=== PATIENT | female | born 1970 | race Caucasian/White ===

== ENCOUNTER → 2018-07-22 17:08 | Outpatient (CLI) | payer BC, SELFPAY ==
[2017-02-16 08:40] VITALS: BMI 33.1
[2018-07-22 18:10] LABS: Amphetamine Urine VISTA NEGATIVE (<1000 ng/mL); Barbiturate Urine VISTA NEGATIVE (< 200 ng/mL); Benzodiazepine Urine VISTA NEGATIVE (< 200 ng/mL); Cocaine Urine VISTA NEGATIVE (< 300 ng/mL); Ecstacy Urine VISTA NEGATIVE (< 500 ng/mL); Methadone Urine VISTA NEGATIVE (< 300 ng/mL); PCP Urine VISTA NEGATIVE (< 25 ng/mL); THC Urine VISTA NEGATIVE (< 50 ng/mL); Vista UDS pH Range 7
== END ==
PROVIDERS: Referring Provider Anesthesiology Pain Medicine; Visit Provider Anesthesiology Pain Medicine
DX: F11.20 Opioid dependence, uncomplicated (principal)
CPT/HCPCS: 80307

== ENCOUNTER → 2019-05-13 11:20 | Outpatient (CLI) | payer BC, SELFPAY ==
[2019-05-13 10:47] VITALS: BMI 31.4
--- NOTE | 2019-05-13 11:21 | RAD_ITS ---
STUDY: X-RAY CHEST REASON FOR EXAM: Female, 49 years old. Cough, wheezing x 2 weeks TECHNIQUE: PA and lateral views of the chest. COMPARISON: Comparison is made with prior study dated February 16, 2017. FINDINGS: Hyperinflation. Scattered calcified granulomas. There is no demonstrated pleural abnormality. Normal size heart. Normal mediastinum and alexia. Normal visualized pulmonary arteries. Normal visualized aortic arch and descending thoracic aorta. There are degenerative changes of the visualized thoracic spine. Normal visualized ribs, clavicles, and shoulders. There is no demonstrated abnormality of the visualized soft tissue structures of the upper abdomen. RAD/Chest PA and Lateral IMPRESSION: Hyperinflation. Scattered calcified granulomas. Electronically Signed: Norris Montalvo, at 13:15 EDT , Service support ,
== END ==
PROVIDERS: PCP Internal Medicine; Referring Provider Nurse Practitioner Family; Visit Provider Nurse Practitioner Family
DX: R05 Cough (principal)
CPT/HCPCS: 71046

== ENCOUNTER → 2019-06-10 07:07 | Outpatient (CLI) | payer BC, SELFPAY ==
[2019-05-23 09:51] VITALS: BMI 33.1
--- NOTE | 2019-06-12 11:34 | PFT ---
INTRODUCTION: The patient is a 49-year-old female that presents for pulmonary function studies secondary to a diagnosis of shortness of breath. Respiratory therapy reports good patient effort. Bronchodilators were used during testing. INTERPRETATION: Forced expiration spirometry demonstrates no evidence of a large airways obstructive ventilatory defect. There was no significant response to aerosolized bronchodilators, based upon strict ATS criteria. Spirograms are of good quality and plateau normally. Body plethysmography was performed and reveals lung volumes to be within normal limits. Diffusing capacity by single breath CO is mildly reduced at 64% of predicted. IMPRESSION: Isolated mild reduction in diffusing capacity, which could be related to an underlying pulmonary vascular disorder such as pulmonary hypertension. Clinical correlation is recommended.
== END ==
LOC: PSN 07:08
PROVIDERS: PCP Internal Medicine; Referring Provider Internal Medicine; Visit Provider Internal Medicine
DX: R06.02 Shortness of breath (principal); Z72.0 Tobacco use
CPT/HCPCS: 94060; 94726; 94729

== ENCOUNTER 2019-12-01 10:39 | Emergency (ER) | payer BC, SELFPAY ==
[2019-06-04 12:53] VITALS: BMI 33.1
[2019-12-01 10:40] VITALS: BP 141/103; PULSE 95; RESP 18; TEMP 36.6; O2SAT 100; BMI 31.3
--- NOTE | 2019-12-01 11:22 | ED.DCSUM_ITS ---
History of Present Illness Chief Complaint: General Illness Informant: Patient Onset: Days Context: Gradual Onset Timing: Continuous Narrative: She is a 49-year-old female that has a history of running back pain presenting with myalgias, low-grade fever, left lower jaw pain and swelling as well as a coronavirus exposure. Patient states she has a history of dental infection and has appointment actually to see her dentist the middle next month. 2 days ago she woke up and had some swelling and discomfort in her left lower jaw. She had some leftover amoxicillin that she started taking but is continued to have swel ling and discomfort. She denies any difficulty swallowing. She denies any pinpoint dental pain. Today she took her temperature and is 100.1. She take Tylenol for this. She notes over the past 2 days she has had a mild cough, wheezing, runny nose, abdominal cramping and generalized malaise. She was notified today that the person she works next to at work tested positive for Covid 19. Patient denies any difficulty breathing or shortness of breath. She does have an albuterol inhaler that she uses as needed at home. She denies any chest pain or sore throat. She does have some mild discomfort in her left ear. She does smoke cigarettes but states she is trying to quit. No other complaints at this time. Past Medical History - Allergies and Home Meds Allergies/Adverse Reactions: Allergies tramadol Allergy (Verified 12/01/19 10:44) Other SEIZURES Primary Care Physician: Gerardo Marinelli MD [Primary Care Provider] - Past Medical History: - - Tobacco abuse, chronic back pain Surgical History: noncontributory Smoking Status: Current every day smoker Alcohol: None Drugs: None Review of Systems General: Reports: Chills, Fever, Malaise. Denies: Sweats Eyes: Denies: Visual changes - bilaterally, Diplopia ENT: Reports: Left ear pain, - - left lower jaw swelling . Denies: Rhinorrhea, Sore throat Cardiovascular: Denies: Chest pain, Palpitations Respiratory: Reports: Cough. Denies: Dyspnea, Sputum, Dyspnea on exertion Gastrointestinal: Reports: Abdominal pain, Nausea. Denies: Vomiting, Diarrhea, Melena, Hematochezia Genitourinary: Denies: Dysuria, Hematuria, Frequency Musculoskeletal: Reports: Myalgias. Denies: Back pain, Extremity Pain Skin: Denies: Rash, Wounds Neurological: Denies: Headache, Weakness, Numbness Physical Exam Vital Signs/Narrative: Vital Signs Temp Pulse Resp BP Pulse Ox 12/01/19 10:40 98 F 95 18 141/103 H 100 Inital Vital Signs reviewed: Yes General: Well nourished, Well developed, No Acute Distress Head: Normocephalic, Atraumatic Eyes: Perrl, EOMI ENT: Moist mucous membranes, No rhinorrhea, TM's clear, - - Localized swelling of the left mandible. No appreciable abscess. There is swelling of the gingiva around the left lower premolars. Widespread dental decay present. No pinpoint area of dental tenderness. Sublingual mucosa is soft. No trismus. Negative for: Nasal congestion, Sinus tenderness Neck: Supple, Nontender, No JVD, - - Left anterior superior chain lymphadenopathy present. Cardiovascular: Regular rate, Regular rhythm, No murmurs Respiratory: No distress, Chest nontender, Wheezing. Negative for: Decreased Air Movement, Retractions Abdomen: Soft, Nontender, Nondistended, Normal bowel sounds Back: Nontender, Normal Inspection Extremities: Nontender, No edema Skin: Normal color, No rash Neurological: Alert, Oriented x3, Cranial nerves II-XII grossly intact, Normal Strength, Normal Sensation Psychological: Normal affect, Normal Mood Diagnostic/Tx/Re-eval - Medical Decision Making Evaluated for jaw swelling with associated dental discomfort as well as generalized malaise. She has a known Covid exposure. Patient will be tested for Covid but I suspect likely that is causing her systemic symptoms. She is also placed on Pen-VK for suspected dental infection. There is no obvious abscess amenable to I&D at this time. She does have follow-up with her dentist in a couple weeks. She is counseled to quit smoking. Patient is counseled on quarantine precautions. She not have any airway compromise at this time. She is having some slight wheezing but has normal vital signs. She will be started on a course of prednisone for likely COPD/asthma exacerbation however I do not think a chest x-ray is indicated at this time. Patient has albuterol inhaler to use at home. She is given Motrin for her discomfort. Patient is counseled on return precautions and signs of dehydration or worsening shortness of breath. She verbalizes agreement understand this plan. She is discharged home in stable condition. ED Disposition - Plan for ED Patient: Disposition: Home or Assisted Living Diagnosis: Dentalgia, Suspected COVID-19 virus infection, Wheezing Instructions: ED ABSCESS DENTAL, ED PNEUMONITIS Adult Prescriptions: Prednisone [Deltasone] 40 mg PO DAILY #8 tab Transmission Status: Pending to [id number] Ibuprofen [Motrin] 600 mg PO Q6H PRN PRN #20 tab PRN Reason: Pain Score 1-10/10 Transmission Status: Pending to [id number] Penicillin V Potassium 500 mg PO 4X/DAY #40 tab Transmission Status: Pending to [id number] Referrals: Gerardo Marinelli MD [Primary Care Provider] - Additional Instructions: Please follow-up with your dentist. You were tested for Covid today. This will take a couple days for the results to come back but in the meantime act as if you do have it and quarantine yourself. Drink lots of fluids to prevent dehydration. Use your inhaler as needed for shortness breath or wheezing. Return to the emergency room immediately if you start having a hard time breathing.
[2019-12-01] MEDS: Penicillin Vk 250 MG Tablet 500 MG PO (12:00)
[2019-12-01] MEDS: predniSONE 20 MG Tablet 60 MG PO (12:03)
[2019-12-01] MEDS: Ibuprofen 600 MG Tablet PO (12:03)
== END 2019-12-01 12:17 | disposition home or self-care (01) ==
PROVIDERS: Emergency Provider Emergency Medicine; PCP Internal Medicine
DX: K08.89 Other specified disorders of teeth and supporting structures (principal); R06.2 Wheezing; Z20.828 Contact with and (suspected) exposure to other viral communicable diseases; F17.210 Nicotine dependence, cigarettes, uncomplicated; Z88.5 Allergy status to narcotic agent; Z88.8 Allergy status to other drugs, medicaments and biological substances
CPT/HCPCS: 87635; 99281; U0003

== ENCOUNTER → 2020-03-01 16:32 | Outpatient (CLI) | payer BC, SELFPAY | PROVIDERS: PCP Internal Medicine; Referring Provider Otolaryngology; Visit Provider Otolaryngology | DX: H93.12 Tinnitus, left ear (principal) ==

== ENCOUNTER 2020-06-11 18:02 | Emergency (ER) | payer BC, SELFPAY ==
[2020-06-11 18:03] VITALS: BP 163/105; PULSE 85; RESP 18; TEMP 36.6; O2SAT 100; BMI 29.9
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
[2020-06-11] MEDS: Clindamycin HCl 150 MG Capsule 450 MG PO (18:55)
[2020-06-11 18:57] VITALS: BP 142/94; PULSE 82
== END 2020-06-11 19:17 | disposition home or self-care (01) ==
LOC: ED 19:06
PROVIDERS: Emergency Provider Student in an Organized Health Care Education/Training Program; PCP Internal Medicine
DX: L03.811 Cellulitis of head [any part, except face] (principal); F17.200 Nicotine dependence, unspecified, uncomplicated; M19.90 Unspecified osteoarthritis, unspecified site; Z79.1 Long term (current) use of non-steroidal anti-inflammatories (NSAID)
CPT/HCPCS: 99283

== ENCOUNTER → 2020-08-05 14:37 | Outpatient (CLI) | payer BC, SELFPAY ==
[2020-06-16 15:17] VITALS: BMI 29.9
--- NOTE | 2020-08-05 14:45 | RAD_ITS ---
STUDY: X-RAY - RIGHT FOOT CLINICAL: Female, 50 years old. FOOT PAIN TECHNIQUE: 3 view(s) of the foot. COMPARISON: None. FINDINGS: Normal talus, calcaneus, and tarsal bones. Small plantar calcaneal enthesophyte. 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 Normal metatarsi. Normal metatarsophalangeal joint of the great toe. There is a bipartite tibial sesamoid. Normal interphalangeal joint of the great toe. Normal phalanges of the great toe. Normal second through fifth metatarsophalangeal joints. Normal interphalangeal joints and phalanges of the lesser toes. The soft tissue structures are unremarkable. 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 MRI may be useful. Electronically Signed: Collin Leach MD at 8:53 EDT Tel , Service support ,
== END ==
LOC: RAD 14:38
PROVIDERS: PCP Internal Medicine; Referring Provider Anesthesiology Pain Medicine; Visit Provider Anesthesiology Pain Medicine
DX: M79.673 Pain in unspecified foot (principal)
CPT/HCPCS: 73630

== ENCOUNTER 2021-11-02 09:27 | Emergency (ER) | payer BC, SELFPAY ==
[2021-11-02 09:28] VITALS: BP 168/98; PULSE 100; RESP 18; TEMP 36.8; O2SAT 100; BMI 28.6
--- NOTE | 2021-11-02 09:41 | EX.ED.DYSGE1 ---
HPI History of Present Illness Chief Complaint: Abd Pain Informant: patient Narrative Narrative: 1-year-old female presenting with concerns for a hernia. The patient states that she does a lot of heavy lifting at work. She has been experiencing an intermittent burning sensation in her right inguinal region for the past several weeks. Over the past week she has felt a bulge that comes and goes but is usually there when she stands. This morning she states she is in a severe amount of pain. She notes that she is unable to really bend over or stand up straight. She denies any urinary symptoms. No vomiting. PFSH PFS Medical History Arthritis Back pain Cervical cancer Fatigue History of abscess of skin and subcutaneous tissue Knee pain Scoliosis Tubal Home Medications hydrocodone 7.5 mg-acetaminophen 325 mg tablet 1 tab PO 4X/DAY 02/16/17 [History Last Taken Unknown] ascorbic acid (vitamin C) 500 mg capsule 500 mg PO DAILY 04/28/19 [History Last Taken Unknown] pregabalin 75 mg capsule 75 mg PO BID 05/06/19 [History Last Taken Unknown] albuterol sulfate 90 mcg/actuation breath activated powder inhaler 2 inh inhalation Q6H PRN shortness of breath or wheezing #1 ea 05/07/19 [Rx Last Taken Unknown] fluticasone propionate 50 mcg/actuation nasal spray,suspension See Rx Instructions .Route .COMPLEX #16 mL 06/04/19 [Rx Last Taken Unknown] celecoxib 200 mg capsule 200 mg PO DAILY 06/11/20 [History Last Taken Unknown] budesonide-formoterol HFA 80 mcg-4.5 mcg/actuation aerosol inhaler (Symbicort) 2 puff inhalation BID PRN Bronchospasm 11/02/21 [History Last Taken Unknown] montelukast 10 mg tablet 10 mg PO QHS PRN allergies 11/02/21 [History Last Taken Unknown] Allergy/AdvReac Type Severity Reaction Status Date / Time tramadol Allergy Other Verified 11/02/21 09:29 Family History Father Diabetes CVA (cerebral vascular accident) Sister Ovarian cancer Son , at 6 weeks - CHF Heart disease Other Cancer Surgical History History of arthroscopic knee surgery History of hysterectomy History of knee replacement Social History Smoking Status: Current every day smoker tobacco type: cigarettes alcohol intake: current alcohol intake frequency: holidays/special occasions only substance use type: does not use what type of physical activity do you participate in: walking ROS ROS ED Constitutional Constitutional ED: Denies chills or weight loss Eyes Eyes: Denies change in vision or diplopia ENT ENT ED: Denies ear pain, rhinorrhea or sore throat Cardiovascular Cardiovascular: Denies chest pain, orthopnea, palpitations or racing heartbeat Respiratory/Chest Respiratory/Chest: Denies cough, dyspnea or orthopnea Gastrointestinal Gastrointestinal: Reports abdominal pain; Denies diarrhea, nausea or vomiting Genitourinary Genitourinary ED: Denies dysuria, hematuria or urinary frequency Musculoskeletal Musculoskeletal: Denies arthralgias or myalgias Integumentary Denies abscess or rash Neurologic Neurologic: Denies headache(s) or weakness Psychiatric Psychiatric: Denies anxiety, depression, suicidal ideation or suicidal thoughts Endocrine Endocrinology: Denies polydipsia, polyphagia or polyuria Allergic/Immunologic Allergic/Immunologic ED: Denies mouth swelling, tongue swelling or urticaria EXAM Physical Exam Narrative Exam Narrative: Patient appears in pain Const Vital Signs: 11/02/21 09:28 11/02/21 10:46 Temperature 98.3 F Temperature Source Temporal Pulse Rate 100 91 Respiratory Rate 18 18 Blood Pressure 168/98 H 144/92 H Blood Pressure Mean 121 109 Pulse Ox 100 99 Oxygen Delivery Method Room Air Room Air Positive well nourished and well developed General Appearance ED: well developed HEENT Reports normocephalic, head/scalp atraumatic and moist mucous membranes Eyes PERRL and EOMs intact bilaterally Neck no lymphadenopathy, supple and no JVD Resp normal respiratory effort and clear to auscultation bilaterally Cardio regular rate, regular rhythm and no murmurs GI normal to inspection, nondistended, normoactive bowel sounds and non-tender GI Narrative: There is a palpable inguinal hernia. It is very tender to palpation. Palpation: soft Back/Spine no CVA tenderness and normal ROM Extremity normal to inspection General Extremety ED: Negative for edema General Extremity: Negative for edema Neuro oriented x3 and CN's II-XII intact bilaterally Sensorium / Orientation: alert Motor Exam: strength 5/5 throughout Psych mental status grossly normal Mood & Affect: Negative for depressed or tearful Skin no rashes or lesions noted and no wounds MDM MDM MDM Narrative Medical decision making narrative: IV was established and the patient received pain medication. I was successful at reducing the hernia. Basic blood work was negative. CT of the abdomen pelvis was obtained. There is a small right inguinal hernia containing fat and a moderate sized umbilical hernia containing fat. Patient was reassessed and is still having significant pain in the inguinal region. She is continues to describe it as a burning sensation. I spoke with our surgeon Dr. Cleveland happy to see the patient in the office. I gave her additional Dilaudid and a Lidoderm patch. The patient was reassessed. Lab Data Attestation: I reviewed the patient's lab results. Labs: Laboratory Results - last 24 hr 11/02/21 11/02/21 11/02/21 09:53 09:53 09:53 WBC 6.9 RBC 4.31 Hgb 13.9 Hct 41.7 MCV 96.8 MCH 32.3 H MCHC 33.3 RDW Std Deviation 46.0 H RDW Coeff of Efraín 12.8 Plt Count 297 MPV 9.1 Immature Gran % (Auto) 0.300 Neut % (Auto) 59.2 Lymph % (Auto) 26.3 [place] % (Auto) 12.6 H Eos % (Auto) 0.9 Baso % (Auto) 0.7 Absolute Neuts (auto) 4.1 Absolute Lymphs (auto) 1.81 Nucleated RBC % 0 Sodium 138 Potassium 4.3 Chloride 104 Carbon Dioxide 27.0 Anion Gap 7 BUN 9 Creatinine 0.64 Estim Creat Clear Calc 87.78 Est GFR (MDRD) Af Amer 124 Est GFR (MDRD) Non-Af 102 BUN/Creatinine Ratio 14.0 Glucose 106 Lactic Acid 1.0 Calcium 9.2 Total Bilirubin 0.40 AST 13 L ALT 17 Alkaline Phosphatase 82 Total Protein 8.0 Albumin 3.7 Globulin 4.3 H Albumin/Globulin Ratio 0.9 Radiography Diagnostic Testing: Clinical Impression(s) from Imaging Studies Abdomen/Pelvis CT 11/02/21 10:12 IMPRESSION: Moderate sized umbilical hernia containing fat. There is evidence of prior anterior abdominal wall hernia repair. Small right inguinal hernia containing fat. Status post cholecystectomy. Electronically Signed: Norris Montalvo MD at 10:36 EDT , Discharge Plan Triage Chief Complaint: Abd Pain ED Provider: Kaden Lay Dx/Rx/DC Orders Clinical Impression: Inguinal hernia, right, Hernia, umbilical, Acute pain Prescriptions: No Action ascorbic acid (vitamin C) 500 mg capsule 500 mg PO DAILY pregabalin 75 mg capsule 75 mg PO BID hydrocodone-acetaminophen 1 TABLET tablet 1 tab PO 4X/DAY Label Comments: TAKE 1 TABLET BY MOUTH 4 TIMES A DAY celecoxib 200 mg capsule 200 mg PO DAILY montelukast 10 mg tablet 10 mg PO QHS PRN (Reason: allergies) budesonide-formoterol [Symbicort] 80-4.5 mcg/actuation HFA aerosol inhaler 2 puff INHALATION BID PRN (Reason: Bronchospasm) albuterol sulfate 90 mcg/actuation aerosol powdr breath activated 2 inh INHALATION Q6H PRN (Reason: shortness of breath or wheezing) Qty: 1 1RF fluticasone propionate 50 mcg/actuation spray,suspension See Rx Instructions .ROUTE .COMPLEX Qty: 16 1RF Dose Instruction: USE 2 SPRAYS IN EACH NOSTRIL ONCE DAILY Rx Instructions: USE 2 SPRAYS IN EACH NOSTRIL ONCE DAILY Primary Care Provider: Gerardo Marinelli Referrals: Gerardo Marinelli MD [Primary Care Provider] -
[2021-11-02] MEDS: HYDROmorphone 1 MG/ML Syringe IV ×2 (09:58→11:00)
[2021-11-02] MEDS: 0.9% Normal Saline 1,000 ML 200 ML IV (09:59)
[2021-11-02 10:09] LABS: Absolute Lymphocyte Count 1.81 X10^3/uL (0.83-4.51); Absolute Neutrophil Count 4.1 X10^3/uL (2.0-7.7); Basophil# 0.05 X10^3/uL; Basophil% 0.7 % (0-1); Eosinophil# 0.06 X10^3/uL; Eosinophils% 0.9 % (0-5); Hematocrit 41.7 % (37-47); Hemoglobin 13.9 g/dL (12.0-15.0); Lymphocyte # 1.81 X10^3/ul (0.83-4.51); Lymphocyte % 26.3 % (19-41); Mean Corp Hgb Conc 33.3 g/dL (32-36); Mean Corpuscular Hgb 32.3 pg (27.0-32.0); Mean Corpuscular Volume 96.8 fL (81-99); Mean Platelet Vol. 9.1 fl (6.2-12.0); Monocyte# 0.87 X10^3/uL; Monocyte% 12.6 % (0-10); NRBC Flagged by Analyzer 0 % (0-5); Neutrophil # 4.08 X10^3/uL (2.7-7.7); Neutrophil % 59.2 % (47-70); Platelet Count 297 K/mm3 (150-450); RBC Distribution Width CV 12.8 % (11.6-14.6); Red Blood Count 4.31 M/mm3 (4.2-5.4); White Blood Count 6.9 K/mm3 (4.4-11.0)
[2021-11-02] MEDS: Contrast Allergy Safety Check IV (10:09)
--- NOTE | 2021-11-02 10:12 | CT_ITS ---
STUDY: CT ABDOMEN AND PELVIS WITH CONTRAST REASON FOR EXAM: Female, 51 years old. Strangulated inguinal hernia/ RLQ Pain RADIATION DOSAGE (If Supplied By Facility): CTDIvol = ( 11.13 ) mGy, DLP = ( 648.70 ) mGycm TECHNIQUE: Transaxial images were obtained from the dome of the diaphragm to the symphysis pubis without oral contrast. IV 100mL Isovue-300 was administered. Sagittal and coronal images were reconstructed. Individualized dose optimization techniques were used for this CT. COMPARISON: Comparison is made with prior study dated 07/21/2015. FINDINGS: Stable minimal linear scarring in the medial aspect of the lingular segment of the left upper lobe. Coronary artery calcification. Normal liver. Normal gallbladder and extrahepatic biliary system. Normal spleen. Normal pancreas. Normal bilateral adrenal glands. Normal right kidney. Normal left kidney. Normal visualized stomach. Normal small intestine. There are scattered colonic diverticula consistent with diverticulosis. There is non-visualization of the appendix. Normal abdominal aorta. Normal inferior vena cava. Normal retroperitoneum. Normal urinary bladder. There is absence of the uterus consistent with a prior hysterectomy. Calcified phleboliths are seen in the pelvis. There is a small umbilical hernia containing fat. Moderate-sized umbilical hernia containing fat. Surgical clips are seen deep to the anterior abdominal wall most likely secondary to prior ventral hernia repair. There are mild degenerative changes of the visualized lumbar spine. CT/Abdomen/Pelvis W IV Cont ONLY IMPRESSION: Moderate sized umbilical hernia containing fat. There is evidence of prior anterior abdominal wall hernia repair. Small right inguinal hernia containing fat. Status post cholecystectomy. Electronically Signed: Norris Montalvo MD at 10:36 EDT ,
[2021-11-02 10:24] LABS: ALB/GLOB Ratio 0.9 RATIO (0.9-2.4); AST(SGOT) 13 U/L (15-37); Alanine Aminotransfer ALT/SGPT 17 U/L (13-56); Albumin, Serum 3.7 g/dL (3.2-5.0); Alkaline Phosphatase 82 U/L (45-117); Anion Gap 7 (5-15); BUN 9 mg/dL (7-18); Calcium,Total 9.2 mg/dL (8.5-10.1); Chloride 104 mmol/L (98-107); Creatinine, Serum 0.64 mg/dL (0.55-1.02); EST Glomerular Filtration Rate 102 mL/min (>60); Est Glom Filt Rate - Afr Amer 124 mL/min (>60); Estimated Creatinine Clearance 87.78 ml/min; Globulin 4.3 g/dL (2.2-4.2); Glucose 106 mg/dL (74-106); Potassium 4.3 mmol/L (3.5-5.1); Sodium Level 138 mmol/L (136-145)
[2021-11-02 10:46] VITALS: BP 144/92; PULSE 91; RESP 18; O2SAT 99
[2021-11-02] MEDS: Lidocaine 5% Patch 1 PATCH TOPICAL (11:01)
[2021-11-02 12:05] VITALS: BP 140/88; PULSE 77; RESP 16; O2SAT 97
== END 2021-11-02 12:24 | disposition home or self-care (01) ==
PROVIDERS: Emergency Provider Emergency Medicine; PCP Internal Medicine; Visit Provider Emergency Medicine
DX: K42.9 Umbilical hernia without obstruction or gangrene (principal); F17.210 Nicotine dependence, cigarettes, uncomplicated; K40.90 Unilateral inguinal hernia, without obstruction or gangrene, not specified as recurrent
CPT/HCPCS: 74177; 80053; 83605; 85025; 96361; 96374; 96376; 99283; J7030; Q9967; A4216

== ENCOUNTER 2022-10-16 09:19 | Emergency (ER) | payer BC, SELFPAY ==
[2022-10-16 09:20] VITALS: BP 161/105; PULSE 83; RESP 22; TEMP 35.7; O2SAT 100
[2022-10-16 09:39] VITALS: BMI 28.4
--- NOTE | 2022-10-16 10:07 | EX.ED.DYSGE1 ---
HPI History of Present Illness Chief Complaint: Shortness of Breath Informant: patient Onset/Context/Timing Onset: Days (3) Context: Sudden Onset Timing: Continuous Quality: Stabbing Location: Left lower chest and back Worsened by: Inhalation Relieved by: Nothing Narrative Narrative: Patient presents with shortness of breath and chest pain that has been getting worse over the past 3 days. Patient states her pain is over the left side of her chest and radiates into her back. Patient describes it as stabbing. Patient states it is worse when she breathes in. Patient states nothing seems to help with it. Patient states she is on [place] for chronic back pain. Patient states she has taken this with no improvement. Patient denies any fevers or chills. Patient denies any nausea or vomiting. Patient denies any headaches. [facility] Medical History Arthritis Back pain Cervical cancer Fatigue History of abscess of skin and subcutaneous tissue Knee pain Scoliosis Tubal Home Medications hydrocodone 7.5 mg-acetaminophen 325 mg tablet 1 tab PO 4X/DAY 02/16/17 [History Last Taken Unknown] ascorbic acid (vitamin C) 500 mg capsule 500 mg PO DAILY 04/28/19 [History Last Taken Unknown] pregabalin 75 mg capsule 75 mg PO BID 05/06/19 [History Last Taken Unknown] albuterol sulfate 90 mcg/actuation breath activated powder inhaler 2 inh inhalation Q6H PRN shortness of breath or wheezing #1 ea 05/07/19 [Rx Last Taken Unknown] celecoxib 200 mg capsule 200 mg PO DAILY 06/11/20 [History Last Taken Unknown] budesonide-formoterol HFA 80 mcg-4.5 mcg/actuation aerosol inhaler (Symbicort) 2 puff inhalation BID PRN Bronchospasm 11/02/21 [History Last Taken Unknown] lidocaine 5 % topical patch (Lidoderm) 1 patch topical DAILY #15 ea 11/02/21 [Rx Last Taken Unknown] Allergy/AdvReac Type Severity Reaction Status Date / Time tramadol Allergy Other Verified 11/03/21 09:27 Family History Father Diabetes CVA (cerebral vascular accident) Sister Ovarian cancer Son , at 6 weeks - CHF Heart disease Other Cancer Surgical History History of arthroscopic knee surgery History of hysterectomy History of knee replacement Hx of hernia repair Social History Smoking Status: Current every day smoker tobacco type: cigarettes alcohol intake: current alcohol intake frequency: holidays/special occasions only substance use type: does not use what type of physical activity do you participate in: walking ROS ROS ED Constitutional Constitutional ED: Denies chills or fever(s) Eyes Eyes: Denies blurry vision or change in vision ENT ENT ED: Denies rhinorrhea or sore throat Cardiovascular Cardiovascular: Reports chest pain; Denies palpitations Respiratory/Chest Respiratory/Chest: Reports dyspnea; Denies cough Gastrointestinal Gastrointestinal: Denies nausea or vomiting Genitourinary Genitourinary ED: Denies dysuria or hematuria Musculoskeletal Musculoskeletal: Reports back pain; Denies neck pain Integumentary Denies abscess or rash Neurologic Neurologic: Denies headache(s) or weakness Allergic/Immunologic Allergic/Immunologic ED: Denies mouth swelling or urticaria EXAM Physical Exam Const Vital Signs: 10/16/22 09:20 10/16/22 09:44 Temperature 96.2 F L Temperature Source Temporal Pulse Rate 83 Respiratory Rate 22 H Respiratory Depth Shallow Respiratory Pattern Tachypnea Blood Pressure 161/105 H Blood Pressure Mean 123 Pulse Ox 100 Positive well nourished and well developed General Appearance ED: well developed and NAD HEENT Reports moist mucous membranes Neck supple and no JVD Chest Wall Chest Narrative: There is mild tenderness over the left lower ribs laterally, there is no bony crepitance or step-off. There is no subcutaneous emphysema noted. Resp normal respiratory effort and clear to auscultation bilaterally Effort and Inspection: pain with movement Cardio regular rate, regular rhythm and no murmurs GI normal to inspection, nondistended, normoactive bowel sounds and non-tender Palpation: soft Extremity normal to inspection General Extremety ED: Negative for edema or tenderness General Extremity: Negative for edema Neuro oriented x3, CN's II-XII intact bilaterally and no sensory deficits noted Sensorium / Orientation: alert Motor Exam: strength 5/5 throughout Psych mental status grossly normal Skin no rashes or lesions noted MDM MDM MDM Narrative Medical decision making narrative: Differential diagnosis includes pneumothorax, pneumonia, pulmonary embolism, pleurisy, musculoskeletal pain, cardiac dysrhythmia, and cardiac ischemia. EKG will be obtained to assess for cardiac dysrhythmia and cardiac ischemia. Chest x-ray will be obtained to assess for pneumonia and pneumothorax. CBC will be obtained to assess for leukocytosis and anemia. Basic metabolic profile will be obtained to assess for electrolyte abnormality and renal function. High-sensitivity troponin will be obtained to assess for cardiac ischemia. D-dimer will be obtained to assess for pulmonary embolism. Lab Data Attestation: I reviewed the patient's lab results. Lab results narrative: CBC was reviewed and was within normal limits. Basic metabolic profile was reviewed and was within normal limits. High-sensitivity troponin was reviewed and was normal at 4. D-dimer was reviewed and was normal at 0.29. Labs: Laboratory Results - last 24 hr 10/16/22 10:25 WBC 6.6 RBC 4.04 L Hgb 12.9 Hct 39.4 MCV 97.5 MCH 31.9 MCHC 32.7 RDW Std Deviation 44.6 H RDW Coeff of Efraín 12.5 Plt Count 252 MPV 9.8 Immature Gran % (Auto) 0.600 Neut % (Auto) 75.5 H Lymph % (Auto) 13.5 L [place]verse % (Auto) 9.1 Eos % (Auto) 0.8 Baso % (Auto) 0.5 Absolute Neuts (auto) 5.0 Absolute Lymphs (auto) 0.89 Nucleated RBC % 0 D-Dimer Quant (PE/DVT) 0.29 Sodium 145 Potassium 4.0 Chloride 110 H Carbon Dioxide 31.0 Anion Gap 4 L BUN 10 Creatinine 0.71 Estim Creat Clear Calc 78.22 Est GFR (MDRD) Af Amer 110 Est GFR (MDRD) Non-Af 91 BUN/Creatinine Ratio 14.1 Glucose 105 Calcium 8.8 Troponin I High Sens 4 Radiography Chest X-Ray - ED: 2 View, Read by ED Physician, Read by Radiologist and No Acute Disease Diagnostic Testing: Clinical Impression(s) from Imaging Studies Chest X-Ray 10/16/22 10:45 IMPRESSION: Hyperinflation. No acute abnormality is seen. Electronically Signed: Norris Montalvo MD at 11:09 EDT , PA and lateral chest x-ray was obtained. There are 2 views. On my independent interpretation, lung herman are hyperinflated. There is normal cardiac silhouette. Bony thorax is normal. There is no acute process noted. Radiologist also interpreted the x-ray and agrees. EKG Initial EKG: Attestation: I personally reviewed and interpreted this EKG as follows: Interpretation: Sinus Rhythm (67) and No Acute Injury Pattern Comments: EKG was obtained. On my independent interpretation, it showed a normal sinus rhythm with a rate of 67. NC interval, QRS interval, and QTc intervals were all normal. [place] was normal. There are no acute ST or T wave changes. Prior EKG tracings: available for review Prior: Unchanged (02/16/2017) Treatment and Re-Evaluation :: Patient was given a dose of morphine here. Patient was feeling better on reevaluation. Patient was advised of her findings. Patient was advised that this could be pleurisy or musculoskeletal pain. Patient was instructed to take ibuprofen as needed for pain. Patient also states she has [place] at home. Patient was instructed to take this as needed for pain as well. Patient has a HEART score of 2. Patient was advised that this is low risk for acute cardiac event. Patient was instructed to follow-up with her primary care physician in 5 to 7 days. Patient understood and was agreeable with the plan. All questions were answered. Discharge Plan Triage Chief Complaint: Shortness of Breath ED Provider: Onesimo Gomez Dx/Rx/DC Orders Clinical Impression: Acute chest wall pain Instructions: ED Chest Pain, Noncardiac Prescriptions: No Action ascorbic acid (vitamin C) 500 mg capsule 500 mg PO DAILY pregabalin 75 mg capsule 75 mg PO BID hydrocodone-acetaminophen 1 TABLET tablet 1 tab PO 4X/DAY Patient Comments: TAKE 1 TABLET BY MOUTH 4 TIMES A DAY celecoxib 200 mg capsule 200 mg PO DAILY budesonide-formoterol [Symbicort] 80-4.5 mcg/actuation HFA aerosol inhaler 2 puff INHALATION BID PRN (Reason: Bronchospasm) lidocaine [Lidoderm] 5 % adhesive patch,medicated 1 patch topical DAILY Qty: 15 0RF Rx Instructions: leave on most painful area for up to 12 hrs albuterol sulfate 90 mcg/actuation aerosol powdr breath activated 2 inh INHALATION Q6H PRN (Reason: shortness of breath or wheezing) Qty: 1 1RF Primary Care Provider: Gerardo Marinelli Referrals: Gerardo Marinelli MD [Primary Care Provider] - 3-5 Days Disposition Disposition: Home, Self Care
--- NOTE | 2022-10-16 10:15 | EKG12_ITS ---
Test Reason : SOB Blood Pressure : / mmHG Vent. Rate : 067 BPM Atrial Rate : 067 BPM P-R Int : 186 ms QRS Dur : 078 ms QT Int : 400 ms P-R-T Axes : 060 055 059 degrees QTc Int : 422 ms Normal sinus rhythm Normal ECG Confirmed by SUZY CAPONE, CARROLL ([id number]), newspaper photo editor EUGENE MARTIN ([id number]) on 10/19/2022 1:50:19 PM Referred By: Confirmed By:CARROLL ALMONTE MD
[2022-10-16] MEDS: Morphine 4 MG/ML Syringe IV (10:27)
[2022-10-16 10:34] LABS: Absolute Lymphocyte Count 0.89 X10^3/uL (0.83-4.51); Basophil# 0.03 X10^3/uL; Basophil% 0.5 % (0-1); Eosinophil# 0.05 X10^3/uL; Eosinophils% 0.8 % (0-5); Hematocrit 39.4 % (37-47); Hemoglobin 12.9 g/dL (12.0-15.0); Lymphocyte # 0.89 X10^3/ul (0.83-4.51); Lymphocyte % 13.5 % (19-41); Mean Corp Hgb Conc 32.7 g/dL (32-36); Mean Corpuscular Hgb 31.9 pg (27.0-32.0); Mean Corpuscular Volume 97.5 fL (81-99); Mean Platelet Vol. 9.8 fl (6.2-12.0); Monocyte% 9.1 % (0-10); NRBC Flagged by Analyzer 0 % (0-5); Neutrophil # 4.96 X10^3/uL (2.7-7.7); Neutrophil % 75.5 % (47-70); Platelet Count 252 K/mm3 (150-450); RBC Distribution Width CV 12.5 % (11.6-14.6); RBC Distribution Width SD 44.6 fl (35.1-43.9); Red Blood Count 4.04 M/mm3 (4.2-5.4); White Blood Count 6.6 K/mm3 (4.4-11.0)
--- NOTE | 2022-10-16 10:45 | RAD_ITS ---
STUDY: X-RAY CHEST REASON FOR EXAM: Female, 52 years old. Chest pain TECHNIQUE: PA and lateral views of the chest. COMPARISON: Comparison is made with prior study dated May 13, 2019. FINDINGS: EKG electrodes are seen. Hyperinflation. Scattered calcified granulomas. There is no demonstrated pleural abnormality. Normal size heart. Normal mediastinum and alexia. Normal visualized pulmonary arteries. Normal visualized aortic arch and descending thoracic aorta. There are diffuse degenerative changes of the visualized thoracic spine. Normal visualized ribs, clavicles, and shoulders. There is no demonstrated abnormality of the visualized soft tissue structures of the upper abdomen. RAD/Chest PA and Lateral IMPRESSION: Hyperinflation. No acute abnormality is seen. Electronically Signed: Norris Montalvo MD at 11:09 EDT ,
[2022-10-16 10:51] LABS: Anion Gap 4 (5-15); BUN 10 mg/dL (7-18); BUN/Creat Ratio 14.1 RATIO (10-20); Calcium,Total 8.8 mg/dL (8.5-10.1); Chloride 110 mmol/L (98-107); Creatinine, Serum 0.71 mg/dL (0.55-1.02); EST Glomerular Filtration Rate 91 mL/min (>60); Est Glom Filt Rate - Afr Amer 110 mL/min (>60); Estimated Creatinine Clearance 78.22 ml/min; Glucose 105 mg/dL (74-106); Sodium Level 145 mmol/L (136-145); Troponin-I HS 4 pg/mL (3.0-54.0)
[2022-10-16 11:22] LABS: D-Dimer Quantitative (DVT/PE) 0.29 FEU/ug/m (0.27-0.49)
[2022-10-16 12:25] VITALS: BP 135/82; PULSE 75; RESP 18; O2SAT 98
== END 2022-10-16 12:26 | disposition home or self-care (01) ==
PROVIDERS: Emergency Provider Emergency Medicine; PCP Internal Medicine; Visit Provider Emergency Medicine
DX: R07.89 Other chest pain (principal); F17.210 Nicotine dependence, cigarettes, uncomplicated; R06.02 Shortness of breath; Z90.710 Acquired absence of both cervix and uterus; Z96.659 Presence of unspecified artificial knee joint
CPT/HCPCS: 71046; 80048; 84484; 85025; 85379; 93005; 96374; 99284; A4216

== ENCOUNTER → 2023-01-22 | Outpatient (CLI) | payer BC, SELFPAY ==
--- NOTE | 2023-01-22 14:15 | MRI_ITS ---
STUDY: MRI RIGHT MIDFOOT REASON FOR EXAM: Female, 52 years old. Right foot pain, benign neoplasm connective tissue, right lower extremity. Cyst and big lump on top of foot. TECHNIQUE: Standardized fat and water weighted pulse sequences were obtained in all 3 orthogonal planes. COMPARISON: Right foot radiographs dated 08/05/2020. FINDINGS: Normal talonavicular articulation. Normal calcaneocuboid articulation. There is degenerative arthrosis at the navicular-medial cuneiform joint as well as second and third tarsometatarsal joints, with dorsal osteophyte formation and marrow stress edema. Normal first tarsometatarsal articulation. Normal Lisfranc ligament. Intact first through fifth metatarsi. There is no demonstrated fracture of the metatarsal bones. Normal tibialis anterior tendon. Normal extensor hallucis longus tendon. Normal extensor digitorum longus tendons. Normal peroneus longus tendon and distal insertion. Normal peroneus brevis tendon and distal insertion. Normal intrinsic muscles of the mid and forefoot region. Normal extensor digitorum brevis muscle. There is no discrete soft tissue mass. MRI/Lower Ext/No Jt/w/o IMPRESSION: Degenerative arthrosis at the navicular-medial cuneiform joint as well as second and third tarsometatarsal joints, with dorsal osteophyte formation and marrow stress edema. No discrete soft tissue mass. Electronically Signed: Junito Robles MD at 8:28 EST ,
== END | disposition home or self-care (01) ==
LOC: MRI 14:15
PROVIDERS: PCP Internal Medicine; Referring Provider Podiatrist; Visit Provider Podiatrist
DX: M79.671 Pain in right foot (principal)
CPT/HCPCS: 73718

== ENCOUNTER → 2023-03-12 | Outpatient (CLI) | payer BC, SELFPAY ==
--- NOTE | 2023-03-12 15:11 | ART_ITS ---
Reason For Study: PVD Procedure A bilateral lower extremity continuous wave Doppler with analog waveform analysis,segmental pressures,and ankle brachial indexes with exercise. Left Segmental Pressures Left brachial= 111mmHg. Left posterior tibial artery = 130mmHg. Left dorsalis pedis artery = 128mmHg. Left digit = 97 mmHg. Right Segmental Pressures Right brachial= 113mmHg. Right posterior tibial artery = 128mmHg. Right dorsalis pedis artery = 107mmHg. Right digit = 104 mmHg. Indices The right ankle brachial index by the posterior tibial artery is 1.13. The right ankle brachial index by the dorsalis pedis is 0.95. The right digital-brachial index is 0.92. The right ankle brachial index by the posterior tibial artery post exercise is 1.22. The left ankle brachial index by the posterior tibial artery is 1.15. The left ankle brachial index by the dorsalis pedis is 1.13. The left digital-brachial index is 0.86. The left posterior tibial artery index post exercise is 1.12. VL/Lower Ext Art Exam w/ Exercise Interpretation Summary Triphasic Doppler waveforms are noted at ankle level bilaterally. Pulse-volume recordings appear satisfactory at all levels bilaterally. Resting ankle-brachial indices are norm al bilaterally. Digital-brachial indices are normal bilaterally. The patient was ambulated for 5 minutes at 1.5 MPH and a 5% incline, following which ankle pressures augmented bilaterally, a norm al physiological response. There is no evidence of significant arterial occlusive disease in the lower ext remities bilaterally. Ordering Physician: Kaden Flower Referring Physician: Gerardo Marinelli Performed By: Chiquita Stokes RDCS/RVT
[2023-03-12 17:06] LABS: T4 Free Direct 1.19 ng/dL (0.76-1.46); Thyroid Stim Hormone (TSH) 1.13 uIU/mL (0.358-3.74)
== END | disposition home or self-care (01) ==
PROVIDERS: PCP Internal Medicine; Referring Provider Podiatrist; Visit Provider Podiatrist
DX: I73.9 Peripheral vascular disease, unspecified (principal); Z13.29 Encounter for screening for other suspected endocrine disorder
CPT/HCPCS: 36415; 84439; 84443; 93924

== ENCOUNTER → 2023-04-25 | Outpatient (CLI) | payer BC, SELFPAY ==
[2023-04-25 16:59] LABS: Vitamin D,25 Hydroxy 23.4 ng/mL
[2023-04-25 17:02] LABS: AST(SGOT) 13 U/L (15-37); Alanine Aminotransfer ALT/SGPT 17 U/L (13-56); Albumin, Serum 3.7 g/dL (3.2-5.0); Alkaline Phosphatase 85 U/L (45-117); Anion Gap 5 (5-15); BUN 7 mg/dL (7-18); BUN/Creat Ratio 12.2 RATIO (10-20); Calcium,Total 9.2 mg/dL (8.5-10.1); Chloride 107 mmol/L (98-107); Creatinine, Serum 0.58 mg/dL (0.55-1.02); EST Glomerular Filtration Rate 116 mL/min (>60); Est Glom Filt Rate - Afr Amer 140 mL/min (>60); Ferritin 128 ng/mL (8-252); Globulin 3.7 g/dL (2.2-4.2); Glucose 93 mg/dL (74-106); Iron 143 ug/dL (50-170); Iron Binding Capacity,Total 356 ug/dL (250-450); Protein, Total 7.4 g/dL (6.4-8.2); Sodium Level 139 mmol/L (136-145)
== END | disposition home or self-care (01) ==
LOC: LAB 15:47
PROVIDERS: PCP Internal Medicine; Referring Provider Nurse Practitioner; Visit Provider Nurse Practitioner
DX: Z01.818 Encounter for other preprocedural examination (principal); G25.81 Restless legs syndrome
CPT/HCPCS: 36415; 80053; 82306; 82728; 83540; 83550

== ENCOUNTER 2023-04-27 05:56 | Day surgery (SDC) | payer BC, SELFPAY ==
[2023-04-27] VITALS (11 sets, daily range): BP systolic 117–148; BP diastolic 80–89; PULSE 66–92; RESP 14–16; TEMP 36.4–37.3; O2SAT 92–100; BMI 28.0
[2023-04-27] MEDS: Lactated Ringers 1,000 ML 15 ML IV (06:38)
[2023-04-27] MEDS: Cefazolin 2 GM in 0.9% Normal Saline (100mL Bag) 100 ML IV (07:32)
--- NOTE | 2023-04-27 08:00 | RAD_ITS ---
HISTORY: PAIN. TECHNIQUE: Left foot 5 spot images. COMPARISON: None. FINDINGS: OSSEOUS STRUCTURES: Needle over the midfoot. FLUOROSCOPY TIME: 156 seconds. RADIATION DOSE: 1.22 mGy. RAD/Foot 2 Views IMPRESSION: Image guidance for left foot injection. Electronically Signed: Melissa Amor MD at 10:20 EDT ,
--- NOTE | 2023-04-27 08:00 | RAD_ITS ---
HISTORY: PAIN. TECHNIQUE: 71 Spot images. COMPARISON: None. FINDINGS: OSSEOUS STRUCTURES: Overlying instruments with cortical plate and screw fixation of the first, second, and third tarsometatarsal articulations. FLUOROSCOPY TIME: 156 seconds. RADIATION DOSE: 1.22 mGy. RAD/Foot 2 Views IMPRESSION: Image guidance for right mid foot fusion. Electronically Signed: Melissa Amor MD at 10:19 EDT ,
[2023-04-27] MEDS: Bupivacaine Mpf 0.5% 30 ML VIAL (10:20)
[2023-04-27] MEDS: dexAMETHasone 4 MG/ML Vial (10:20)
--- NOTE | 2023-04-27 10:37 | PCM.OPRPT ---
Problems Associated Problem List Diagnoses (1) Primary osteoarthritis, right ankle and foot: (2) Primary osteoarthritis, left ankle and foot: Report of Operation Date of Procedure: 04/27/23 Pre-Operative Diagnosis: 1) right first second third tarsometatarsal osteoarthritis 2) left second tarsometatarsal osteoarthritis Post-Operative Diagnosis: Same Surgery/Procedure Performed:: 1) fusion tarsometatarsal joints 1, 2, 3 right foot 2) corticosteroid injection under fluoroscopic guidance left second tarsometatarsal joint 3) application of short leg AO splint Description of Surgical Findings:: Patient preoperatively had MRI demonstrated osteoarthritis to the second and third tarsometatarsal joint primarily with some degenerative changes to the first tarsometatarsal joint as well as a hallux valgus deformity. Decision was made and come to the agreement with the patient and based on clinical and objective findings to proceed with a tarsometatarsal joint fusion 1 2 and 3 on the right foot. Patient has similar issue on the left foot and has pain. I offered her injection in the office patient refused and wished to receive injection under anesthesia today with fluoroscopic guidance. Surgeon: Kaden Flower resourcing consultant: None (SHAYY Martinez) Type of Anesthesia: General Special Medications: 0.5% marcaine plain Specimen's removed: none Drains: none Estimated Blood Loss (mL): minimal Description of Procedure: Patient was brought back the operating placed comfortably in supine position on the operating room table. Patient induced under general anesthesia. All osseous prominences offloaded prevent any compression neuropraxia's. Well-padded right thigh tourniquet applied. Patient's right lower extremity was pinned in position on blankets to prevent any interference with fluoroscopic used throughout the case and a hip bump was placed underneath the right hip to knock out any external rotation. Patient's right lower extremity scrubbed prepped draped using typical aseptic fashion. Right lower extremity was elevated exsanguinated tourniquet was inflated to 300 mmHg. A ankle block with a ring technique was performed to the right ankle using 20 cc half percent Marcaine plain. Using fluoroscopic images 2 incisional sites were were marked out 1 to the dorsal linear across the first tarsometatarsal joint and 1 dorsal linear in between the second and third tarsometatarsal joints. Dorsal medial incision was made using a 15 blade through epidermis dermis into subcutaneous tissue blunt dissection was taken down the level of deep fascia. Any bleeders were cauterized all important neurovascular structures as well as musculotendinous structures were identified and protected with blunt retraction. Deep fascial/clapped capsular incision was made with a 15 blade and periosteum was dissected off the first tarsometatarsal joint to expose the joint. Intermittent retractor was placed to distract the joint and allow for adequate joint prep. The joint was then prepped using [facility] special joint preparation osteotomes. The joint was then flushed with copious amounts normal sterile saline. And subchondral drilling was performed with a Brittni bur. This was performed on both aspects of the joint. There was a increase I am 1 2 and this was closed down using bone reduction forceps along the first and second metatarsal joint allowing for reduction of IM 1 to in slight plantarflexion of the first ray. This was confirmed objectively and clinically should be also noted the first ray is rotated so that he had better sesamoid alignment. This was confirmed with visual observation and fluoroscopic imaging. Site was present pinned in this position. Hardware was placed dorsally using 1 Lenin VariAx locking plate with the eccentric hole compression. This was placed with manufactures guidelines using 3 5 screws. Dissection was performed at the second incisional site using 15 blade through epidermis dermis into subcutaneous tissue in between the second and third tarsometatarsal joints linearly blunt dissection was taken down to level deep fascia and capsule any bleeders identified cauterized. All important neurovascular structures were identified and protected with gentle blade blunt retraction. The second and third tarsometatarsal joints were exposed with blunt dissection. The same joint prepped proper process was performed to the sites as was performed to the first tarsometatarsal joint. They were stabilized with [place] VariAx plates smaller version with 2 7 screws. The eccentric compression was used as well with these plates. Manufactures guidelines were followed. All any bone voids at this time were packed with V toss demineralized bone matrix 2.5 cc. Tourniquet was let down prior to incisional closure. Total tourniquet time was noted to be 2 hours. Deep fascial closure performed with running interlocking 3-0 Monocryl. Subcutaneous closure performed with running continuous 3-0 Monocryl. Skin closure performed with simple interrupted nylon. Incisional sites dressed with Betadine Adaptic 4 x 4's Kerlix and a well-padded AO splint with the foot held in a rectus position relative to the leg. Fluoroscopic guidance was then used to inject the second tarsometatarsal joint and confirm needle placement within the second tarsometatarsal joint after the site was adequately prepped. Aseptic technique was performed. 1 cc dexamethasone phosphate 4 Mg per mL was injected to that site directly. Patient was then transported to PACU vital signs stable vascular status intact all digits for further monitoring prior to discharge. Patient tolerated procedure and anesthesia well apparent satisfactory condition. Patient will follow-up in 1 week. No complications. No specimens taken. Adequate reduction and apposition of the first second tarsometatarsal joints after for second tarsal second third and tarsometatarsal joint fusion.
[2023-04-27] MEDS: Ketorolac 30 MG/ML Syringe IM (11:48)
[2023-04-27] MEDS: oxyCODONE 5 MG Tablet PO (12:36)
[2023-04-27] MEDS: Acetaminophen 500 MG Tablet 1000 MG PO (12:53)
== END 2023-04-27 13:55 | disposition home or self-care (01) ==
LOC: SDC 05:58 → AC 06:00
PROVIDERS: PCP Internal Medicine; Referring Provider Podiatrist; Visit Provider Podiatrist
PROC: (CPT 28740; principal; 2023-04-27 07:15)
DX: M19.072 Primary osteoarthritis, left ankle and foot (principal); M19.071 Primary osteoarthritis, right ankle and foot; R05.3 Chronic cough; F17.200 Nicotine dependence, unspecified, uncomplicated; M41.9 Scoliosis, unspecified; Z90.710 Acquired absence of both cervix and uterus; G25.81 Restless legs syndrome
CPT/HCPCS: 28740; 29515; 01480; 73620; 76000; C1713; J7120; J2405

== ENCOUNTER → 2023-06-22 | Outpatient (CLI) | payer BC, SELFPAY ==
--- NOTE | 2023-06-22 12:54 | VDLE_ITS ---
Reason For Study: BLE PAIN RIGHT LEFT GSV is normal. GSV is normal. CFV is compressible, spontaneous, phasic, CFV is compressible, spontaneous, phasic, competent and demonstrates normal competent, and demonstrates normal augmentation. augmentation. FV is compressible, spontaneous, phasic, FV is compressible, spontaneous, phasic, competent and demonstrates normal competent and demonstrates normal augmentation. augmentation. POP V is compressible, spontaneous, phasic, POP V is compressible, spontaneous, phasic, competent and demonstrates normal competent and demonstrates normal augmentation. augmentation. T/P Trunk is compressible. T/P Trunk is compressible. PTV is compressible. PTV is compressible. RT PerV is compressible. LT PerV is compressible. Procedure This is a venous duplex using B-mode, color flow and spectral Doppler. Exam performed in department. A preliminary report was called and/or faxed to Dr. Flower @ 13:45 pm @ [phone]. VL/Venous Duplex US - Drew Extrem Interpretation Summary Deep veins of the lower extremities are bilaterally patent and compressible seg mentally. There is no evidence of deep vein thrombosis on either side. Valvular competence appears in tact within the proximal deep venous systems bilaterally. The great saphenous veins appear bila terally patent and compressible segmentally. Ordering Physician: Kaden Flower Referring Physician: Gerardo Marinelli Performed By: Mahsa Abbott, RDCS, RVT
== END | disposition home or self-care (01) ==
LOC: CVS 12:48
PROVIDERS: PCP Internal Medicine; Referring Provider Podiatrist; Visit Provider Podiatrist
DX: M79.604 Pain in right leg (principal); M79.605 Pain in left leg; R22.41 Localized swelling, mass and lump, right lower limb; R22.42 Localized swelling, mass and lump, left lower limb
CPT/HCPCS: 93970

== ENCOUNTER 2023-07-12 15:00 | Outpatient (RCR) | payer BC, SELFPAY ==
--- NOTE | 2023-06-06 14:55 | HP.PTEVAL_ITS ---
Patient's Visit Information Visit Information Visit Information: ISAK YANG is a 53 year old F referred to Physical Therapy by Dr. Kaden Flower DPM with a diagnosis of R foot pain post surgery 04/27/23. Date of Evaluation: 06/06/23 Physical Therapist: Onesimo Walker DPT, OCS, CSCS Visit Plan Frequency: 2x /Week Duration: 3 Months Plan: 2x/week for 6 weeks for 1. sTM and stretching to R foot and ankle focussing on PF ROM and DF. 2. R ankle strength adn foot strength adn proprioception 3. Gait training weaning boot as able 4. Ice as needed. Pt is WBAT in boot currently and can wean to shoe as comfort allows over the next couple weaks, practice gait in therapy IE HEP: towel toe curls x 40, gastroc stretch 30 x4, seated heel toe raises 3x10 and AROM DF/PF x15 to end range with pics Subjective Subjective: Had cyst on R foot and had it removed and OA cleaned up. Had bone spur removed also. 04/27/23 was the surgery , NWB R for 4 weeks then boot for 2 weeks (5 days crutches then FW). Now FWB in boot and can wean out when doing well. Pain medial foot near toe 5/10, sometimes higher if on it alot.It swells. Using ice alot. one aspirin per day. Sleep is waking up at times with achy pain. R foot is numb since surgery. HEP: none, Not employed , off due to foot in [place] on feet all day. Basic aDLs:L dressing shower, bathroom OK. Problem is if she is on it too much. Hobbies: Outdoor work. Pain R foot medial.: Pain Intensity (Out of 10): 4 Pain Intensity Range: 7 Comment: was 8/10 with crutches NWB. Objective Objective: R foot ambulates with short R stance time and short L step in boot today, pronounced without boot getting weight off R foot quickly. Trasnfers I bed and chair. No steps today. AROM R ankle is 35 PF, -2 DF, 25 inv and 14 ev, PROM is 40 PF with pain, 2 DF with pain, 33 inv and 20 eversion. Metatarsals on R are stiff adn sensitive on the top. Big toe moves weel but painful to extend actively. AROM WFL. Incisions have healed well, no signs of [id number] redness heat or swelling. Moderate to mild scarring medial incision. strength at ankle 3+ PF 3+ DF, 3+ Inv and ev on R, 4 on L. knee adn hip arom WFL., strength at hips 3+ abd and ext and 4- flexion. reflexes 2/3 patella and achilles B Sensation is diminished in medial R foot to gross light touch. SLS is unable on R due to discomfort, L is 10 seconds. dons and doffs boot I. Balance/Special Test Scores Lower Extremity Functional Score: 28 Goals Goal 1:: Sleep without waking at night Goal Time Frame: 4-6 Weeks Goal 2:: Pain in R foot 0 at at rest and gait without deviations in community Goal Time Frame: 4-6 Weeks Goal 3:: LT: Full aROM and SLS 10 sec r without pain Goal Time Frame: 4-6 Weeks Goal 4:: Plan to return to work. Goal Time Frame: 4-6 Weeks Goal 5:: Pt feel 90% better and 1/10 at worst with normal activity Goal Time Frame: 8-12 Weeks Goal 6:: LEFS 50 Goal Time Frame: 4-6 Weeks Rehabilitation Potential Physical Therapy Diagnosis: weakness, pain limiting function R ankle and mobility Rehabilitation Potential: Good Anticipated Interventions Patient/Client Instruction: Educate patient on: Condition and Plan of Care For the Purpose of:: To decrease pain, To decrease swelling/inflammation, To increase ROM, To improve nutrient delivery to tissue, To improve muscle performance and motor function and To increase tolerance to activity/condition/position Therapeutic Exercise to Include: Strength training, Balance training, Flexibilty training, Gait and locomotor training, Passive ROM and Active ROM For the Purpose of:: To decrease pain, To decrease swelling/inflammation, To increase ROM, To improve nutrient delivery to tissue, To improve muscle performance and motor function, To improve ability of physical actions for home/community/work/leisure and To improve gait and locomotor functions Manual Therapy Techniques to Include: Scar massage, Passive ROM and Functional dry needling For the Purpose of:: To decrease pain, To increase ROM, To improve nutrient delivery to tissue and To improve muscle performance and motor function Cryotherapy (ice pack, ice massage): Yes For the Purpose of:: To decrease pain and To decrease swelling/inflammation Text: Thank you for the opportunity to evaluate your patient. For Medicare and Medicare HMO plans, please review the plan of care and approve it. It will need to be FAXED BACK to us at [phone] for Medicare purposes. For Medicare only, by signing this I certify the plan of care. Please let me know if there are questions or concerns regarding this plan of care. Physician Signature: Date:
--- NOTE | 2023-09-12 07:28 | HP.PTDCNRP_ITS ---
Patient Information Patient Information: ISAK YANG was seen in my office for initial evaluation on 06/06/23. The following Plan of Care was established for this patient: POC Established Initial Frequency: 2x /Week Initial Duration: 3 Months Anticipated Interventions Patient/Client Instruction: Educate patient on: Condition and Plan of Care For the Purpose of:: To decrease pain, To decrease swelling/inflammation, To increase ROM, To improve nutrient delivery to tissue, To improve muscle performance and motor function and To increase tolerance to activity/condition/p osition Therapeutic Exercise to Include: Strength training, Balance training, Flexibilty training, Gait and locomotor training, Passive ROM and Active ROM For the Purpose of:: To decrease pain, To decrease swelling/inflammation, To increase ROM, To improve nutrient delivery to tissue, To improve muscle performance and motor function, To improve ability of physical actions for home/community/work/leisure and To improve gait and locomotor functions Manual Therapy Techniques to Include: Scar massage, Passive ROM and Functional dry needling For the Purpose of:: To decrease pain, To increase ROM, To improve nutrient delivery to tissue and To improve muscle performance and motor function Cryotherapy (ice pack, ice massage): Yes For the Purpose of:: To decrease pain and To decrease swelling/inflammation Last Seen Last Seen: This patient was last seen in our office 07/12/23. Pertinent comments regarding their Physical therapy will appear below: Pt seen 8 visits of POC and cancelled or no showed for the last 5. At this point, it has been over 2 months and I will discontinue due to nonattendance. At this point I will be discontinuing this patient from physical therapy. I would be happy to see this patient again in the future if found appropriate by the physician. Thank you! Onesimo Walker, DPT, OCS, CSCS Balance/Gait/Functional tests Balance/Special Test Scores Lower Extremity Functional Score: 28
== END 2023-07-12 19:00 | disposition home or self-care (01) ==
LOC: PT 15:00
PROVIDERS: PCP Internal Medicine; Referring Provider Podiatrist; Visit Provider Podiatrist
DX: M79.671 Pain in right foot (principal)
CPT/HCPCS: 97014; 97110; 97116; 97140; 97161; 97530; G0283

== ENCOUNTER → 2023-09-07 | Outpatient (CLI) | payer BC, SELFPAY ==
--- NOTE | 2023-09-07 14:06 | CT_ITS ---
STUDY: CT RIGHT FOOT REASON FOR EXAM: Female, 53 years old. Osteoarthritis, surgery in April, still having pain. RADIATION DOSAGE (If Supplied By Facility): CTDIvol = ( 15.35 ) mGy, DLP = ( 365.28 ) mGycm TECHNIQUE: Thin section transaxial imaging of the left foot was obtained, with sagittal and coronal reconstructed images. Individualized dose optimization techniques were used for this CT. COMPARISON: Intraoperative left foot spot films dated 04/27/2023. 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 Intact talus, calcaneus, and tarsal bones. There is a small plantar calcaneal spur. Normal visualized tibiotalar, subtalar, talonavicular, and calcaneocuboid articulations. There is fusion hardware with dorsal plates and multiple fixation screws in the cuneiforms and first through third metatarsals. Intact metatarsi. Normal metatarsophalangeal joint of the great toe. Normal tibial and fibular sesamoid bones. Normal interphalangeal joint of the great toe. Normal phalanges of the great toe. Normal second through fifth metatarsophalangeal joints. Normal interphalangeal joints and phalanges of the lesser toes. The soft tissue structures are unremarkable. There is no demonstrated fracture. CT/Extremity Lower without Contra IMPRESSION: Mild tibiotalar arthrosis. Small plantar calcaneal spur. Fusion hardware with dorsal plates and multiple fixation screws in the cuneiforms and first through third metatarsals. Electronically Signed: Junito Robles MD at 14:47 EDT ,
== END | disposition home or self-care (01) ==
LOC: CT 14:00
PROVIDERS: PCP Internal Medicine; Referring Provider Podiatrist; Visit Provider Podiatrist
DX: M19.071 Primary osteoarthritis, right ankle and foot (principal)
CPT/HCPCS: 73700

== ENCOUNTER → 2023-11-13 | Outpatient (CLI) | payer BC, MEDICAID, SELFPAY ==
--- NOTE | 2023-11-13 09:29 | NM_ITS ---
INDICATION: PAIN IN RIGHT FOOT, SURGERY WITH PLATES AND SCREWS APRIL 2023. EXAMINATION: NUCLEAR MEDICINE BONE SCAN - Nuclear medicine three-phase bone scan of the feet. TECHNIQUE: NM Bone 3 phase bone scan of the feet was obtained. Radiopharmaceutical Type, Dose and Route: 26.5 mCi of Tc99m MDP, IV administration. Imaging: Mediastinal images, blood pool and delayed images were obtained. COMPARISON/CORRELATED STUDIES: CT scan of the foot of 09/07/2023. FINDINGS: The flow study demonstrates increased flow to the region of the mid foot. The second phase blood pool images demonstrate persistent focal area of increased uptake in the midfoot region corresponding to the blood pool images. The delayed third phase images demonstrate again persistent increased uptake in the mid foot region corresponding to the region of surgery seen on the CT scan. NM/Bone Scan Limited Area IMPRESSION: Increased uptake on all 3 phases in the region of the right midfoot corresponding to the surgical region could represent postoperative changes or osteomyelitis. Electronically Signed: Dwaine Arvizu MD at 15:04 EDT ,
== END | disposition home or self-care (01) ==
PROVIDERS: PCP Internal Medicine; Referring Provider Podiatrist; Visit Provider Podiatrist
DX: M79.671 Pain in right foot (principal)
CPT/HCPCS: 78300; A9503

== ENCOUNTER → 2023-11-15 | Outpatient (CLI) | payer MEDICAID, SELFPAY ==
[2023-11-15 16:39] LABS: Absolute Lymphocyte Count 1.64 X10^3/uL (0.83-4.51); Absolute Neutrophil Count 3.9 X10^3/uL (2.0-7.7); Basophil# 0.04 X10^3/uL; Basophil% 0.6 % (0-1); Eosinophil# 0.09 X10^3/uL; Eosinophils% 1.4 % (0-5); Hematocrit 40.7 % (37-47); Hemoglobin 13.1 g/dL (12.0-15.0); Lymphocyte # 1.64 X10^3/ul (0.83-4.51); Lymphocyte % 25.4 % (19-41); Mean Corp Hgb Conc 32.2 g/dL (32-36); Mean Corpuscular Hgb 30.8 pg (27.0-32.0); Mean Corpuscular Volume 95.5 fL (81-99); Monocyte# 0.73 X10^3/uL; Monocyte% 11.3 % (0-10); NRBC Flagged by Analyzer 0 % (0-5); Neutrophil # 3.93 X10^3/uL (2.7-7.7); Platelet Count 273 K/mm3 (150-450); RBC Distribution Width CV 12.5 % (11.6-14.6); RBC Distribution Width SD 43.9 fl (35.1-43.9); Red Blood Count 4.26 M/mm3 (4.2-5.4); White Blood Count 6.5 K/mm3 (4.4-11.0)
[2023-11-15 17:08] LABS: ALB/GLOB Ratio 0.9 RATIO (0.9-2.4); AST(SGOT) 11 U/L (15-37); Alanine Aminotransfer ALT/SGPT 10 U/L (13-56); Albumin, Serum 3.5 g/dL (3.2-5.0); Alkaline Phosphatase 89 U/L (45-117); Anion Gap 4 (5-15); BUN 8 mg/dL (7-18); BUN/Creat Ratio 11.5 RATIO (10-20); Calcium,Total 9.3 mg/dL (8.5-10.1); Chloride 103 mmol/L (98-107); Creatinine, Serum 0.69 mg/dL (0.55-1.02); EST Glomerular Filtration Rate 93 mL/min (>60); Est Glom Filt Rate - Afr Amer 113 mL/min (>60); Glucose 110 mg/dL (74-106); Potassium 3.5 mmol/L (3.5-5.1); Protein, Total 7.5 g/dL (6.4-8.2); Sodium Level 136 mmol/L (136-145); T4 Free Direct 1.06 ng/dL (0.76-1.46); Thyroid Stim Hormone (TSH) 0.689 uIU/mL (0.358-3.740)
== END | disposition home or self-care (01) ==
LOC: BIMLAB 16:04
PROVIDERS: PCP Internal Medicine; Referring Provider Internal Medicine; Visit Provider Internal Medicine
DX: F41.9 Anxiety disorder, unspecified (principal); F32.A Depression, unspecified
CPT/HCPCS: 36415; 80053; 84439; 84443; 85025

== ENCOUNTER → 2023-11-21 | Outpatient (CLI) | payer MEDICAID, SELFPAY ==
--- NOTE | 2023-11-21 14:19 | BI_ITS ---
MAMMOGRAPHY - BILATERAL SCREENING 3-D TOMOSYNTHESIS REASON FOR EXAM: Female, 53 years old. Breast Cancer Screening PERTINENT HISTORY: No significant family history. TECHNIQUE: 2-D mammograms and 3-D Tomosynthesis of the breast (s) were performed. CAD was performed. COMPARISON: None. FINDINGS: The breast composition is composed of scattered fibroglandular density. Scattered benign calcifications are seen. No dense spiculated masses or suspicious microcalcifications are identified. No architectural distortion is identified. There is no skin thickening or retraction. There has been no significant change since the prior study. BI/SCRN MAMM (CAD)W/VIDHYA BILAT IMPRESSION: No mammographic signs of malignancy. Routine yearly mammograms recommended. ASSESSMENT CATEGORY: BIRADS Category 1: Negative. A letter regarding these results will be sent to the patient by the facility within 30 days. FOLLOW UP RECOMMENDATION: Yearly follow up mammogram recommended. (A) Approximately 10% of breast cancers are not detected by mammography. A normal mammogram should not delay biopsy of a clinically suspicious abnormality. Electronically Signed: Collin Leach MD at 14:13 EDT ,
== END | disposition home or self-care (01) ==
LOC: OPBI 14:19
PROVIDERS: PCP Internal Medicine; Referring Provider Internal Medicine; Visit Provider Internal Medicine
DX: Z12.31 Encounter for screening mammogram for malignant neoplasm of breast (principal)
CPT/HCPCS: 77063; 77067

== ENCOUNTER → 2024-01-11 | Outpatient (CLI) | payer BC, SELFPAY ==
--- NOTE | 2024-01-11 18:03 | CT_ITS ---
STUDY: CT RIGHT FOOT REASON FOR EXAM: Female, 53 years old. RIGHT FOOT PAIN RADIATION DOSAGE (If Supplied By Facility): CTDIvol = ( 15.35 ) mGy, DLP = ( 378.01 ) mGycm TECHNIQUE: Thin section transaxial imaging of the right foot was obtained, with sagittal and coronal reconstructed images. Individualized dose optimization techniques were used for this CT. COMPARISON: None. FINDINGS: Intact talus, calcaneus, and tarsal bones. There is a small plantar calcaneal spur. Normal visualized tibiotalar, subtalar, talonavicular, and calcaneocuboid articulations. 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 There is dorsal fusion hardware across the first through third tarsometatarsal joints. Normal metatarsophalangeal joint of the great toe. Normal tibial and fibular sesamoid bones. Normal interphalangeal joint of the great toe. Normal phalanges of the great toe. Normal second through fifth metatarsophalangeal joints. Normal interphalangeal joints and phalanges of the lesser toes. The soft tissue structures are unremarkable. There is no demonstrated acute fracture. 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 Dorsal fusion hardware across the first through third tarsometatarsal joints. Small plantar calcaneal spur. Electronically Signed: Junito Robles MD at 16:02 EST ,
== END | disposition home or self-care (01) ==
LOC: CT 18:01
PROVIDERS: PCP Internal Medicine; Referring Provider Podiatrist; Visit Provider Podiatrist
DX: M79.671 Pain in right foot (principal)
CPT/HCPCS: 73700

== ENCOUNTER → 2024-05-27 | Outpatient (CLI) | payer MEDICAID, SELFPAY ==
--- NOTE | 2024-05-27 11:30 | ART_ITS ---
Reason For Study Reason For Study: PVD Procedure A bilateral lower extremity continuous wave Doppler with analog waveform analysis,segmental pressures,and ankle brachial indexes without exercise. Left Segmental Pressures Left brachial= 127mmHg. Left posterior tibial artery = 139mmHg. Left dorsalis pedis artery = 140mmHg. Left digit = 87 mmHg. The left dorsalis pedis waveforms are triphasic. The left posterior tibial artery waveforms are triphasic. Right Segmental Pressures Right brachial= 122mmHg. Right posterior tibial artery = 128mmHg. Right dorsalis pedis artery = 126mmHg. Right digit = 96 mmHg. The right dorsalis pedis waveforms are triphasic. The right posterior tibial artery waveforms are triphasic. Indices The right ankle brachial index by the dorsalis pedis is 0.99. The right ankle brachial index by the posterior tibial artery is 1.01. The right digital-brachial index is 0.76. The left ankle brachial index by the dorsalis pedis is 1.10. The left ankle brachial index by the posterior tibial artery is 1.09. The left digital-brachial index is 0.69. VL/Lower Ext Art Exam w/o Exercis Interpretation Summary Triphasic Doppler waveforms are noted at ankle level bilaterally. Pulse-volume recordings appear satisfactory at all levels bilaterally. Resting ankle-brachial indices are normal bilaterally. The right digital-brachial index is normal. The left digital-brachial index is mildly diminished. Arterial flow is normal at ankle level bilaterally, and at digital level on the right. There is evidence of mild arterial occlusive disease at digital level on the left. Ordering Physician: Kaden Flower Referring Physician: Gerardo Marinelli Performed By: Tiff Carrillo RVT
[2024-05-27 13:48] LABS: Hematocrit 36.8 % (37-47); Hemoglobin 12.1 g/dL (12.0-15.0); Mean Corp Hgb Conc 32.9 g/dL (32-36); Mean Corpuscular Hgb 32.2 pg (27.0-32.0); Mean Corpuscular Volume 97.9 fL (81-99); Mean Platelet Vol. 9.8 fl (6.2-12.0); Platelet Count 251 K/mm3 (150-450); RBC Distribution Width CV 13.4 % (11.6-14.6); RBC Distribution Width SD 48.3 fl (35.1-43.9); Red Blood Count 3.76 M/mm3 (4.2-5.4); White Blood Count 6.5 K/mm3 (4.4-11.0)
[2024-05-27 15:19] LABS: ALB/GLOB Ratio 1.4 RATIO (0.9-2.4); AST(SGOT) 25 U/L (<=31); Alanine Aminotransfer ALT/SGPT 16 U/L (<=34); Alkaline Phosphatase 102 U/L (35-104); Anion Gap 10 (5-15); BUN 14 mg/dL (4-19); BUN/Creat Ratio 15.8 RATIO (10-20); Calcium,Total 9.1 mg/dL (7.6-11.0); Carbon Dioxide 27.1 mmol/L (21.0-32.0); Chloride 103 mmol/L (98-108); Cholesterol 200 mg/dL (<=200); Creatinine, Serum 0.87 mg/dL (0.70-1.20); EST Glomerular Filtration Rate 78 (>60); Glucose 82 mg/dL (70-99); High Density Lipoprotein 62 mg/dL; Low Density Lipoprotein Calc. 118 mg/dL; Potassium 4.5 mmol/L (3.3-5.1); Sodium Level 140 mmol/L (133-145); Total Bilirubin 0.27 mg/dL (0.00-1.30); Triglycerides 100 mg/dL; Very Low Density Lipoprotein 20 mg/dL (5-40); Vitamin D,25 Hydroxy 14.3 ng/mL (30-100); cholesterol:hdl ratio screen 3.21
== END | disposition home or self-care (01) ==
LOC: CVS 11:25
PROVIDERS: Physician Assistant; PCP Internal Medicine; Referring Provider Podiatrist; Visit Provider Podiatrist
DX: Z00.00 Encounter for general adult medical examination without abnormal findings (principal); I73.9 Peripheral vascular disease, unspecified; R53.83 Other fatigue; R07.9 Chest pain, unspecified
CPT/HCPCS: 36415; 80053; 80061; 82306; 84443; 85027; 93923

== ENCOUNTER → 2024-09-25 | Outpatient (CLI) | payer MEDICAID, SELFPAY | END | disposition home or self-care (01) | LOC: RAD 16:44 | PROVIDERS: PCP Internal Medicine; Referring Provider Anesthesiology Pain Medicine; Visit Provider Anesthesiology Pain Medicine | DX: T79.4XXA Traumatic shock, initial encounter (principal) ==

== ENCOUNTER 2024-11-30 12:41 | Emergency (ER) | payer MEDICAID, SELFPAY ==
[2024-11-30 12:42] VITALS: BP 143/93; PULSE 96; RESP 16; TEMP 37.1; O2SAT 98; BMI 31.4
--- OUTSIDE RECORDS SUMMARY | 2024-11-30 13:04 | XMS RPT_ITS | CCD ---
Author Organization [facility] Care Team Providers Care Marketing And Communications Officer Name Role Phone Shannon Hector PA-C Unavailable [phone] Anthony Maier MD Unavailable Angela Salmeron LPN Unavailable Unavailab Anthony Frazier MD Unavailable [phone] Shannon Hector PA-C Unavailable Unavailable Primary Care Provider Unavailmiriam e Unavailable Primary Care Provider UnavailLaina Butt MD Primary Care Provider [phone] YVES EFEWONGBE B Primary Care Unavailable CATARINO HAAS Referring Unavailable OLEGHE, EFEWONGBE B Primary Care Unavailable CATARINO HAAS Referring Unavailable ALI, NOAMAN Referring Unavailable ALI, NOAMAN Admitting Unavailable ALI, NOAMAN Attending Unavailable ALI, NOAMAN Referring Unavailable ALI, NOAMAN Attending Unavailable SURINDER HASSAN Referring Unavailabl e CATARINO HAAS Attending Unavailable OLEGHE, EFEWONGBE B Primary Care Unavailable OLEGHE, EFEWONGBE B Primary Care Unavailable CATARINO HAAS Attending Unavailable OLEGHE, EFEWONGBE B Primary Care Unavailable ALI, NOAMAN Attending Unavailable ALI, NOAMAN Referring Unavailable Dr. Laina Marinelli Primary Care Provider [phone] Dr. Laina Marinelli Attending Provider [phone] Dr. Laina Marinelli Referring Provider [phone] Dr. Laina Marinelli Primary Care Provider [phone] Dr. Laina Marinelli Referring Provider [phone] JUSTA Jett Attending Provider [phone] REFERRING, PHY WO ID Primary Care Physician Unav ailable REFERRING, PHY WO ID Attending Unavailable REFERRING, PHY WO ID Primary Care Unavailable Willard Wilkinson Attending Provider Yves CAPONE, Dr. Carrillo Primary Care Provider Yves CAPONE, Dr. Carrillo Referring Provider Mundo LUCAS, Dr. Alfonso Attending Provider Mundo LUCAS, Dr. Alfonso Referring Provider Willard Wilkinson Other Provider Tami CAPONE, Dr. Levi Crane Attending Provider Yves CAPONE, Dr. Carrillo Primary Care Provider Yves CAPONE, Dr. Carrillo Referring Provider [phone] Willard Wilkinson Attending Provider Odette CAPONE, Dr. Morales Attending Provider Odette CAPONE, Dr. Morales Referring Provider Kt LUCAS, Dr. Fischer Other Provider Oleghe, Efewongbe Referring Unavailable Willard Wilkinson Attending Unavailable Oleghe, Efewongbe Primary Care Unavailable Kaden Flower Referring Unavailable Kaden Flower Attending Unavailable Oleghe, Efewongbe Primary Care Unavailable Oleghe, Efewongbe Primary Care Unavailable Willard Wilkinson Referring Unavailable Willard Wilkinson Attending Unavailable Oleghe, Efewongbe Primary Care Unavailable Amado Meraz Attending Unavailable Oleghe, Efewongbe Primary Care Unavailable Amado Meraz Referring Unavailable Amado Meraz Attending Unavailable Kaden Flower Referring Unavailable Kaden Flower Attending Unavailable Willard Wilkinson Consulting Unavailable Oleghe, Efewongbe Primary Care Unavailable Oleghe, Efewongbe Referring Unavailable Oleghe, Efewongbe Attending Unavailable Oleghe, Efewongbe Primary Care Unavailable Oleghe, Efewongbe Referring Unavailable Oleghe, Efewongbe Primary Care Unavailable Willard Wilkinson Attending Unavailable Oleghe, Efewongbe Referring Unavailable Oleghe, Efewongbe Primary Care Unavailable Willard Wilkinson Attending Unavailable Oleghe, Efewongbe Referring Unavailable Willard Wilkinson Attending Unavailable Oleghe, Efewongbe Primary Care Unavailable Oleghe, Efewongbe Primary Care Unavailable Andrew Pino Referring Unavailable Andrew Pino Attending Unavailable Amado Meraz Unavailable Kaden Flower Referring Unavailable Kaden Flower Attending Unavailable Oleghe, Efewongbe Primary Care Unavailable Oleghe, Efewongbe Referring Unavailable Oleghe, Efewongbe Attending Unavailable Oleghe, Efewongbe Primary Care Unavailable Oleghe, Efewongbe Referring Unavailable Oleghe, Efewongbe Attending Unavailable Oleghe, Efewongbe Primary Care Unavailable Allergies Allergy Classification Reported Allergen(s) Allergy Type Date of Onset Reaction(s) Facility (16 sources) traMADol; Translations: [TRAMADOL] Drug Allergy 11-02-2021 Unknown [facility] Comment on above: SEIZURES (1 source) traMADol Drug Allergy 07-04-2024 [facility] Repository Medications Current Medications Medication Drug Class(es) Dates Sig (Normalized) Sig (Original) acetaminophen 500 mg oral capsule (4 sources) Start: 04-27-2023 take 1 capsule by mouth every six hours as needed for pain Acetaminophen 500 mg capsule Active 500 mg PO EVERY 6 HOURS as needed for pain 30 0 April 27, 2023 12:00am 200 actuat albuterol 0.09 mg/actuat dry powder inhaler (20 sources) beta2-Adrenergic Agonist Start: 2019 Albuterol Sulfate 90 mcg/actuation aerosol powdr breath activated Active 2 NMA INHALATION EVERY 6 HOURS as needed for shortness of breath or wheezing 1 2019 12:00am Start: 2019 Albuterol Sulf ate Active 2 INH INHALATION EVERY 6 HOURS 2019 12:00am Start: 05-06-2019 End: 2019 Albuterol Sulfate 90 mcg/act uation HFA aerosol inhaler Discontinued 2 NMA INHALATION EVERY 6 HOURS as needed for shortness of breath or wheezing 8.5 2 May 06, 2019 12:00am 2019 4:37pm Start: 05-06-2019 End: 2019 take 1 puff(s) by inhalation every six hours Albuterol Sulfate Discontinued 2 PUFF INHALATION EVERY 6 HOURS 8.5 May 06, 2019 12:00am 2019 4:37pm Start: 02-16-2017 End: 04-28-2019 Albuterol Sulfate 1 INHALER inhaler Discontinued 1 - 2 NMA INHALATION EVERY 4 HOURS NEEDED as needed for Wheezing 1 0 February 16, 2017 1:00am April 28, 2019 10:29am Start: 02-16-2017 End: 04-28-2019 take 1 puff(s) by inhalation every four hours as needed Albuterol Sulfate Discontinued 1 - 2 PUFF INHALATION EVERY 4 HOURS NEEDED 1 February 16, 2017 1:00am April 28, 2019 10:29am take 2 puff(s) by in halation every six hours as needed for wheezing albuterol sulfate 90 mcg/actuation breath activated powder inhaler Inhale 2 Puffs as instructed every 6 hours as needed for wheezing/shortness of breath. 0 Active Comment on above: Inhale 2 Puffs as in structed every 6 hours as needed for wheezing/shortness of breath. ascorbic acid 500 mg oral capsule (14 sources) Vitamin C Start: 0 take 1 capsule by mouth once daily Ascorbic Acid (Vitamin C) 500 mg capsule Active 500 mg PO DAILY April 28, 2019 12:00am take 1 capsule by mouth once ankita ly Ascorbic Acid 500 mg cpER Take 1 capsule by mouth once daily. 0 Active Comment on above: [facility] baclofen 10 mg oral tablet (1 source) gamma-Aminobutyric Acid-ergic Agonist Start: 10-19-2022 take 10 mg by mouth twice daily Baclofen Active 10 MG PO TWICE A DAY 60 October 18, 2022 11:00pm Budesonide-Formoter ol (20 sources) Corticosteroid, beta2-Adrenergic Agonist Start: 11-02-2021 Budesonide-Formoterol (Symbicort) 80-4.5 mcg/actuation HFA aerosol inhaler Active 2 NMA INHALATION TWICE A DAY as needed for Bronchospasm November 02, 2021 10:08am Start: 11-02-2021 take 1 puff(s) by in halation twice daily Budesonide-Formoterol (Symbicort) 80-4.5 mcg/actuation HFA aerosol inhaler Active 2 PUFF INHALATION TWICE A DAY November 02, 2021 9:08am Start: 11-02-2021 take 1 puff(s) by in halation twice daily Budesonide-Formoterol (Symbicort) 80-4.5 mcg/actuation HFA aerosol inhaler Active 2 PUFF INHALATION TWICE A DAY November 02, 2021 10:08am Start: 06-04-2019 End: 11-02-2021 Budesonide-Formoterol (Symbi rashawn) 80-4.5 mcg/actuation HFA aerosol inhaler Discontinued 2 NMA INHALATION TWICE A DAY 10.2 2 July 10, 2019 4:31pm November 02, 2021 10:08am Start: 06-04-2019 End: 11-02-2021 take 1 puff(s) by inhalation twice daily Budesonide-Formoterol (Symbicort) 80-4.5 mcg/actuation HFA aerosol inhaler Discontinued 2 PUFF INHALATION TWICE A DAY 10.2 July 10, 2019 4:31pm November 02, 2021 10:08am take 2 puff(s) by in halation twice daily budesonide-formoterol (SYMBICORT) 80-4.5 mcg/actuation inhaler Inhale 2 Puffs as instructed twice daily. 0 Active Comment on above: Inhale 2 Puffs as in structed twice daily. busPIRone hydrochloride 7.5 mg oral tablet (4 sources) Start: End: take 1 tablet by mouth twice daily Buspirone 7.5 mg tablet Active 7.5 mg PO TWICE A DAY July 04, 2024 10:20am celecoxib 200 mg oral capsule (14 sources) Nonsteroidal Anti-inflammatory Drug Start: 021 take 1 capsule by mouth once daily Celecoxib 200 mg capsule Active 200 mg PO DAILY June 11, 2020 12:00am Comment on above: Take 200 mg by mouth once daily. cholecalciferol 1.25 mg oral capsule (2 sources) Vitamin D Start: 025 take 1 capsule by mouth every week Cholecalciferol (Vitamin D3) 1,250 mcg (50,000 unit) capsule Active 1250 ug PO EVERY WEEK 12 May 28, 2024 12:00am DULoxetine 20 mg delayed release oral capsule (8 sources) Serotonin and Norepinephrine Reuptake Inhibitor Start: 025 take 1 capsule by mouth twice daily Duloxetine (Cymbalta) 20 mg capsule,delayed release(DR/EC) Active 20 mg PO TWICE A DAY 180 July 04, 2024 12:00am Start: 04-18-2024 take 1 capsule by mo uth twice daily Duloxetine (Cymbalta) 30 mg capsule,delayed release(DR/EC) Active 30 mg PO TWICE A DAY 60 April 18, 2024 12:00am Start: 11-15-2023 End: 04-18-2024 take 1 capsule by mouth twice daily Duloxetine 20 mg capsule,delayed release(DR/EC) Discontinued 20 mg PO TWICE A DAY 60 February 04, 2024 11:22am April 18, 2024 1:42pm ondansetron 4 mg disintegrating oral tablet (4 sources) Serotonin-3 Receptor Antagonist Start: 04-27-2023 take 1 tablet by mouth every eight hours as needed for nausea and vomiting Ondansetron 4 mg tablet,disintegrating Active 4 mg PO Q8H as needed for nausea and vomiting 12 0 April 27, 2023 10:37am pregabalin 75 mg oral capsule (20 sources) Start: 04-28-2019 End: 05-06-2019 take 1 capsule by mouth twice daily Pregabalin 75 mg capsule Active 75 mg PO TWICE A DAY May 06, 2019 1:28pm Start: 04-28-2019 End: 05-06-2019 Pregabalin 75 mg capsule Dis continued PO April 28, 2019 12:00am May 06, 2019 1:28pm Comment on above: Take 75 mg by mouth twice daily. tiZANidine 4 mg oral tablet (10 sources) Central alpha-2 Adrenergic Agonist Start: 04-18-2023 take 1 tablet by mouth at bedtime as needed Tizanidine 4 mg tablet Active 4 mg PO AT BEDTIME as needed for muscle spasticity April 18, 2023 12:00am take 1 tablet by [facility] every twenty-four hours as needed tiZANidine (ZANAFLEX) 4 mg tablet Take 1 tablet by mouth at bedtime as needed. 0 Active Comment on above: Take 1 tablet by royal [facility] at bedtime as needed. Completed/Discontinued Medications Medication Drug Class(es) Dates Sig (Normalized) Sig (Original) acetaminophen 65 mg/ml / dextromethorphan hydrobromide 2 mg/ml / diphenhydrAMINE hydrochloride 2.5 mg/ml oral solution (7 sources) Histamine-1 Receptor Antagonist, Uncompetitive V-fwcjdf-P-aspartat e Receptor Antagonist, Sigma-1 Agonist Start: 02-16-2017 End: 04-28-2019 take 1 mL by mouth twice daily as needed for cough Diphenhydramine-D m-Acetamin 118 ML liquid Discontinued 5 mL PO TWICE DAILY NEEDED as needed for Cough 1 0 February 16, 2017 12:38pm April 28, 2019 10:29am Start: 02-16-2017 End: 04-28-2019 take 1 mL by mouth twice daily as needed Clzachcgrgwhtfy-Ql-Pzhqsmre Discontinued 5 ML PO TWICE DAILY NEEDED 1 February 16, 2017 12:38pm April 28, 2019 10:29am acetaminophen 325 mg / HYDROcodone bitartrate 7.5 mg oral tablet (20 sources) Opioid Agonist Start: 03-04-2022 take 1 tablet by mouth every six hours as needed HYDROcodone-Acetaminophen (NORCO) 7.5-325 mg per tablet Take 1 tablet by mouth every 6 hours as needed. 0 03/04/2022 Active Start: 02-16-2017 End: 02-21-2022 Hydrocodone-Acetaminophen 1 TABLET tablet Active 1 {tbl} PO 4 TIMES DAILY as needed for pain February 16, 2017 1:00am Start: 02-16-2017 take 1 tablet by royal [facility] four times daily Hydrocodone-Acetaminophen Active 1 TABLE T PO 4 TIMES DAILY February 16, 2017 1:00am Start: 09-29-2016 NORCO TABS as directed HYDROCODONE-ACETAMINOPHEN TABS [id number] Angela Salmeron LPN Start: 09-29-2016 NORCO TABS as directed HYDROCODONE-ACETAMINOPHEN TABS [id number] Angela Salmeron LPN Comment on above: Take 1 tablet by royal [facility] four times daily as needed. Take 1 tablet by royal th every 6 hours as needed. amoxicillin 875 mg / clavulanate 125 mg oral tablet (14 sources) Penicillin-class Antibacterial Start: 05-06-2019 End: 05-11-2019 Amoxicillin-Pot Clavulanate 875-125 mg tablet Discontinued 1 {tbl} PO TWICE A DAY 10 5 0 May 06, 2019 12:00am May 10, 2019 12:00am May 11, 2019 12:01am Start: 05-06-2019 End: 05-11-2019 take 1 tablet by mouth twice daily Amoxicillin-Pot Clavulanate Discontinued 1 TABLET PO TWICE A DAY 10 5 May 06, 2019 12:00am May 11, 2019 12:01am Start: 04-28-2019 End: 05-06-2019 Amoxicillin-Pot Clavulanate (Augmentin) 875-125 mg tablet Discontinued 1 {tbl} PO Q12H 20 10 0 April 28, 2019 12:00am 2019 12:00am May 06, 2019 2:05pm Acute sinusitis, unspecified ciprofloxacin 500 mg oral tablet (15 sources) Quinolone Antimicrobial Start: 10-04-2016 CIPRO 500 MG TABS 1 tab BID CIPROFLOXACIN HCL [id number] Laina Marinelli MD codeine phosphate 2 mg/ml / guaiFENesin 20 mg/ml oral solution (7 sources) Opioid Agonist Start: 12-17-2019 End: 03-01-2020 take 1 mL by mouth every six hours as needed for cough Codeine-Guaifenesin (Maxi-Tuss Ac) 10-100 mg/5 mL liquid Discontinued 5 mL PO EVERY 6 HOURS as needed for cough 120 0 December 17, 2019 1:00am March 01, 2020 10:34am COVID-19 Start: 12-17-2019 End: 03-01-2020 take 1 mL by mouth every six hours before mealtime Codeine-Guaifenesin (Maxi-Tuss Ac) 10-100 mg/5 mL liquid Discontinued 5 ML PO EVERY 6 HOURS 120 December 17, 2019 1:00am March 01, 2020 10:34am docusate sodium 100 mg oral capsule (4 sources) Start: 04-27-2023 End: 04-18-2024 take 1 capsule by mouth twice daily Docusate Sodium 100 mg capsule Discontinued 100 mg PO TWICE A DAY 14 0 April 27, 2023 12:00am April 18, 2024 12:35pm doxycycline monohydrate 100 mg oral capsule (7 sources) Tetracycline -class Drug Start: 02-16-2017 End: 04-28-2019 take 1 capsule by mouth twice daily Doxycycline Monohydrate 100 MG capsule Discontinued 100 mg PO TWICE A DAY 20 0 February 16, 2017 1:00am April 28, 2019 10:29am Echinacea (7 sources) Start: 02-16-2017 End: 04-28-2019 take 1 capsule by mouth once daily Echinacea 400 MG capsule Discontinued 1200 mg PO DAILY February 16, 2017 1:00am April 28, 2019 10:29am Start: 02-16-2017 End: 04-28-2019 take 1200 mg by mouth once daily Echinacea Discontinued 1200 MG PO DAILY February 16, 2017 12:00am April 28, 2019 9:29am Start: 02-16-2017 End: 04-28-2019 take 1200 mg by mouth once daily Echinacea Discontinued 1200 MG PO DAILY February 16, 2017 1:00am April 28, 2019 10:29am 0.4 ml enoxaparin sodium 100 mg/ml prefilled syringe (4 sources) Low Molecular Weight Heparin Start: 04-27-2023 End: 04-18-2024 Enoxaparin (Lovenox) 40 mg/0.4 mL syringe Discontinued 40 mg SC DAILY 12 0 April 27, 2023 12:00am April 18, 2024 12:35pm fluticasone propionate 0.05 mg/actuat metered dose nasal spray (14 sources) Corticosteroid Start: 06-04-2019 End: 10-16-2022 take 2 spray(s) nasal route once daily Fluticasone Propionate 50 mcg/actuation spray,suspension Discontinued 0 .ROUTE .COMPLEX 16 1 June 04, 2019 11:22am October 16, 2022 9:43am USE 2 SPRAYS IN EACH NOSTRIL ONCE DAILY Start: 05-13-2019 End: 06-04-2019 take 50 ug nasal route once daily Fluticasone Propionate (Flonase Allergy Relief) 50 mcg/actuation spray,suspension Discontinued 2 NMA INTRANASAL DAILY 15.8 1 May 13, 2019 12:00am June 04, 2019 11:22am administer into each nostril Start: 05-13-2019 End: 06-04-2019 take 1 spray(s) nasal route once daily Fluticasone Propionate (Flonase Allergy Relief) 50 mcg/actuation spray,suspension Discontinued 2 SPRAY INTRANASAL DAILY 15.8 May 13, 2019 12:00am June 04, 2019 11:22am administer into each nostril fluticasone propionate (FLOV ENT HFA) 50 mcg/actuation inhaler (7 sources) fluticasone prop ionate (FLOVENT HFA) 50 mcg/actuation inhaler Inhale 2 Puffs as instructed as needed. 0 Active take 2 puff(s) by inhalation twi ce daily fluticasone propionate (FLOVENT HFA) 50 mcg/actuation inhaler Inhale 2 Puffs as instructed twice daily. 0 Active Comment on above: Inhale 2 Puffs as in structed twice daily. Inhale 2 Puffs as in structed as needed. gabapentin enacarbil 300 mg extended release oral tablet (20 sources) Anti-epileptic Agent Start: 10-05-2016 End: 04-28-2019 Gabapentin Enacarbil 300 MG tablet extended release Discontinued 500 mg PO AT BEDTIME October 05, 2016 12:00am April 28, 2019 10:29am Start: 10-05-2016 End: 04-28-2019 take 500 mg by mouth at bedtime Gabapentin Enacarbil Discontinued 500 MG PO AT BEDTIME October 05, 2016 12:00am April 28, 2019 10:29am Start: 10-04-2016 take 1 tablet by royal th once daily HORIZANT 300 MG CR-TABS One tablet by mouth daily GABAPENTIN ENACARBIL [id number] Chelsey Lewis Start: 10-04-2016 take 1 tablet by royal th once daily HORIZANT 300 MG CR-TABS One tablet by mouth daily GABAPENTIN ENACARBIL [id number] Chelsey Lewis Start: 09-29-2016 HORIZANT CR-TA BS as directed GABAPENTIN ENACARBIL CR-TABS [id number] Angela Salmeron LPN Start: 09-29-2016 End: 10-04-2016 HORIZANT CR-TABS as directed GABAPENTIN ENACARBIL CR-TABS [id number] Chelsey Lewis Start: 09-29-2016 End: 10-04-2016 HORIZANT CR-TABS as directed GABAPENTIN ENACARBIL CR-TABS [id number] Chelsey Lewis Start: 09-29-2016 HORIZANT CR-TA BS as directed GABAPENTIN ENACARBIL CR-TABS [id number] Angela Salmeron LPN iv contrast (will be provided with radiology test) (2 sources) Start: 03-15-2022 iv contrast (w ill be provided with radiology test) Indications: S/P hernia repair CT ABD/PEL -Inject, intravenously, once for 1 dose.No IV access, insert saline lock prior to the beginning of sedation, infusion, injection of imaging exam. Discontinue saline lock post exam. If Pt. has a central line or IVAD, may access for administration according to line specific nursing protocol. Once exam is complete flush line and de-access according to line specific nursing protocol in the CT contrast administration guidelines link. 1 Each 0 03/15/2022 Active Comment on above: CT ABD/PEL -Inject, intravenously, once for 1 dose.No IV access, insert saline lock prior to the beginning of sedation, infusion, injection of imaging exam. Discontinue saline lock post exam. If Pt. has a central line or IVAD, may access for administration according to line specific nursing protocol. Once exam is complete flush line and de-access according to line specific nursing protocol in the CT contrast administration guidelines link. lidocaine 0.05 mg/mg medicated patch (10 sources) Antiarrhythmic, Amide Local Anesthetic Start: 11-02-2021 End: 11-15-2023 Lidocaine (Lidoderm) 5 % adhesive patch,medicated Discontinued 1 NMA TOPICAL DAILY 15 0 November 02, 2021 12:00am November 15, 2023 3:49pm leave on most painful area for up to 12 hrs End: 01-31-2022 apply 1 dose transdermal route every twenty-four hours lidocaine (LIDODERM) 5 % Apply 1 Patch as directed every 24 hours. 0 01/31/2022 Discontinued Comment on above: Apply 1 Patch as dir ected every 24 hours. montelukast 10 mg oral tablet (17 sources) Leukotriene Receptor Antagonist Start: 0 End: 3 take 1 tablet by mouth at bedtime as needed Montelukast 10 mg tablet Discontinued 10 mg PO AT BEDTIME as needed for allergies November 02, 2021 10:08am October 16, 2022 9:43am Comment on above: Take 10 mg by mouth daily at bedtime. MULTIPLE VITAMIN (10 sources) Start: 7 MULTIVITAMINS CAPS as directed MULTIPLE VITAMIN [id number] Angela Salmeron LPN MULTIPLE VITAMIN (6 sources) Start: 7 MULTIVITAMINS CAPS as directed MULTIPLE VITAMIN [id number] Angela Salmeron LPN Start: 09-29-2016 MULTIVITAMINS CAPS as directed MULTIPLE VITAMIN [id number] Angela Salmeron LPN Multivitamin With Folic Acid (5 sources) Start: 04-23-2015 End: 04-28-2019 take 1 tablet by mouth once daily as needed Multivitamin With Folic Acid Discontinued 1 TABLET PO DAILY NEEDED April 22, 2015 11:00pm April 28, 2019 9:29am Start: 04-23-2015 End: 04-28-2019 take 1 tablet by mouth once daily as needed Multivitamin With Folic Acid Discontinued 1 TABLET PO DAILY NEEDED April 23, 2015 12:00am April 28, 2019 10:29am Multivitamin With Folic Acid 1 TABLET tablet (2 sources) Start: 04-23-2015 End: 04-28-2019 take 1 tablet by mouth once daily as needed Multivitamin With Folic Acid 1 TABLET tablet Discontinued 1 {tbl} PO DAILY NEEDED as needed for GOOD HEALTH April 23, 2015 12:00am April 28, 2019 10:29am Nicotine (6 sources) Cholinergic Nicotinic Agonist Start: 11-22-2021 apply 1 dose transdermal route once daily Nicotine 21-14-7 mg/24 hr ptds Apply 1 Patch as directed once daily for 14 days. 56 Patch 0 11/22/2021 Active Start: 11-22-2021 End: 12-06-2021 apply 1 dose transdermal route once daily Nicotine 21-14-7 mg/24 hr ptds Apply 1 Patch as directed once daily for 14 days. 56 Patch 0 11/22/2021 12/06/2021 Active Comment on above: Apply 1 Patch as dir ected once daily for 14 days. oxyCODONE hydrochloride 5 mg oral capsule (17 sources) Opioid Agonist Start: 4 End: 4 take 1 capsule by mouth every four hours as needed for pain Oxycodone 5 mg capsule Discontinued 5 mg PO Q4H as needed for pain 42 7 0 April 27, 2023 November 15, 2023 3:50pm Other acute postprocedural pain Other acute postprocedural pain Start: 02-09-2022 End: 03-29-2022 take 1 tablet by mouth every six hours as needed for pain oxyCODONE IR (ROXICODONE) 5 mg immediate release tablet Indications: Umbilical hernia without obstruction or gangrene Take 1 tablet by mouth every 6 hours as needed for pain. 20 tablet 0 03/15/2022 03/29/2022 Discontinued (Course of therapy completed) Start: 11-02-2021 End: 10-16-2022 take 1 tablet by mouth every eight hours as needed for pain Oxycodone 10 mg tablet Discontinued 10 mg PO Q8H as needed for pain 10 5 0 November 02, 2021 October 16, 2022 9:43am Right inguinal hernia Comment on above: Take 1 tablet by royal th every 6 hours as needed for pain. predniSONE 20 mg oral tablet (14 sources) Start: 05-06-2019 End: 05-13-2019 take 2 tablets by mouth once daily Prednisone 20 mg tablet Discontinued 40 mg PO DAILY 10 0 May 06, 2019 12:00am May 13, 2019 10:49am Start: 05-06-2019 End: 05-13-2019 take 40 mg by mouth once daily Prednisone Discontinued 40 MG PO DAILY May 06, 2019 12:00am May 13, 2019 10:49am Start: 02-16-2017 End: 04-28-2019 take 3 tablets by mouth once daily at mealtime Prednisone 20 MG tablet Discontinued 60 mg PO DAILY February 16, 2017 1:00am April 28, 2019 10:29am With food Start: 02-16-2017 End: 04-28-2019 take 60 mg by mouth once daily at mealtime Prednisone Discontinued 60 MG PO DAILY February 16, 2017 1:00am April 28, 2019 10:29am With food sulfamethoxazole 800 mg / trimethoprim 160 mg oral tablet (20 sources) Dihydrofolate Reductase Inhibitor Antibacterial, Sulfonamide Antimicrobial Start: 10-04-2016 End: 10-11-2016 BACTRIM DS 800-160 MG TABS 1 tab BID SULFAMETHOXAZOLE-TRIMETHOPRIM [id number] Laina Marinelli MD Start: 10-04-2016 End: 10-11-2016 BACTRIM DS 800-160 MG TABS 1 tab BID SULFAMETHOXAZOLE-TRIMETHOPRIM [id number] Laina Marinelli MD Start: 09-29-2016 End: 10-06-2016 BACTRIM DS 800-160 MG TABS T nisha 1 tablet every 12 hours SULFAMETHOXAZOLE-TRIMETHOPRIM [id number] Parveen SOSA Start: 09-29-2016 End: 10-06-2016 BACTRIM DS 800-160 MG TABS T nisha 1 tablet every 12 hours SULFAMETHOXAZOLE-TRIMETHOPRIM [id number] Parveen SOSA Problems Active Problems Problem Classification Problem Date Documented Date Episodic/Chronic Abdominal hernia (20 sources) Umbilical hernia; Translations: [Umbilical hernia without obstruction or gangrene] Onset: 11-08-2021 Episodic Anxiety disorders (7 sources) Mixed anxiety and depressive disorder; Translations: [Anxiety disorder, unspecified] Onset: 05-09-2024 11-15-2023 Chronic Cancer of cervix (7 sources) Malignant tumor of cervix; Translations: [Malignant neoplasm of cervix uteri, unspecified] 12-01-2019 Chronic Comment on above: cells frozen Disorders of teeth and jaw (7 sources) Toothache; Translations: [Other specified disorders of teeth and supporting structures] 12-02-2019 Episodic Ectopic (7 sources) Tubal ; Translations: [Unspecified tubal without intrauterine ] 12-01-2019 Episodic Immunizations and screening for infectious disease (7 sources) Suspected disease caused by 2019-nCoV; Translations: [Suspected COVID-19 virus infection] 12-02-2019 Episodic Mood disorders (1 source) Mood disorders; Translations: [Depression, unspecified] Onset: 05-09-2024 Osteoarthritis (19 sources) Arthritis; Translations: [Unspecified osteoarthritis, unspecified site] 12-01-2019 Chronic Other acquired deformities (7 sources) Scoliosis deformity of spine; Translations: [Scoliosis, unspecified] 12-01-2019 Chronic Other connective tissue disease (5 sources) Left upper quadrant pain; Translations: [Myalgia, other site] 10-19-2022 Episodic Other connective tissue disease (5 sources) Foot pain; Translations: [Pain in right foot] 10-19-2022 Episodic Other connective tissue disease (1 source) Myalgia, other site; Translations: [Myalgia and myositis, unspecified] 10-19-2022 Episodic Other hereditary and degenerative nervous system conditions (4 sources) Restless legs; Translations: [Restless legs syndrome] 04-03-2023 Chronic Other hereditary and degenerative nervous system conditions (2 sources) Restless legs syndrome; Translations: [Restless legs syndrome (RLS)] 04-03-2023 Chronic Other injuries and conditions due to external causes (1 source) Traumatic shock, initial encounter; Translations: [Traumatic shock, initial encounter] Onset: 10-01-2024 Episodic Other lower respiratory disease (7 sources) Wheezing; Translations: [Wheezing] 12-02-2019 Episodic Other nervous system disorders (7 sources) Carpal tunnel syndrome; Translations: [Carpal tunnel syndrome, bilateral upper limbs] 10-05-2016 Chronic Other nervous system disorders (2 sources) Chronic pain; Translations: [Other chronic pain] 11-15-2023 Chronic Other nervous system disorders (1 source) Other chronic pain; Translations: [Other chronic pain] Onset: 04-22-2024 Chronic Other nervous system disorders (4 sources) Acute postoperative pain; Translations: [Other acute postprocedural pain] 04-27-2023 Episodic Other non-traumatic joint disorders (7 sources) Pain in unspecified knee; Translations: [Knee pain] 12-01-2019 Episodic Other skin disorders (7 sources) History of skin and/or subcutaneous tissue disease; Translations: [Personal history of diseases of the skin and subcutaneous tissue] 12-01-2019 Episodic Residual codes; unclassified (7 sources) Acute pain; Translations: [Pain, unspecified] 11-10-2021 Episodic Residual codes; unclassified (2 sources) History of hernia repair; Translations: [Other specified postprocedural states] Episodic Residual codes; unclassified (3 sources) Tobacco user; Translations: [Tobacco use] 03-07-2024 Episodic Residual codes; unclassified (2 sources) Tobacco use; Translations: [Tobacco use] Onset: 04-22-2024 Episodic Screening or history of mental health and substance abuse (15 sources) Tobacco dependence syndrome; Translations: [Nicotine dependence, unspecified, uncomplicated] Onset: 10-04-2016 10-04-2016 Chronic Spondylosis; intervertebral disc disorders; other back problems (10 sources) Backache; Translations: [Dorsalgia, unspecified] 12-01-2019 Episodic Unclassified (1 source) Low back pain, unspecified; Translations: [Low back pain, unspecified] Onset: 04-22-2024 Past or Other Problems Problem Classification Problem Date Documented Da te Episodic/Chronic Malaise and fatigue (8 sources) Fatigue; Translations: [Other fatigue] Onset: 05-09-2024 12-01-2019 Episodic Nonspecific chest pain (11 sources) Chest wall pain; Translations: [Other chest pain] Onset: 05-09-2024 10-16-2022 Episodic Other connective tissue disease (4 sources) Pain in right foot; Translations: [Pain in limb] Onset: 02-13-2024 10-19-2022 Episodic Other gastrointestinal disorders (2 sources) Personal history of other diseases of the digestive system; Translations: [S/P hernia repair] Onset: 03-29-2022 Episodic Otitis media and related conditions (11 sources) Otitis media; Translations: [Otitis media, unspecified, unspecified ear] Onset: 05-09-2024 04-28-2019 Episodic Residual codes; unclassified (2 sources) Other specified postprocedural states; Translations: [S/P hernia repair] Onset: 03-29-2022 Episodic Skin and subcutaneous tissue infections (16 sources) Cellulitis of lower limb; Translations: [Cellulitis of left lower limb] Onset: 09-29-2016 09-29-2016 Episodic Superficial injury; contusion (15 sources) Hematoma; Translations: [Other injury of unspecified body region] Onset: 10-04-2016 10-04-2016 Episodic Unclassified (20 sources) Encounter for screening for diabetes mellitus; Translations: [Patient encounter status] Onset: 10-04-2016 10-04-2016 Episodic Results Test Name Value Interpretation Reference Range Facility Internal Medicine Office Vis mike 07-04-2024 Internal Medicine Office Visit [facility] [address] [place] [address] [place] [address] OFFICE VISIT Date of Service: 07/04/24 MR#: [id number] Acct: [id number] Name: ISAK HARVEY #: [id number] : 1970 Provider: SHEILA Burch Age/Sex: 54/F [place] [facility] [place]: Signed Intake Vital Signs 05/30/24 09:44 07/04/24 10:03 Height 5 ft 4 in 5 ft 4 in Weight: 185 lb 185 lb 2 oz BMI 31.7 31.7 BP 120/72 138/86 H Blood Pressure Location Lt brachial Rt brachial Position Sitting Sitting Respiration 16 16 Pulse 71 76 Pulse Source Monitor Monitor Temp 98.6 F 97.2 F L Temp Source Temporal Temporal Pulse Oximetry (%) 97 97 Oxygen Delivery Method room air room air Intake Visit Reasons: 1 M FU Chief Complaint: 6 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: No Accompanied by: Self Is patient in pain?: No Allergies tramadol Allergy (Verified 07/04/24 10:00) Other Medications ???Medication ???Instructions ???Recorded ???Confirmed ???Type hydrocodone 7.5 mg-acetaminophen 1 tab PO 4X/DAY PRN pain 02/16/17 07/04/24 History 325 mg tablet ascorbic acid (vitamin C) 500 mg 500 mg PO DAILY 04/28/19 07/04/24 History capsule pregabalin 75 mg capsule 75 mg PO BID 05/06/19 07/04/24 His tory albuterol sulfate 90 mcg/actuation 2 inh inhalation Q6H PRN shortne ss 05/07/19 07/04/24 Rx breath activated powder inhaler of breath or wheezing #1 ea celecoxib 200 mg capsule 200 mg PO DAILY 06/11/20 07/04/24 History budesonide-formoterol HFA 80 2 puff inhalation BID PRN 11/02/21 07/04/24 History mcg-4.5 mcg/actuation aerosol Bronchospasm inhaler (Symbicort) tizanidine 4 mg tablet 4 mg PO QHS PRN muscle spasticity 04/18/23 07/04/24 History acetaminophen 500 mg capsule 500 mg PO Q6H PRN pain #30 caps 07/04/24 Rx ondansetron 4 mg disintegrating 4 mg PO Q8H PRN nausea and 4 07/04/24 Rx tablet vomiting #12 tabs duloxetine 30 mg capsule,delayed 30 mg PO BID #60 caps 04/18/24 Rx release (Cymbalta) cholecalciferol (vitamin D3) 1,250 1,250 mcg PO QWEEK #12 caps 05/0707/04/24 Rx mcg (50,000 unit) capsule buspirone 7.5 mg tablet 7.5 mg PO BID #180 tabs 07/04/24 0 07/04/24 Rx duloxetine 20 mg capsule,delayed 20 mg PO BID #180 caps 07/04/24 Rx release (Cymbalta) Have you fallen in the past year?: No Nurse's Note: discuss lowering cymbalta also needs refills [facility] Medical History Health care maintenance Chronic pain Anxiety and depression Loose, teeth Teeth missing MRSA infection Cancer Anxiety Chronic cough Smoker History of edema Muscular abdominal pain in left upper quadrant Right foot pain Screening for thyroid disorder Scoliosis History of abscess of skin and subcutaneous tissue Cervical cancer Tubal Back pain Knee pain Fatigue Arthritis Surgical History Hx of hernia repair History of knee replacement History of arthroscopic knee surgery History of hysterectomy Family History Father Diabetes CVA (cerebral vascular accident) Sister Ovarian cancer Son , at 6 weeks - CHF Heart disease Other Cancer Social History Smoking Status: Current some day smoker tobacco type: cigarettes alcohol intake: current alcohol intake frequency: holidays/special occasions only substance use type: does not use what type of physical activity do you participate in: walking HPI HPI Chief Complaint: 6 wk FU Details: ISAK HARVEY, is a 54 F who presents to the office today for refills of her medication and to recheck her new medication. Patient states that she has been taking the Cymbalta along with the buspirone and she does definitely feel better taking both. She states that sometimes she feels a little groggy but she has not been nearly as anxious and her mind isnt racing nowhere near it was. She states that she has been sleeping much better because of this. She is not having any side effects or any tolerance issues. She is still smoking but only every once in a while. She is doing much better and is close to quitting. She states that she had a few cigarettes over the past few weeks which happened due to stress. ROS Const Constitutional: No body ache, excessive sweating, fatigue, fever(s), frequent falls, headache(s), snoring, weakness, weight change, sleep problems or change in appetite Eyes Eyes: No blurry vision, change in vision, eye pain or Light sensitivity ENT ENT: No abnormal hearing, ear or mastoid pain, tinnitus, nasal congestion, headache(s), neck pain or sore throat Resp Respiratory: No cough, short (more content not included)... Normal [facility] Internal Medicine Office Vis mike 05-30-2024 Internal Medicine Office Visit [facility] [address] [place] [address] OFFICE VISIT Date of Service: 05/30/24 MR#: [id number] Acct: [id number] Name: ISAK HARVEY García Rep #: [id number] : 1970 Provider: SHEILA Burch Age/Sex: 54/F [place] [facility] [place] Status: Signed Intake Vital Signs 04/18/24 12:39 05/30/24 09:44 Height 5 ft 4 in 5 ft 4 in Weight: 171 lb 185 lb BMI 29.3 31.7 BP 142/80 H 120/72 Blood Pressure Location Lt brachial Lt brachial Position Sitting Sitting Respiration 18 16 Pulse 89 71 Pulse Source Monitor Monitor Temp 98.2 F 98.6 F Temp Source Temporal Temporal Pulse Oximetry (%) 94 97 Oxygen Delivery Method room air room air Intake Visit Reasons: 6 wk FU Chief Complaint: 6 wk FU Is patient in pain?: Yes (RIGHT FOOT, LOWER BACK) Pain scale (1-10): 8 Allergies tramadol Allergy (Verified 05/30/24 09:40) Other Medications ???Medication ???Instructions ???Recorded ???Confirmed ???Type hydrocodone 7.5 mg-acetaminophen 1 tab PO 4X/DAY PRN pain 02/16/17 05/30/24 History 325 mg tablet ascorbic acid (vitamin C) 500 mg 500 mg PO DAILY 04/28/19 05/30/24 History capsule pregabalin 75 mg capsule 75 mg PO BID 05/06/19 05/30/24 His tory albuterol sulfate 90 mcg/actuation 2 inh inhalation Q6H PRN shortne ss 05/07/19 05/30/24 Rx breath activated powder inhaler of breath or wheezing #1 ea celecoxib 200 mg capsule 200 mg PO DAILY 06/11/20 05/30/24 History budesonide-formoterol HFA 80 2 puff inhalation BID PRN 11/02/21 05/30/24 History mcg-4.5 mcg/actuation aerosol Bronchospasm inhaler (Symbicort) tizanidine 4 mg tablet 4 mg PO QHS PRN muscle spasticity 04/18/23 05/30/24 History acetaminophen 500 mg capsule 500 mg PO Q6H PRN pain #30 caps 05/30/24 Rx ondansetron 4 mg disintegrating 4 mg PO Q8H PRN nausea and 4 05/30/24 Rx tablet vomiting #12 tabs duloxetine 30 mg capsule,delayed 30 mg PO BID #60 caps 04/18/24 Rx release (Cymbalta) cholecalciferol (vitamin D3) 1,250 1,250 mcg PO QWEEK #12 caps 05/0705/30/24 Rx mcg (50,000 unit) capsule buspirone 7.5 mg tablet 7.5 mg PO BID #60 tabs 05/31/24 Rx PFSH Medical History Health care maintenance Chronic pain Anxiety and depression Loose, teeth Teeth missing MRSA infection Cancer Anxiety Chronic cough Smoker History of edema Muscular abdominal pain in left upper quadrant Right foot pain Screening for thyroid disorder Scoliosis History of abscess of skin and subcutaneous tissue Cervical cancer Tubal Back pain Knee pain Fatigue Arthritis Surgical History Hx of hernia repair History of knee replacement History of arthroscopic knee surgery History of hysterectomy Family History Father Diabetes CVA (cerebral vascular accident) Sister Ovarian cancer Son , at 6 weeks - CHF Heart disease Other Cancer Social History Smoking Status: Current some day smoker tobacco type: cigarettes alcohol intake: current alcohol intake frequency: holidays/special occasions only substance use type: does not use what type of physical activity do you participate in: walking Questionnaire KIYA-7 BMS KIYA-7 Feeling nervous, anxious, or on edge: 1 = Several days Not being able to stop or control worryin = Nearly every day Worrying too much about different things: 3 = Nearly every day Trouble relaxin = Several days Being so restless that it is hard to sit still: 1 = Several days Becoming easily annoyed or irritable: 1 = Several days Feeling afraid as if something awful might happen: 3 = Nearly every day Total KIYA-7 score (0-4 normal; 5-9 mild; 10-14 moderate; 15-21 severe): 13 Source: Developed by Drs. Anthony Worrell, Mayte Samayoa, Fantasma Francisco and colleagues, with an educational samir from [employer]. HPI HPI Chief Complaint: 6 wk FU Details: ISAK HARVEY, is a 54 F who presents to the office today for follow-up on her anxiety / depression. Patient states that she did not notice any improvement in her anxiety with increasing the cymbalta. She states that she still feels anxious and states that she just feels like her brain doesn't shut off. She has dealt with anxiety for as long as she can remember at the same time just states that it worsened gradually with time as she got older. Patient is currently seeing podiatry for some chronic lower extremity edema. She recently had an BRYSON and to f/u with him to review these results and discuss surgical intervention ROS Const Constitutional: Positive for fatigue; No body ache, chill (more content not included)... Normal [facility] Anion gap in Serum or Plasma Ordered By: Willard Lovett on 05-27-2024 Anion gap [Moles/Vol] 10 mmol/L 5-[address] [facility] BUN/creatinine ratioOrdered By: Willard Lovett on 05-27-2024 Urea nitrogen/Creatinine [Mass ratio] 15.8 mg/mg 10-20 [facility] Bilirubin, totalOrdered By: Willard Lovett on 05-27-2024 Bilirubin [Mass/Vol] 0.27 mg/dL 0.00-1.30 [facility] CBC-Complete Blood Cnt No Di ffon 05-27-2024 Erythrocyte distribution width (RBC) [Ratio] 13.4 % Normal 11.6-14.6 [facility] Comment on above: Performed By: #### L 500.4100, L500.4050, L501.9520, L506.1001, L100.0500 ####[facility] [address] [place], [address] Hematocrit (Bld) [Volume fraction] 36.8 % Low 37-47 [facility] Comment on above: Performed By: #### L 500.4100, L500.4050, L501.9520, L506.1001, L100.0500 ####[facility] [address] [place], [address] Hemoglobin (Bld) [Mass/Vol] 12.1 g/dL Normal 12.0-15.0 [facility] Comment on above: Performed By: #### L 500.4100, L500.4050, L501.9520, L506.1001, L100.0500 ####[facility] [address] [place], [address] MCH (RBC) [Entitic mass] 32.2 pg High 27.0-32.0 [facility] Comment on above: Performed By: #### L 500.4100, L500.4050, L501.9520, L506.1001, L100.0500 ####[facility] [address] [place], [address] MCHC (RBC) [Mass/Vol] 32.9 g/dL Normal 32-[address] [facility] Comment on above: Performed By: #### L 500.4100, L500.4050, L501.9520, L506.1001, L100.0500 ####[facility] [address] [place], [address] MCV (RBC) [Entitic vol] 97.9 fL Normal 81-99 [facility] Comment on above: Performed By: #### L 500.4100, L500.4050, L501.9520, L506.1001, L100.0500 ####[facility] [address] [place], [address] Platelet mean volume (Bld) [Entitic vol] 9.8 fL Normal 6.2-12.0 [facility] Comment on above: Performed By: #### L 500.4100, L500.4050, L501.9520, L506.1001, L100.0500 ####[facility] [address] [place], [address] Platelets (Bld) [#/Vol] 251 10*3/uL Normal 150-450 [facility] Comment on above: Performed By: #### L 500.4100, L500.4050, L501.9520, L506.1001, L100.0500 ####[facility] [address] [place], [address] RBC (Bld) [#/Vol] 3.76 10*6/uL Low 4.2-5.4 [facility] Comment on above: Performed By: #### L 500.4100, L500.4050, L501.9520, L506.1001, L100.0500 ####[facility] [address] [place], [address] RDW SD 48.3 fl High 35.1-43.9 [facility] Comment on above: Performed By: #### L 500.4100, L500.4050, L501.9520, L506.1001, L100.0500 ####[facility] [address] [place], [address] WBC (Bld) [#/Vol] 6.5 10*3/uL Normal 4.4-11.0 [facility] Comment on above: Performed By: #### L 500.4100, L500.4050, L501.9520, L506.1001, L100.0500 ####[facility] [address] [place], [address] Calculated very low density lipoprotein (VLDL) cholesterol measurementOrdered By: Willard Lovett on 05-27-2024 Calculated very low density lipoprotein (VLDL) cholesterol measurement 20 mg/dL 5-40 [facility] Carbon dioxide, total [Moles /volume] in Central venous bloodOrdered By: Willard Lovett on 05-27-2024 CO2 [Moles/Vol] 27.1 mmol/L 21.0-32.0 [facility] Chloride assayOrdered By: Nithya Lovett on 05-27-2024 Chloride [Moles/Vol] 103 mmol/L 98-108 [facility] Comprehensive Metabolic Prof ilon 05-27-2024 Albumin [Mass/Vol] 4.0 g/dL Normal 3.5-5.0 [facility] Comment on above: Performed By: #### L 500.4100, L500.4050, L501.9520, L506.1001, L100.0500 ####[facility] [address] [place], [address] Albumin/Globulin [Mass ratio] 1.4 {ratio} Normal 0.9-2.4 [facility] Comment on above: Performed By: #### L 500.4100, L500.4050, L501.9520, L506.1001, L100.0500 ####[facility] [address] [place], [address] ALK PHOS 102 U/L Normal 35-104 [facility] Comment on above: Performed By: #### L 500.4100, L500.4050, L501.9520, L506.1001, L100.0500 ####[facility] [address] [place], [address] ALT [Catalytic activity/Vol] 16 U/L Normal <=34 [facility] Comment on above: Performed By: #### L 500.4100, L500.4050, L501.9520, L506.1001, L100.0500 ####[facility] [address] [place], [address] AST [Catalytic activity/Vol] 25 U/L Normal <=31 [facility] Comment on above: Performed By: #### L 500.4100, L500.4050, L501.9520, L506.1001, L100.0500 ####[facility] [address] [place], [address] Bilirubin [Mass/Vol] 0.27 mg/dL Normal 0.00-1.30 [facility] Comment on above: Performed By: #### L 500.4100, L500.4050, L501.9520, L506.1001, L100.0500 ####[facility] [address] [place], [address] BUN/CRE 15.8 RATIO Normal 10-20 [facility] Comment on above: Performed By: #### L 500.4100, L500.4050, L501.9520, L506.1001, L100.0500 ####[facility] [address] [place], [address] Calcium [Mass/Vol] 9.1 mg/dL Normal 7.6-11.0 [facility] Comment on above: Performed By: #### L 500.4100, L500.4050, L501.9520, L506.1001, L100.0500 ####[facility] [address] [place], [address] Chloride [Moles/Vol] 103 mmol/L Normal 98-108 [facility] Comment on above: Performed By: #### L 500.4100, L500.4050, L501.9520, L506.1001, L100.0500 ####[facility] [address] [place], [address] CO2 [Moles/Vol] 27.1 mmol/L Normal 21.0-32.0 [facility] Comment on above: Performed By: #### L 500.4100, L500.4050, L501.9520, L506.1001, L100.0500 ####[facility] [address] [place], [address] Creatinine [Mass/Vol] 0.87 mg/dL Normal 0.70-1.[address] [facility] Comment on above: Performed By: #### L 500.4100, L500.4050, L501.9520, L506.1001, L100.0500 ####[facility] [address] [place], [address] GAP 10 Normal 5-15 [facility] Comment on above: Performed By: #### L 500.4100, L500.4050, L501.9520, L506.1001, L100.0500 ####[facility] [address] [place], [address] GFR/1.73 sq M.predicted among non-blacks MDRD (S/P/Bld) [Vol rate/Area] 78 mL/min/{1.73_m2} Normal >60 [facility] Comment on above: Result Comment: mL/m in/1.73m2 CKD-EPI Creatinine Equation (2020) Performed By: #### L 500.4100, L500.4050, L501.9520, L506.1001, L100.0500 ####[facility] [address] [place], [address] Globulin (S) [Mass/Vol] 3.0 g/dL Normal 2.2-4.2 [facility] Comment on above: Performed By: #### L 500.4100, L500.4050, L501.9520, L506.1001, L100.0500 ####[facility] [address] [place], [address] Glucose [Mass/Vol] 82 mg/dL Normal 70-99 [facility] Comment on above: Performed By: #### L 500.4100, L500.4050, L501.9520, L506.1001, L100.0500 ####[facility] [address] [place], [address] Potassium [Moles/Vol] 4.5 mmol/L Normal 3.3-5.[address] [facility] Comment on above: Performed By: #### L 500.4100, L500.4050, L501.9520, L506.1001, L100.0500 ####[facility] [address] [place], [address] Sodium [Moles/Vol] 140 mmol/L Normal 133-145 [facility] Comment on above: Performed By: #### L 500.4100, L500.4050, L501.9520, L506.1001, L100.0500 ####[facility] [address] [place], [address] T PROT 7.0 g/dL Normal 5.9-8.4 [facility] Comment on above: Performed By: #### L 500.4100, L500.4050, L501.9520, L506.1001, L100.0500 ####[facility] [address] [place], [address] Urea nitrogen [Mass/Vol] 14 mg/dL Normal 4-19 [facility] Comment on above: Performed By: #### L 500.4100, L500.4050, L501.9520, L506.1001, L100.0500 ####[facility] [address] [place], [place], [id number] Erythrocyte distribution wid th ratioOrdered By: Willard Lovett on 05-27-2024 Erythrocyte distribution width (RBC) [Ratio] 13.4 % 11.6-14.6 [facility] Erythrocyte distribution wid th standard deviationOrdered By: Willard Lovett on 05-27-2024 Erythrocyte distribution width (RBC) [Ratio] 48.3 fl High 35.1-43.9 [facility] Glomerular filtration rate ( GFR) estimation/1.73 sq m using serum, plasma, or whole bOrdered By: Willard Lovett on 05-27-2024 GFR/1.73 sq M.predicted among non-blacks MDRD (S/P/Bld) [Vol rate/Area] 78 mL/min/{1.73_m2} >60 [facility] Comment on above: mL/min/1.73m2 CKD-EP I Creatinine Equation (2020) Hematocrit Auto (Bld) [Volum e fraction]Ordered By: Willard Lovett on 05-27-2024 Hematocrit (Bld) [Volume fraction] 36.8 % Low 37-47 [facility] Hemoglobin measurementOrdere d By: Willard Lovett on 05-27-2024 Hemoglobin (Bld) [Mass/Vol] 12.1 g/dL 12.0-15.0 [facility] LDL calc ser/plasOrdered By: Willard Lovett on 05-27-2024 Cholesterol in LDL [Mass/Vol] 118 mg/dL [facility] Comment on above: Hyvgyqiqtr=248-614 m g/dL & Higher Xndy=633 mg/dL or greater Laboratory - Chemistry and C hemistry - challengeOrdered By: Willard Lovett on 05-27-2024 AST [Catalytic activity/Vol] 25 U/L <32 [facility] Lipid Profileon 05-27-2024 CHOL:HDL 3.21 Normal [facility] Comment on above: Performed By: #### L 500.4100, L500.4050, L501.9520, L506.1001, L100.0500 ####[facility] [address] [place], [place], [address] Cholesterol [Mass/Vol] 200 mg/dL Normal <=200 [facility] Comment on above: Result Comment: Chol esterol level, Desirable <200 mg/dL Borderline high cholesterol 200-239 mg/dL High cholesterol >=240 mg/dL Recommendations of the NCEP Adult Treatment Panel for the following risk-cutoff thresholds for the [place] population. Performed By: #### L 500.4100, L500.4050, L501.9520, L506.1001, L100.0500 ####[facility] [id number] [place], [address] Cholesterol in HDL [Mass/Vol] 62 mg/dL Normal [facility] Comment on above: Result Comment: Evelina onal Cholesterol Education Program (NCEP) guidelines: <40 mg/dL: Low HDL-cholesterol (major risk factor for CHD) >= 60 mg/dL: High HDL-cholesterol (negative risk factor for CHD) HDL-cholesterol is affected by a number of factors, e.g. smoking, exercise, hormones, sex and age. Performed By: #### L 500.4100, L500.4050, L501.9520, L506.1001, L100.0500 ####[facility] [id number] [place], [address] Cholesterol in LDL [Mass/Vol] 118 mg/dL Normal [facility] Comment on above: Result Comment: Bord xzegkf=919-561 mg/dL Higher Eevq=613 mg/dL or greater Performed By: #### L 500.4100, L500.4050, L501.9520, L506.1001, L100.0500 ####[facility] [address] [place], [address] Cholesterol in VLDL [Mass/Vol] 20 mg/dL Normal 5-40 [facility] Comment on above: Performed By: #### L 500.4100, L500.4050, L501.9520, L506.1001, L100.0500 ####[facility] [address] [place], [address] Triglyceride [Mass/Vol] 100 mg/dL Normal [facility] Comment on above: Result Comment: The drugs N-Acetylcysteine and Metamizole may falsely depress this assay. Normal range: <150 mg/dL Borderline High: 150-199 mg/dL High: 200-499 mg/dL Very High: >500 mg/dL Performed By: #### L 500.4100, L500.4050, L501.9520, L506.1001, L100.0500 ####[facility] [address] [place], [address] Lower Ext Art Exam w/o Exerc chung 05-27-2024 Lower Ext Art Exam w/o Exercis [facility] [address] [place] [address] Lower Ext Art Exam w/o Exercis 05/27/24 1131 MR#: [id number] Acct: [id number] Name: ISAK HARVEY Rep #: [id number] : 1970 54 From: Levi Garrett MD Attending Dr: Dr. Kaden Flower, SHAYY Status: R EG CLI Ordering Dr: Kaden Flower DPM Date: 05/27/24 Location: [facility] Sex: F C Admitted: Reason For Study Reason For Study: PVD Procedure A bilateral lower extremity continuous wave Doppler with analog waveform analysis,segmental pressures,and ankle brachial indexes without exercise. Left Segmental Pressures Left brachial= 127mmHg. Left posterior tibial artery = 139mmHg. Left dorsalis pedis artery = 140mmHg. Left digit = 87 mmHg. The left dorsalis pedis waveforms are triphasic. The left posterior tibial artery waveforms are triphasic. Right Segmental Pressures Right brachial= 122mmHg. Right posterior tibial artery = 128mmHg. Right dorsalis pedis artery = 126mmHg. Right digit = 96 mmHg. The right dorsalis pedis waveforms are triphasic. The right posterior tibial artery waveforms are triphasic. Indices The right ankle brachial index by the dorsalis pedis is 0.99. The right ankle brachial index by the posterior tibial artery is 1.01. The right digital-brachial index is 0.76. The left ankle brachial index by the dorsalis pedis is 1.10. The left ankle brachial index by the posterior tibial artery is 1.09. The left digital-brachial index is 0.69. VL/Lower Ext Art Exam w/o Exercis Interpretation Summary Triphasic Doppler waveforms are noted at ankle level bilaterally. Pulse-volume recordings appear satisfactory at all levels bilaterally. Resting ankle-brachial indices are normal bilaterally. The right digital- brachial index is normal. The left digital-brachial index is mildly diminished. Arterial flow is normal at ankle level bilaterally, and at digital level on the right. There is evidence of mild arterial occlusive disease at digital level on the left. Ordering Physician: Kaden Flower Referring Physician: Laina Mairnelli Performed By: Tiff Carrillo RVT 05/27/242029 Date Levi Garrett MD CC: DPFredo Flower; Dr. Laina Marinelli MD Date Dictated: 05/27/241130 Date Transcribed: 05/27/242029 Bell Staff: Signed Normal [facility] MCV (mean corpuscular volume ) determinationOrdered By: Willard Lovett on 05-27-2024 MCV (RBC) [Entitic vol] 97.9 fL 81-99 [facility] Mean corpuscular hemoglobin (MCH) determinationOrdered By: Willard Lovett on 05-27-2024 MCH (RBC) [Entitic mass] 32.2 pg High 27.0-32.0 [facility] Mean corpuscular hemoglobin concentration (MCHC) determinationOrdered By: Willard Lovett on 05-27-2024 MCHC (RBC) [Mass/Vol] 32.9 g/dL 32-[address] [facility] Mean platelet volume determi nationOrdered By: Willard Lovett on 05-27-2024 Platelet mean volume (Bld) [Entitic vol] 9.8 fL 6.2-12.0 [facility] Platelet countOrdered By: Nithya Lovett on 05-27-2024 Platelets (Bld) [#/Vol] 251 10*3/uL 150-450 [facility] Potassium measurement (mass/ volume)Ordered By: Willard Lovett on 05-27-2024 Potassium (Unsp spec) [Mass/Vol] 4.5 mmol/L 3.3-5.1 [facility] RBC Auto (Bld) [#/Vol]Ordere d By: Willard Lovett on 05-27-2024 RBC (Bld) [#/Vol] 3.76 10*6/uL Low 4.2-5.4 [facility] Screening total cholesterol/ high density lipoprotein (HDL) cholesterol ratioOrdered By: Willard Lovett on 05-27-2024 Cholesterol.total/Bernadette sterol in HDL [Mass ratio] 3.21 {ratio} [facility] Serum creatinine measurement (mass/volume)Ordered By: Willard Lovett on 05-27-2024 Creatinine [Mass/Vol] 0.87 mg/dL 0.70-1.[address] [facility] Serum globulin measurementOr dered By: Willard Lovett on 05-27-2024 Globulin (S) [Mass/Vol] 3.0 g/dL 2.2-4.2 [facility] Serum glucose measurement (m ass/volume)Ordered By: Willard Lovett on 05-27-2024 Glucose [Mass/Vol] 82 mg/dL 70-99 [facility] Serum or plasma alanine del castillo otransferase (ALT) measurementOrdered By: Willard Lovett on 05-27-2024 ALT [Catalytic activity/Vol] 16 U/L <35 [facility] Serum or plasma albumin michael urement (mass/volume)Ordered By: Willard Lovett on 05-27-2024 Albumin [Mass/Vol] 4.0 g/dL 3.5-5.0 [facility] Serum or plasma albumin/glob ulin mass ratioOrdered By: Willard Lovett on 05-27-2024 Albumin/Globulin [Mass ratio] 1.4 {ratio} 0.9-2.4 [facility] Serum or plasma alkaline ramírez sphatase measurementOrdered By: Willard Lovett on 05-27-2024 ALP [Catalytic activity/Vol] 102 U/L 35-104 [facility] Serum or plasma calcium michael urement (mass/volume)Ordered By: Willard Lovett on 05-27-2024 Calcium [Mass/Vol] 9.1 mg/dL 7.6-11.0 [facility] Serum or plasma cholesterol in HDL measurement (mass/volume)Ordered By: Willard Lovett on 05-27-2024 Cholesterol in HDL [Mass/Vol] 62 mg/dL >40 [facility] Comment on above: National Cholesterol Education Program (NCEP) guidelines:<40 mg/dL: Low HDL-cholesterol (major risk factor for CHD)>= 60 mg/dL: High HDL-cholesterol (negative risk factor for CHD)HDL-cholesterol is affected by a number of factors, e.g. smoking, exercise, hormones, sex and age. Serum or plasma cholesterol measurement (mass/volume)Ordered By: Willard Lovett on 05-27-2024 Cholesterol [Mass/Vol] 200 mg/dL <201 [facility] Comment on above: Cholesterol level, D esirable <200 mg/dLBorderline high cholesterol 200-239 mg/dLHigh cholesterol >=240 mg/dLRecommendations of the NCEP Adult Treatment Panel for the following risk-cutoff thresholds for the [place] population. Serum or plasma urea nitroge n measurement (mass/volume)Ordered By: Willard Lovett on 05-27-2024 Urea nitrogen [Mass/Vol] 14 mg/dL 4-19 [facility] Sodium levelOrdered By: Wilfrid Lovett on 05-27-2024 Sodium [Moles/Vol] 140 mmol/L 133-145 [facility] TSH DL <= 0.005 mIU/L QnOrde red By: Willard Lovett on 05-27-2024 TSH Qn 1.340 uIU/mL 0.300-4.200 [facility] Thyroid Stim Hormone (TSH)on 05-27-2024 TSH 1.340 uIU/mL Normal 0.300-4.200 [facility] Comment on above: Performed By: #### L 500.4100, L500.4050, L501.9520, L506.1001, L100.0500 ####[facility] [address] [place], [address] Total proteinOrdered By: Arnie Lovett on 05-27-2024 Protein [Mass/Vol] 7.0 g/dL 5.9-8.4 [facility] Triglycerides measurementOrd ered By: Willard Lovett on 05-27-2024 Triglyceride [Mass/Vol] 100 mg/dL <199 [facility] Comment on above: The drugs N-Acetylcy steine and Metamizole may falsely depress this assay. Normal range: <150 mg/dLBorderline High: 150-199 mg/dLHigh: 200-499 mg/dLVery High: >500 mg/dL Vitamin D,25 Hydroxyon 05-27 Vitamin D 25-OH 14.3 ng/mL Low 30-100 [facility] Comment on above: Result Comment: Fatimah min D Status Deficiency: <20 ng/mL (50nmol/L) Insufficiency: 20-30 ng/mL (50-75 nmol/L) Sufficiency: 30-100 ng/mL (75-250 nmol/L) Toxicity: >100 ng/mL (>250 nmol/L) Performed By: #### L 500.4100, L500.4050, L501.9520, L506.1001, L100.0500 ####[facility] [address] [place], [address] White blood cell (WBC) count Ordered By: Willard Lovett on 05-27-2024 WBC (Bld) [#/Vol] 6.5 10*3/uL 4.4-11.0 [facility] Internal Medicine Office Vis mike 04-18-2024 Internal Medicine Office Visit [facility] [address] [place] [address] [address] [place], [place] [address] OFFICE VISIT Date of Service: 04/18/24 MR#: [id number] Acct: [id number] Name: ISAK HARVEY Rep #: [id number] : 1970 Provider: SHEILA Burch Age/Sex: 53/F [place] [facility] [place]: Signed Intake Vital Signs 03/07/24 12:32 04/18/24 12:39 Height 5 ft 4 in 5 ft 4 in Weight: 162 lb 4 oz 171 lb BMI 27.8 29.3 BP 118/78 142/80 H Blood Pressure Location Rt brachial Lt brachial Position Sitting Sitting Respiration 16 18 Pulse 71 89 Pulse Source Monitor Monitor Temp 99.1 F 98.2 F Temp Source Temporal Temporal Pulse Oximetry (%) 99 94 Oxygen Delivery Method room air room air Intake Visit Reasons: 6 wk FU Chief Complaint: 6 wk FU Is patient in pain?: Yes (4 in left ear, pressure ) Allergies tramadol Allergy (Verified 04/18/24 12:35) Other Medications ???Medication ???Instructions ???Recorded ???Confirmed ???Type hydrocodone 7.5 mg-acetaminophen 1 tab PO 4X/DAY PRN pain 02/16/17 04/18/24 History 325 mg tablet ascorbic acid (vitamin C) 500 mg 500 mg PO DAILY 04/28/19 04/18/24 History capsule pregabalin 75 mg capsule 75 mg PO BID 05/06/19 04/18/24 His tory albuterol sulfate 90 mcg/actuation 2 inh inhalation Q6H PRN shortne ss 05/07/19 03/07/24 Rx breath activated powder inhaler of breath or wheezing #1 ea celecoxib 200 mg capsule 200 mg PO DAILY 06/11/20 04/18/24 History budesonide-formoterol HFA 80 2 puff inhalation BID PRN 11/02/21 03/07/24 History mcg-4.5 mcg/actuation aerosol Bronchospasm inhaler (Symbicort) tizanidine 4 mg tablet 4 mg PO QHS PRN muscle spasticity 04/18/23 04/18/24 History acetaminophen 500 mg capsule 500 mg PO Q6H PRN pain #30 caps 04/18/24 Rx ondansetron 4 mg disintegrating 4 mg PO Q8H PRN nausea and 4 04/18/24 Rx tablet vomiting #12 tabs duloxetine 30 mg capsule,delayed 30 mg PO BID #60 caps 04/18/24 Rx release (Cymbalta) Have you fallen in the past year?: Yes (x1) Nurse's Note: pt has c/o pain/pressure in her left ear. she states it feels infected. pt reports that when she has heart racing with hot flashes pt states that she will sometimes feel pain in her left breast with the hot flashes PFSH Medical History Health care maintenance Chronic pain Anxiety and depression Loose, teeth Teeth missing MRSA infection Cancer Anxiety Chronic cough Smoker History of edema Muscular abdominal pain in left upper quadrant Right foot pain Screening for thyroid disorder Scoliosis History of abscess of skin and subcutaneous tissue Cervical cancer Tubal Back pain Knee pain Fatigue Arthritis Surgical History Hx of hernia repair History of knee replacement History of arthroscopic knee surgery History of hysterectomy Family History Father Diabetes CVA (cerebral vascular accident) Sister Ovarian cancer Son , at 6 weeks - CHF Heart disease Other Cancer Social History Smoking Status: Current some day smoker tobacco type: cigarettes alcohol intake: current alcohol intake frequency: holidays/special occasions only substance use type: does not use what type of physical activity do you participate in: walking HPI HPI Chief Complaint: 6 wk FU Details: ISAK HRAVEY, is a 53 F who presents to the office today for f/u of her anxiety meds. She states that she was supposed to increase it when she was here last but did not increase it. She states that she didn't know if she was supposed to take more or if we were going to up the dose so she just With her regular dose and figured she would discuss it today. Patient states that she has had fullness in the past 2 days. She states that she has had ear issues from the covid infection that eventually required her to see ENT for regular exams. She states they tried to place tubes twice but they were unsuccessful. They wanted to get an MRI but she was claustrophobic and so she did not go ahead with the MRI and she did not then f/u as he had moved away. She states that one night she woke up and there was fluid on her pillow and once this happened she states that the ear seemed to improve. She states that within the last 2 days she has noted some fullness with a little ache in the ear. Patient is set to have another surgery on her foot as she had a failed fusion. Patient also states that the past several months that she has had some pains in the left chest / breast area. She states that she has not noticed this with activity. She states that she feels like t (more content not included)... Normal [facility] Internal Medicine Office Vis iton 03-07-2024 Internal Medicine Office Visit [facility] [address] [place] [address] OFFICE VISIT Date of Service: 03/07/24 MR#: [id number] Acct: [id number] Name: ISAK HARVEY García Rep #: [id number] : 1970 Provider: SHEILA Burch Age/Sex: 53/F [place] [facility] [place] Status: Signed Intake Vital Signs 11/15/23 15:52 03/07/24 12:32 Height 5 ft 4 in 5 ft 4 in Weight: 156 lb 4 oz 162 lb 4 oz BMI 26.8 27.8 BP 136/60 H 118/78 Blood Pressure Location Lt brachial Rt brachial Position Sitting Sitting Respiration 16 16 Pulse 82 71 Pulse Source Monitor Monitor Temp 97.7 F L 99.1 F Temp Source Temporal Temporal Pulse Oximetry (%) 98 99 Oxygen Delivery Method room air room air Intake Visit Reasons: ACUTE -6 wk FU Chief Complaint: medication review 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: No Accompanied by: Self Is patient in pain?: Yes Pain scale (1-10): 8 Pain Scale - Faces (1-5): 5 Allergies tramadol Allergy (Verified 03/07/24 12:30) Other Medications ???Medication ???Instructions ???Recorded ???Confirmed ???Type hydrocodone 7.5 mg-acetaminophen 1 tab PO 4X/DAY PRN pain 02/16/17 03/07/24 History 325 mg tablet ascorbic acid (vitamin C) 500 mg 500 mg PO DAILY 04/28/19 03/07/24 History capsule pregabalin 75 mg capsule 75 mg PO BID 05/06/19 03/07/24 His tory albuterol sulfate 90 mcg/actuation 2 inh inhalation Q6H PRN shortne ss 05/07/19 03/07/24 Rx breath activated powder inhaler of breath or wheezing #1 ea celecoxib 200 mg capsule 200 mg PO DAILY 06/11/20 03/07/24 History budesonide-formoterol HFA 80 2 puff inhalation BID PRN 11/02/21 03/07/24 History mcg-4.5 mcg/actuation aerosol Bronchospasm inhaler (Symbicort) tizanidine 4 mg tablet 4 mg PO QHS PRN muscle spasticity 04/18/23 03/07/24 History acetaminophen 500 mg capsule 500 mg PO Q6H PRN pain #30 caps 03/07/24 Rx docusate sodium 100 mg capsule 100 mg PO BID #14 caps 04/27/23 Rx enoxaparin 40 mg/0.4 mL 40 mg (0.4 mL) subcut DAILY #12 mL 04/27/23 03/07/24 Rx subcutaneous syringe (Lovenox) ondansetron 4 mg disintegrating 4 mg PO Q8H PRN nausea and 4 03/07/24 Rx tablet vomiting #12 tabs duloxetine 20 mg capsule,delayed 20 mg PO BID #60 caps 02/04/24 Rx release Have you fallen in the past year?: Yes (3 weeks fell down 2 steps really painful with back) Nurse's Note: back pain lower lumbar PFSH Medical History Health care maintenance Chronic pain Anxiety and depression Loose, teeth Teeth missing MRSA infection Cancer Anxiety Chronic cough Smoker History of edema Muscular abdominal pain in left upper quadrant Right foot pain Screening for thyroid disorder Scoliosis History of abscess of skin and subcutaneous tissue Cervical cancer Tubal Back pain Knee pain Fatigue Arthritis Surgical History Hx of hernia repair History of knee replacement History of arthroscopic knee surgery History of hysterectomy Family History Father Diabetes CVA (cerebral vascular accident) Sister Ovarian cancer Son , at 6 weeks - CHF Heart disease Other Cancer Social History Smoking Status: Current some day smoker tobacco type: cigarettes alcohol intake: current alcohol intake frequency: holidays/special occasions only substance use type: does not use what type of physical activity do you participate in: walking HPI HPI Chief Complaint: medication review Details: ISAK HARVEY, is a 53 F who presents to the office today for recheck of her duloxetine. Patient was started on the medication back in November for combination of her anxiety as well as her chronic pains. She does see pain management for chronic back pains. She does receive injections as well as [place] for her pains as well as a muscle relaxer. She states that she has not noticed any obvious side effects from the medication since starting it. She has a history of feeling fatigued as well as sweating. Patient did apply for disability and thus did have a disability evaluation with a physician in [place] Patient states that she did have a ground levels fall on the stairs where she landed on her buttocks. She states that this incident stirred up her back. She did have an X-ray about a week later (Billy) and did not hear anything from that Patient is currently a smoker and has for 37 years now. She used to smoke 1 ppd but has decreased over time to where now she is about 1/2 ppd. ROS Const Constitutional: No body ache, excessive sweating, fatigue, fever(s), frequent falls, headache(s), snoring, weakness, viviane (more content not included)... Normal [facility] XR ELBOW TWO VIEWS LEFTon XR ELBOW TWO VIEWS LEFT ORIGINAL EXAMINATION: TWO XRAY VIEWS OF THE LEFT ELBOW 02/20/2024 4:02 pm COMPARISON: None. HISTORY: ORDERING SYSTEM PROVIDED HISTORY: Reason for Exam: LEFT ELBOW PAIN FINDINGS: No acute fracture or dislocation. The joint spaces are well maintained. No aggressive osseous lesions. IMPRESSION: No acute radiographic findings. I have personally reviewed the images of this examination and agree with the resident's findings and interpretation. Interpreted by: Kaden Esquivel Preliminary Report By: Blayne Bates MD Electronically signed By Kaden Esquivel Dictated Date: 02/21/2024 2:10:24 PM Prelim Date: 02/21/2024 4:48:30 PM Sign Date: 02/21/2024 4:48:30 PM Ordering Provider: [facility] REFERRING [facility] MAIN XR SPINE LUMBOSACRAL 2 OR 3 VIEWSon 02-21-2024 XR SPINE LUMBOSACRAL 2 OR 3 VIEWS ORIGINAL EXAMINATION: 2 XRAY VIEWS OF THE LUMBAR SPINE02/20/2024 4:03 pm COMPARISON: None HISTORY: ORDERING SYSTEM PROVIDED HISTORY: Reason for Exam: LOW BACK PAIN FINDINGS: Alignment is within normal limits. Vertebral body heights are well maintained. Disc space heights are well maintained. Mild marginal endplate degenerative changes. Mild facet arthropathy of the lower lumbar spine. No aggressive osseous lesions. Surgical clips in the pelvis. SI joints are symmetric. IMPRESSION: No compression deformity or significant listhesis. Mild degenerative changes as above. I have personally reviewed the images of this examination and agree with the resident's findings and interpretation. Interpreted by: Kaden Esquivel Preliminary Report By: Blayne Bates MD Electronically signed By Kaden Esquivel Dictated Date: 02/21/2024 2:28:50 PM Prelim Date: 02/21/2024 4:54:28 PM Sign Date: 02/21/2024 4:54:28 PM Ordering Provider: [facility] RE[facility]ERRING [facility] MAIN Extremity Lower without Cont raon 01-11-2024 Extremity Lower without Contra [facility] Imaging Services [address] [place] [id number] Extremity Lower without Contra MR#: [id number] Acct: [id number] Name: ISAK HARVEY Rep #: [id number] : 1970 F 53 From: Junito Robles MD PCP: Dr. Laina Marinelli MD Status: REG CLI Study: Extremity Lower without Contra Date of Exam: 03/13/23 Exam# [id number] Ordering Dr: Kaden Flower DPM [id number] STUDY: CT RIGHT FOOT REASON FOR EXAM: Female, 53 years old. RIGHT FOOT PAIN RADIATION DOSAGE (If Supplied By Facility): CTDIvol = ( 15.35 ) mGy, DLP = ( 378.01 ) mGycm TECHNIQUE: Thin section transaxial imaging of the right foot was obtained, with sagittal and coronal reconstructed images. Individualized dose optimization techniques were used for this CT. COMPARISON: None. FINDINGS: Intact talus, calcaneus, and tarsal bones. There is a small plantar calcaneal spur. Normal visualized tibiotalar, subtalar, talonavicular, and calcaneocuboid articulations. 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 There is dorsal fusion hardware across the first through third tarsometatarsal joints. Normal metatarsophalangeal joint of the great toe. Normal tibial and fibular sesamoid bones. Normal interphalangeal joint of the great toe. Normal phalanges of the great toe. Normal second through fifth metatarsophalangeal joints. Normal interphalangeal joints and phalanges of the lesser toes. The soft tissue structures are unremarkable. There is no demonstrated acute fracture. 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 Dorsal fusion hardware across the first through third tarsometatarsal joints. Small plantar calcaneal spur. Electronically Signed: Junito Robles MD at 16:02 EST Reading Location ID and State: [facility] / [place] , Service support , CC: DPFredo Flower; Dr. Laina Marinelli MD Bell Staff: Signed Normal [facility] SCRN MAMM (CAD)W/VIDHYA Guajardo n 11-21-2023 SCRN MAMM (CAD)W/VIDHYAKristal [facility] Imaging Services [address] [place] [address] SCRN MAMM (CAD)/VIDHYA MONET MR#: [id number] Acct: [id number] Name: ISAK HARVEY Rep #: [id number] : 1970 F 53 From: Collin Leach MD PCP: Dr. Laina Marinelli MD Status: REG CLI Study: SCRN MAMM (CAD)W/VIDHYA BILAT Date of Exam: 11/05 07/29 Exam# [id number] Ordering Dr: Laina Marinelli MD [id number] MAMMOGRAPHY - BILATERAL SCREENING 3-D TOMOSYNTHESIS REASON FOR EXAM: Female, 53 years old. Breast Cancer Screening PERTINENT HISTORY: No significant family history. TECHNIQUE: 2-D mammograms and 3-D Tomosynthesis of the breast (s) were performed. CAD was performed. COMPARISON: None. FINDINGS: The breast composition is composed of scattered fibroglandular density. Scattered benign calcifications are seen. No dense spiculated masses or suspicious microcalcifications are identified. No architectural distortion is identified. There is no skin thickening or retraction. There has been no significant change since the prior study. BI/SCRN MAMM (CAD)W/VIDHYA BILAT IMPRESSION: No mammographic signs of malignancy. Routine yearly mammograms recommended. ASSESSMENT CATEGORY: BIRADS Category 1: Negative. A letter regarding these results will be sent to the patient by the facility within 30 days. FOLLOW UP RECOMMENDATION: Yearly follow up mammogram recommended. (A) Approximately 10% of breast cancers are not detected by mammography. A normal mammogram should not delay biopsy of a clinically suspicious abnormality. Electronically Signed: Collin Leach MD at 14:13 EDT , CC: Dr. Laina Marinelli MD Bell Staff: Signed Normal [facility] CBC W/Diff, Automatedon 11-05 Absolute Lymph 1.64 X10 3/uL Normal 0.83-4.51 [facility] Comment on above: Performed By: #### L 100.0100, L501.9520, L500.4050, L506.0400 #### [facility] [address] [place], [address] Absolute Neut 3.9 X10 3/uL Normal 2.0-7.7 [facility] Comment on above: Performed By: #### L 100.0100, L501.9520, L500.4050, L506.0400 #### [facility] [address] [place], [address] Basophils/100 WBC (Bld) 0.6 % Normal 0-1 [facility] Comment on above: Performed By: #### L 100.0100, L501.9520, L500.4050, L506.0400 #### [facility] [address] [place], [address] Eosinophils/100 WBC (Bld) 1.4 % Normal 0-5 [facility] Comment on above: Performed By: #### L 100.0100, L501.9520, L500.4050, L506.0400 #### [facility] [address] [place], [address] Erythrocyte distribution width (RBC) [Ratio] 12.5 % Normal 11.6-14.6 [facility] Comment on above: Performed By: #### L 100.0100, L501.9520, L500.4050, L506.0400 #### [facility] [address] [place], [address] Hematocrit (Bld) [Volume fraction] 40.7 % Normal 37-47 [facility] Comment on above: Performed By: #### L 100.0100, L501.9520, L500.4050, L506.0400 #### [facility] [address] [place], [address] Hemoglobin (Bld) [Mass/Vol] 13.1 g/dL Normal 12.0-15.0 [facility] Comment on above: Performed By: #### L 100.0100, L501.9520, L500.4050, L506.0400 #### [facility] [address] [place], [address] IG% 0.300 Normal 0.0-0.9 [facility] Comment on above: Result Comment: IG% - Immature Granulocytes (promyelocytes, myelocytes and metamyelocytes) > 1% indicates that a LEFT SHIFT is Present. Performed By: #### L 100.0100, L501.9520, L500.4050, L506.0400 #### [facility] [address] [place], [address] Lymphocytes/100 WBC (Bld) 25.4 % Normal 19-41 [facility] Comment on above: Performed By: #### L 100.0100, L501.9520, L500.4050, L506.0400 #### [facility] [address] [place], [address] MCH (RBC) [Entitic mass] 30.8 pg Normal 27.0-32.0 [facility] Comment on above: Performed By: #### L 100.0100, L501.9520, L500.4050, L506.0400 #### [facility] [address] [place], [address] MCHC (RBC) [Mass/Vol] 32.2 g/dL Normal 32-[address] [facility] Comment on above: Performed By: #### L 100.0100, L501.9520, L500.4050, L506.0400 #### [facility] [address] [place], [address] MCV (RBC) [Entitic vol] 95.5 fL Normal 81-99 [facility] Comment on above: Performed By: #### L 100.0100, L501.9520, L500.4050, L506.0400 #### [facility] [address] [place], [address] Monocytes/100 WBC (Bld) 11.3 % High 0-10 [facility] Comment on above: Performed By: #### L 100.0100, L501.9520, L500.4050, L506.0400 #### [facility] [address] [place], [address] Neutrophils/100 WBC (Bld) 61.0 % Normal 47-70 [facility] Comment on above: Performed By: #### L 100.0100, L501.9520, L500.4050, L506.0400 #### [facility] [address] [place], [address] Nucleated RBC (Bld) [#/Vol] 0 10*3/uL Normal 0-5 [facility] Comment on above: Performed By: #### L 100.0100, L501.9520, L500.4050, L506.0400 #### [facility] [address] [place], [address] Platelet mean volume (Bld) [Entitic vol] 10.0 fL Normal 6.2-12.0 [facility] Comment on above: Performed By: #### L 100.0100, L501.9520, L500.4050, L506.0400 #### [facility] [address] [place], [address] Platelets (Bld) [#/Vol] 273 10*3/uL Normal 150-450 [facility] Comment on above: Performed By: #### L 100.0100, L501.9520, L500.4050, L506.0400 #### [facility] [address] [place], [address] RBC (Bld) [#/Vol] 4.26 10*6/uL Normal 4.2-5.4 [facility] Comment on above: Performed By: #### L 100.0100, L501.9520, L500.4050, L506.0400 #### [facility] [address] [place], [address] RDW SD 43.9 fl Normal 35.1-43.9 [facility] Comment on above: Performed By: #### L 100.0100, L501.9520, L500.4050, L506.0400 #### [facility] [address] [place], [address] WBC (Bld) [#/Vol] 6.5 10*3/uL Normal 4.4-11.0 [facility] Comment on above: Performed By: #### L 100.0100, L501.9520, L500.4050, L506.0400 #### [facility] [address] [place], [address] Comprehensive Metabolic [facility] 11-15-2023 Albumin [Mass/Vol] 3.5 g/dL Normal 3.2-5.0 [facility] Comment on above: Performed By: #### L 100.0100, L501.9520, L500.4050, L506.0400 #### [facility] [address] [place], [address] Albumin/Globulin [Mass ratio] 0.9 {ratio} Normal 0.9-2.4 [facility] Comment on above: Performed By: #### L 100.0100, L501.9520, L500.4050, L506.0400 #### [facility] [address] [place], [address] ALK P 89 U/L Normal 45-117 [facility] Comment on above: Performed By: #### L 100.0100, L501.9520, L500.4050, L506.0400 #### [facility] [address] [place], [address] ALT [Catalytic activity/Vol] 10 U/L Low 13-56 [facility] Comment on above: Performed By: #### L 100.0100, L501.9520, L500.4050, L506.0400 #### [facility] [address] [place], [address] AST [Catalytic activity/Vol] 11 U/L Low 15-37 [facility] Comment on above: Performed By: #### L 100.0100, L501.9520, L500.4050, L506.0400 #### [facility] [address] [place], [address] Bilirubin [Mass/Vol] 0.40 mg/dL Normal 0.20-1.00 [facility] Comment on above: Result Comment: For patients on eltrombopag therapy, use of Dimension Brooks TBIL is not recommended. Performed By: #### L 100.0100, L501.9520, L500.4050, L506.0400 #### [facility] [address] [place], [address] BUN/CRE 11.5 RATIO Normal 10-20 [facility] Comment on above: Performed By: #### L 100.0100, L501.9520, L500.4050, L506.0400 #### [facility] [address] [place], [address] CA,Total 9.3 mg/dL Normal 8.5-10.1 [facility] Comment on above: Performed By: #### L 100.0100, L501.9520, L500.4050, L506.0400 #### [facility] [address] [place], [address] Chloride [Moles/Vol] 103 mmol/L Normal 98-107 [facility] Comment on above: Performed By: #### L 100.0100, L501.9520, L500.4050, L506.0400 #### [facility] [address] [place], [address] CO2 [Moles/Vol] 29.0 mmol/L Normal 21.0-32.0 [facility] Comment on above: Performed By: #### L 100.0100, L501.9520, L500.4050, L506.0400 #### [facility] [address] [place], [address] Creatinine [Mass/Vol] 0.69 mg/dL Normal 0.55-1.[address] [facility] Comment on above: Result Comment: The validity of the calculated GFR GFRAA in patients over 70 years has not been determined. Clinical correlation is essential. Performed By: #### L 100.0100, L501.9520, L500.4050, L506.0400 #### [facility] [address] [place], [address] EST GFR - AA 113 mL/min Normal >60 [facility] Comment on above: Result Comment: Afri can Ecuadorean GFR Calc Performed By: #### L 100.0100, L501.9520, L500.4050, L506.0400 #### [facility] [address] [place], [address] GAP 4 Low 5-15 [facility] Comment on above: Performed By: #### L 100.0100, L501.9520, L500.4050, L506.0400 #### [facility] [address] [place], [address] GFR/1.73 sq M.predicted among non-blacks MDRD (S/P/Bld) [Vol rate/Area] 93 mL/min/{1.73_m2} Normal >60 [facility] Comment on above: Result Comment: Non- GFR Calc Performed By: #### L 100.0100, L501.9520, L500.4050, L506.0400 #### [facility] [address] [place], [address] Globulin (S) [Mass/Vol] 4.0 g/dL Normal 2.2-4.2 [facility] Comment on above: Performed By: #### L 100.0100, L501.9520, L500.4050, L506.0400 #### [facility] [address] [place], [address] Glucose [Mass/Vol] 110 mg/dL High 74-106 [facility] Comment on above: Result Comment: Fast ing Glucose result from 100 to 125 mg/dL suggests IMPAIRED HOMEOSTASIS per A.D.A. criteria. Performed By: #### L 100.0100, L501.9520, L500.4050, L506.0400 #### [facility] [address] [place], [address] Potassium [Moles/Vol] 3.5 mmol/L Normal 3.5-5.[address] [facility] Comment on above: Performed By: #### L 100.0100, L501.9520, L500.4050, L506.0400 #### [facility] [address] [place], [address] Sodium [Moles/Vol] 136 mmol/L Normal 136-145 [facility] Comment on above: Performed By: #### L 100.0100, L501.9520, L500.4050, L506.0400 #### [facility] [address] [place], [address] T PROT 7.5 g/dL Normal 6.4-8.2 [facility] Comment on above: Performed By: #### L 100.0100, L501.9520, L500.4050, L506.0400 #### [facility] [address] [place], [address] Urea nitrogen [Mass/Vol] 8 mg/dL Normal 7-18 [facility] Comment on above: Performed By: #### L 100.0100, L501.9520, L500.4050, L506.0400 #### [facility] [address] [place], [address] Internal Medicine Office Vis iton 11-15-2023 Internal Medicine Office Visit [facility] [address] [place], [place] [address] OFFICE VISIT Date of Service: 11/15/23 MR#: [id number] Acct: [id number] Name: ISAK HARVEY Rep #: [id number] : 1970 Provider: Dr. 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: No Accompanied by: Self Is patient in pain?: Yes (back / left foot ) Pain scale (1-10): 7 Allergies tramadol Allergy (Verified 11/15/23 15:45) Other Medications ???Medication ???Instructions ???Recorded ???Confirmed ???Type hydrocodone 7.5 mg-acetaminophen 1 tab PO 4X/DAY PRN pain 02/16/17 11/15/23 History 325 mg tablet ascorbic acid (vitamin C) 500 mg 500 mg PO DAILY 04/28/19 11/15/23 History capsule pregabalin 75 mg capsule 75 mg PO BID 05/06/19 11/15/23 History albuterol sulfate 90 mcg/actuation 2 inh inhalation Q6H PRN shortness 05/07/19 11/15/23 Rx breath activated powder inhaler of breath or wheezing #1 ea celecoxib 200 mg capsule 200 mg PO DAILY 06/11/20 11/15/23 History budesonide-formoterol HFA 80 2 puff inhalation BID PRN 11/02/21 11/15/23 History mcg-4.5 mcg/actuation aerosol Bronchospasm inhaler (Symbicort) tizanidine 4 mg tablet 4 mg PO QHS PRN muscle spasticity 04/18/23 11/15/23 History acetaminophen 500 mg capsule 500 mg PO Q6H PRN pain #30 caps 04/27/23 11/15/23 Rx docusate sodium 100 mg capsule 100 mg PO BID #14 caps 04/27/23 11/15/23 Rx enoxaparin 40 mg/0.4 mL 40 mg (0.4 mL) subcut DAILY #12 mL 04/27/23 11/15/23 Rx subcutaneous syringe (Lovenox) ondansetron 4 mg disintegrating 4 mg PO Q8H PRN nausea and 04/27/23 11/15/23 Rx tablet vomiting #12 tabs duloxetine 20 mg capsule,delayed 20 mg PO BID #60 caps 11/15/23 11/15/23 Rx release PFSH Medical History (Updated 11/15/23 @ 16:[address] Laina Marinelli MD) Health care maintenance Chronic pain Anxiety and depression Loose, teeth Teeth missing MRSA infection Cancer Anxiety Chronic cough Smoker History of edema Muscular abdominal pain in left upper quadrant Right foot pain Screening for thyroid disorder Scoliosis History of abscess of skin and subcutaneous tissue Cervical cancer Tubal Back pain Knee pain Fatigue Arthritis Surgical History Hx of hernia repair History of knee replacement History of arthroscopic knee surgery History of hysterectomy Family History Father Diabetes CVA (cerebral vascular accident) Sister Ovarian cancer Son , at 6 weeks - CHF Heart disease Other Cancer Social History Smoking Status: Current some day smoker tobacco type: cigarettes alcohol intake: current alcohol intake frequency: holidays/special occasions only substance use type: does not use what type of physical activity do you participate in: walking HPI HPI Chief Complaint: anxiety Details: ISAK HARVEY, is a 53 F who presents to the office today with some concerns. She reports increased anxiety over the last couple of months. Status post foot surgery a few months ago which has not progressed as expected. Ongoing pain in her foot and back. Worsening anxiety due to limitations. Prior history of anxiety and she states that she was on medication in the past but cannot remember clearly what she was on. Does not believe that she was on duloxetine. Other chronic medical conditions are stable. ROS Const Constitutional: No body ache, chills, excessive sweating, fatigue, fever(s), frequent falls, headache(s), snoring, weakness or change in appetite Eyes Eyes: No blurry vision, change in vision, bulging eyes, floaters, visual disturbances, eye pain or Light sensitivity ENT ENT: No abnormal hearing, ear or mastoid pain, tinnitus, balance problems, nosebleed/epistaxis, nasal congestion, headache(s), neck pain or sore throat Resp Respiratory: No cough, excessive phlegm production, pain on inspiration, shortness of breath, snoring or wheezing Cardio Cardiology: No chest pain at rest, chest pain with exertion, excessive sweating, dyspnea on exertion, lightheadedness, orthopnea or palpitations Gastro GI: No abdominal pain, change in bowel habits, constipation, cramping, diarrhea, nausea/dyspepsia or vomiting Genitourinary-Female: No burning urinatio (more content not included)... Normal [facility] T4 Free Directon 11-15-2023 T4 FREE DIRECT 1.06 ng/dL Normal 0.76-1.46 [facility] Comment on above: Performed By: #### L 100.0100, L501.9520, L500.4050, L506.0400 #### [facility] [address] [place], [place], [id number] Thyroid Stim Hormone (TSH)on 11-15-2023 TSH 0.689 uIU/mL Normal 0.358-3.740 [facility] Comment on above: Performed By: #### L 100.0100, L501.9520, L500.4050, L506.0400 #### [facility] [address] [place], [place], [address] Bone Scan Limited Areaon Bone Scan Limited Area [facility] Imaging Services [address] [place] [address] Bone Scan Limited Area MR#: [id number] Acct: [id number] Name: ISAK HARVEY Rep #: [id number] : 1970 F 53 From: [facility] [place] PCP: Dr. Laina Marinelli MD Status: REG CLI Study: Bone Scan Limited Area Date of Exam: 11/13/23 Exam# [id number] Ordering Dr: Kaden Flower DPFredo [id number] INDICATION: PAIN IN RIGHT FOOT, SURGERY WITH PLATES AND SCREWS APRIL 2023. EXAMINATION: NUCLEAR MEDICINE BONE SCAN - Nuclear medicine three-phase bone scan of the feet. TECHNIQUE: NM Bone 3 phase bone scan of the feet was obtained. Radiopharmaceutical Type, Dose and Route: 26.5 mCi of Tc99m MDP, IV administration. Imaging: Mediastinal images, blood pool and delayed images were obtained. COMPARISON/CORRELATED STUDIES: CT scan of the foot of 09/07/2023. FINDINGS: The flow study demonstrates increased flow to the region of the mid foot. The second phase blood pool images demonstrate persistent focal area of increased uptake in the midfoot region corresponding to the blood pool images. The delayed third phase images demonstrate again persistent increased uptake in the mid foot region corresponding to the region of surgery seen on the CT scan. NM/Bone Scan Limited Area IMPRESSION: Increased uptake on all 3 phases in the region of the right midfoot corresponding to the surgical region could represent postoperative changes or osteomyelitis. Electronically Signed: Dwaine Arvizu MD at 15:04 EDT , CC: SHAYY Flower; Dr. Laina Marinelli MD Bell Staff: Signed Normal [facility] Basophil percentageOrdered B y: Ashleigh Maliha on 04-25-2023 Bilirubin [Mass/Vol] 0.50 mg/dL 0.20-1.00 [facility] Comment on above: For patients on eltr ombopag therapy, use of Dimension Brooks TBIL is not recommended. Chloride [Moles/Vol] 107 mmol/L 98-107 [facility] Glucose [Mass/Vol] 93 mg/dL 74-106 [facility] Potassium [Moles/Vol] 4.0 mmol/L 3.5-5.[address] [facility] Protein [Mass/Vol] 7.4 g/dL 6.4-8.2 [facility] Sodium [Moles/Vol] 139 mmol/L 136-145 [facility] Iron measurement (mass/mass) Ordered By: Ashleigh Jett on 04-25-2023 Iron (Unsp spec) [Mass/Mass] 143 ug/dL 50-170 [facility] Laboratory - Chemistry and C hemistry - challengeOrdered By: Ashleigh Jett on 04-25-2023 Albumin/Globulin [Mass ratio] 1.0 {ratio} 0.9-2.4 [facility] ALP [Catalytic activity/Vol] 85 U/L 45-117 [facility] ALT [Catalytic activity/Vol] 17 U/L 13-56 [facility] CO2 [Moles/Vol] 27.0 mmol/L 21.0-32.0 [facility] Ferritin [Mass/Vol] 128 ng/mL 8-252 [facility] Globulin (S) [Mass/Vol] 3.7 g/dL 2.2-4.2 [facility] Urea nitrogen/Creatinine [Mass ratio] 12.2 mg/mg 10-20 [facility] No Panel InformationOrdered By: Ashleigh Jett on 04-25-2023 Estimated GFR (MDRD) Amer 140 mL/min >60 [facility] Comment on above: GFR Calc Estimated GFR (MDRD) Non-Af Amer 116 mL/min >60 [facility] Comment on above: Non- GFR Calc Total Iron Binding Capacity 356 ug/dL 250-450 [facility] Vitamin D 25-Hydroxy 23.4 ng/mL [facility] Comment on above: Vitamin D 25(OH) Sta tus Range Deficiency <20 ng/mL (50nmol/L) Insufficiency 20 - 30 ng/mL (50 - 75 nmol/L) Sufficiency 30 - 100 ng/mL (75 - 250 nmol/L) Toxicity >100 ng/mL (>250 nmol/L) Serum or plasma calcium michael urement (mass/volume)Ordered By: Ashleigh Jett on 04-25-2023 Calcium [Mass/Vol] 9.2 mg/dL 8.5-10.1 [facility] Serum or plasma creatinine m easurement (mass/volume)Ordered By: Ashleigh Jett on 04-25-2023 Creatinine [Mass/Vol] 0.58 mg/dL 0.55-1.[address] [facility] Comment on above: The validity of the calculated GFR & GFRAA in patients over 70 years has not been determined. Clinical correlation is essential. Serum or plasma urea nitroge n measurement (mass/volume)Ordered By: Ashleigh Jett on 04-25-2023 Urea nitrogen [Mass/Vol] 7 mg/dL 7-18 [facility] Thin prep Papanicolaou smear with manual screeningOrdered By: Ashleigh Jett on 04-25-2023 Thin prep Papanicolaou smear with manual screening 3.7 g/dL 3.2-5.0 [facility] Thin prep Papanicolaou smear with manual screening 13 U/L 15-37 [facility] Thin prep Papanicolaou smear with manual screening 5 5-15 [facility] Serum or plasma thyroid stim ulating hormone (TSH) measurement (units/volume)Ordered By: Laina Marinelli on 03-12-2023 TSH Qn 1.13 uIU/mL 0.358-3.74 [facility] Thin prep Papanicolaou smear with manual screeningOrdered By: Laina Marinelli on 03-12-2023 Thin prep Papanicolaou smear with manual screening 1.19 ng/dL 0.76-1.46 [facility] Absolute lymphocyte countOrd ered By: Onesimo Gomez on 10-16-2022 Lymphocytes Auto (Unsp spec) [#/Vol] 0.89 10*3/uL 0.83-4.51 [facility] Basophil percentageOrdered B y: Onesimo Gomez on 10-16-2022 Basophils/100 WBC (Bld) 0.5 % 0-1 [facility] Chloride [Moles/Vol] 110 mmol/L 98-107 [facility] Eosinophils/100 WBC (Bld) 0.8 % 0-5 [facility] Glucose [Mass/Vol] 105 mg/dL 74-106 [facility] Comment on above: Fasting Glucose resu lt from 100 to 125 mg/dL suggests IMPAIRED HOMEOSTASIS per A.D.A. criteria. Neutrophils (Bld) [#/Vol] 5.0 10*3/uL 2.0-7.7 [facility] Neutrophils/100 WBC (Bld) 75.5 % 47-70 [facility] Potassium [Moles/Vol] 4.0 mmol/L 3.5-5.[address] [facility] Sodium [Moles/Vol] 145 mmol/L 136-145 [facility] WBC (Bld) [#/Vol] 6.6 10*3/uL 4.4-11.0 [facility] Blood erythrocytes count (nu mber/volume)Ordered By: Onesimo Gomez on 10-16-2022 RBC (Bld) [#/Vol] 4.04 10*6/uL 4.2-5.4 [facility] Blood hemoglobin measurement (mass/volume)Ordered By: Onesimo Gomez on 10-16-2022 Hemoglobin (Bld) [Mass/Vol] 12.9 g/dL 12.0-15.0 [facility] Blood lymphocytes/100 leukoc ytesOrdered By: Onesimo Gomez on 10-16-2022 Lymphocytes/100 WBC (Bld) 13.5 % 19-41 [facility] Blood monocytes/100 leukocyt esOrdered By: Onesimo Gomez on 10-16-2022 Monocytes/100 WBC (Bld) 9.1 % 0-10 [facility] Blood platelet mean volumeOr dered By: Onesimo Gomez on 10-16-2022 Platelet mean volume (Bld) [Entitic vol] 9.8 fL 6.2-12.0 [facility] Determination of erythrocyte mean corpuscular volume (MCV)Ordered By: Onesimo Gomez on 10-16-2022 MCV (RBC) [Entitic vol] 97.5 fL 81-99 [facility] Hematocrit Auto (Bld) [Volum e fraction]Ordered By: Onesimo Gomez on 10-16-2022 Hematocrit (Bld) [Volume fraction] 39.4 % 37-47 [facility] Laboratory - Chemistry and C hemistry - challengeOrdered By: Onesimo Gomez on 10-16-2022 CO2 [Moles/Vol] 31.0 mmol/L 21.0-32.0 [facility] Urea nitrogen/Creatinine [Mass ratio] 14.1 mg/mg 10-20 [facility] Laboratory - Hematology and Cell countsOrdered By: Onesimo Gomez on 10-16-2022 Erythrocyte distribution width (RBC) [Entitic vol] 44.6 fL 35.1-43.9 [facility] Erythrocyte distribution width (RBC) [Ratio] 12.5 % 11.6-14.6 [facility] Immature granulocytes/100 WBC (Bld) 0.600 % 0.0-0.9 [facility] Comment on above: IG% - Immature Granu locytes (promyelocytes, myelocytes and metamyelocytes) > 1% indicates that a LEFT SHIFT is Present. MCH (RBC) [Entitic mass] 31.9 pg 27.0-32.0 [facility] Nucleated RBC/100 WBC (Bld) [Ratio] 0 % 0-5 [facility] [facility] MCHC Auto (RBC) [Mass/Vol]Or dered By: Onesimo Gomez on 10-16-2022 MCHC (RBC) [Mass/Vol] 32.7 g/dL 32-[address] [facility] No Panel InformationOrdered By: Onesimo Gomez on 10-16-2022 D-Dimer Quantitative (PE/DVT) 0.29 FEU/ug/m 0.27-0.49 [facility] Comment on above: NORMAL D-Dimer level (<0.50) indicates no DVT or PE. Estimated Creatinine Clearance Calc 78.22 ml/min [facility] Estimated GFR (MDRD) Amer 110 mL/min >60 [facility] Comment on above: GFR Calc Estimated GFR (MDRD) Non-Af Amer 91 mL/min >60 [facility] Comment on above: Non- GFR Calc Troponin I High Sensitivity 4 pg/mL 3.0-54.0 [facility] Comment on above: Please Note: New Fartun t Units and Gender Specific Reference Ranges. For more information see Policy Stat Procedure [facility] High Sensitivity Troponin (TNIH) and attachments. Platelets bldOrdered By: Kimberly Gomez on 10-16-2022 Platelets (Bld) [#/Vol] 252 10*3/uL 150-450 [facility] Serum or plasma calcium michael urement (mass/volume)Ordered By: Onesimo Gomez on 10-16-2022 Calcium [Mass/Vol] 8.8 mg/dL 8.5-10.1 [facility] Serum or plasma creatinine m easurement (mass/volume)Ordered By: Onesimo Gomez on 10-16-2022 Creatinine [Mass/Vol] 0.71 mg/dL 0.55-1.[address] [facility] Comment on above: The validity of the calculated GFR & GFRAA in patients over 70 years has not been determined. Clinical correlation is essential. Serum or plasma urea nitroge n measurement (mass/volume)Ordered By: Onesimo Gomez on 10-16-2022 Urea nitrogen [Mass/Vol] 10 mg/dL 7-18 [facility] Thin prep Papanicolaou smear with manual screeningOrdered By: Onesimo Gomez on 10-16-2022 Thin prep Papanicolaou smear with manual screening 4 5-15 [facility] CT ABD/PEL W IVCONon 023 CT ABD/PEL W IVCON * * *Final Report* * * DATE OF EXAM: Mar 31 2022 8:54AM [facility] 0530 - CT ABD/PEL W IVCON / PROCEDURE REASON: multiple diagnoses * * * * Physician Interpretation * * * * EXAMINATION: CT ABDOMEN AND PELVIS WITH IV CONTRAST CLINICAL HISTORY: Status post hernia repair TECHNIQUE: CT of the abdomen and pelvis was performed using standard technique, scanning from just above the dome of the diaphragm to the symphysis pubis. MQ: CTAP_3 Contrast: IV: 100 ml of Omnipaque 350 : ml of CT Radiation dose: Integrated Dose-length product (DLP) for this visit = 384 mGy*cm. CT Dose Reduction Employed: Automated exposure control(AEC) and iterative recon COMPARISON: None. RESULT: Liver: Tiny cyst in the right lobe of the liver measuring approximately 3 mm image 36. Hepatic steatosis is noted Biliary: No bile duct dilation. Gallbladder is grossly unremarkable Spleen: No mass. No splenomegaly. Pancreas: No mass or duct dilation. Adrenals: No mass. Kidneys: The kidneys enhance symmetrically. No hydronephrosis is seen GI tract: No dilation or wall thickening. Lymph nodes: No abdominal or pelvic lymphadenopathy. Mesentery/Peritoneum: No ascites or mass. Retroperitoneum: No mass. Vasculature: - Abdominal aorta and iliac arteries: Atherosclerotic calcifications without aneurysm. - Celiac and SMA: Patent without stenosis. - Portal venous system (SMV, splenic vein, portal vein and branches): Patent. - Hepatic veins: Patent. Pelvis: No mass, ascites or fluid collection. Bladder is grossly unremarkable. Uterus not visualized suggesting prior hysterectomy Bones/Soft Tissues: Small fluid collections are seen in the soft tissues of the abdominal wall. For example in the periumbilical region there is a 3.2 x 2.2 cm collection in transverse and AP dimensions image 61 and in the infraumbilical region there is a small fluid collection measuring approximately 3.5 x 1.2 cm. Lower thorax: No additional findings Russian History Professor (topogram) images: No additional findings. IMPRESSION: Small nonspecific fluid collections in the periumbilical subcutaneous fat with no extension into the peritoneal cavity. Hepatic steatosis. Bell Staff: DIMAS Transcribe Date/Time: Mar 31 2022 11:17A Dictated by : LIN CAMPOS MD This examination was interpreted and the report reviewed and electronically signed by: LIN CAMPOS MD on Mar 31 2022 11:21AM EST [id number] Normal [facility] CNCOon 03-15-2022 CNCO Letter Text Normal [facility] CNOVon 03-15-2022 CNOV Office Visit (AGGENS 1) ISAK HARVEY ([id number]) 1970 F Date Time Provider Department 03/15/22 9:15 AM CATARINO HAAS1 During your visit today, we recorded the following information about you: Pulse Blood pressure Weight Height 83/minute 135/93 74.8 kg 1.626 m Catarino Haas PA-C 10/16/2022 3:02 PM Addendum Catarino Haas PA-C Hepatobiliary Surgery [address] [facility], [address] [place] [address] SUBJECTIVE Isak Harvey is a 51 year old female here for a post op visit. The patient is s/p ventral hernia repair by Dr. Callejas on 02/08/2022. She saw Dr. Callejas for an initial post op visit on 02/21/2022 at which time she was continuing to have pain in the epigastric region. She states she feels as though the pain has improved slightly since her last visit, but it is still moderate in severity. She denies constipation, diarrhea, nausea, vomiting, fever/chills. She is on chronic pain medications, but she states the oxycodone helps better. The ROS, medical, surgical, family, and social history were reviewed by Catarino Haas PA-C OBJECTIVE BP 135/93 Pulse 83 Ht 162.6 cm (5' 4) Wt 74.8 kg (165 lb) SpO2 100% BMI 28.32 kg/m? BMI 28.32 kg/(m2) Physical Exam: General: Patient seated in no acute distress Respiratory: Breathing comfortably on room air Cardiovascular: Regular rate and rhythm Abdomen: Soft, diffusely tender, non distended. Incisions dry intact without erythema, edema or discharge. No sign of hernia recurrence. Neurologic: She is alert and oriented to person, place, and time. Plan S/p hernia repair The patient is now 5 weeks s/p ventral hernia repair and continuing to have moderate abdominal pain. She is requesting a refill of medication, but per her pharmacist, she is on chronic pain medication, and cannot have any further pain medication at this time. I told her it is not unexpected to have prolonged pain and healing time following this surgery. I will order a CT scan to check for any complications, though I am not concerned about infection. Will review results of scan with patient once completed. Informed her she will need to follow up with pain management for pain medication recommendations. All questions were answered to the patient's satisfaction and she is agreeable with the plan. Catarino Haas PA-C 03/20/2022 12:54 PM I spent a total of 30 minutes on the date of the service which included preparing to see the patient, [id number] patient care, completing clinical documentation, obtaining and/or reviewing separately obtained history, performing a medically appropriate examination, counseling and educating the patient/family/caregiv er, and ordering medications, tests, or procedures. Allergies As of Date: 03/15/2022 Noted Allergy Reaction TRAMADOL 11/04/2021 16 - Unknown Date Reviewed: 03/14/2022 Reviewed by: Stanford Callejas MD - Fully Assessed Reason for Visit: Post-Op Visit [1236] Cmt: Mrs. Harvey is here today for her s/p hernia repair. Primary Visit Diagnosis:S/P hernia repair [Z98.890, Z87.19] Other Visit Diagnosis:Umbilical hernia without obstruction or gangrene [K42.9] Order(s):CT ABD/PEL W IVCON [[id number]] Order #: [id number] FUTURE iv contrast (will be provided with radiology test)CT ABD/PEL -Inject, intravenously, once for 1 dose.No IV access, insert saline lock prior to the beginning of sedation, infusion, injection of imaging exam. Discontinue saline lock post exam. If Pt. has a central line or IVAD, may access for administration according to line specific nursing protocol. Once exam is complete flush line and de-access according to line specific nursing protocol in the CT contrast administration guidelines link.Disp: 1 EachRfl: 0 Prescriptions as of 10/16/2022 - HYDROcodone-Acetaminop hen (NORCO) 7.5-325 mg per tablet Take 1 tablet by mouth every 6 hours as needed. - iv contrast (will be provided with radiology test) CT ABD/PEL -Inject, intravenously, once for 1 dose.No IV access, insert saline lock prior to the beginning of sedation, infusion, injection of imaging exam. Discontinue saline lock post exam. If Pt. has a central line or IVAD, may access for administration according to line specific nursing protocol. Once exam is complete flush line and de-access according to line specific nursing protocol in the CT contrast administration guidelines link. - tiZANidine (ZANAFLEX) 4 mg tablet Take 1 tablet by mouth at bedtime as needed. - Nicotine 21-14-7 mg/24 hr ptds Apply 1 Patch as directed once daily for 14 days. - Ascorbic Acid 500 mg cpER Take 1 capsule by mouth once daily. - pregabalin (LYRICA) 75 mg capsule Take 75 mg by mouth twice daily. - albuterol sulfate 90 mcg/actuation breath activated powder inhaler Inhale 2 Puffs as instructed every 6 hours as needed for wheezing/shortness of breath. - fluti (more content not included)... Normal [facility] C[facility] Telephone (AG[facility]ENS) ISAK HARVEY ([id number]) 1970 F Date Time Provider Department 03/02/22 MARGARITA RIBEIRO1 During your visit today, we recorded the following information about you: Margarita Ribeiro RN 03/02/2022 9:58 AM Signed Patient Phone Call: Question Patient called in concerned about discomfort and burning sensation after hernia surgery on 02.08.2022. Pt states last week she didn't feel this way. I asked the pt if she is doing more, activity barker, this week versus last week and a definitive answer was not received. I encouraged the patient to listen to her body and dial back her activity based on her body's response-increased pain. I also instructed the patient that she can use an ice pack to the area and an abdominal binder for extra support to the area, which she states she was given. Pt conveyed an understanding and agreement to try the suggestions given and was encouraged to call with any further questions and/or concerns. Allergies As of Date: 03/02/2022 Noted Allergy Reaction TRAMADOL 11/04/2021 16 - Unknown Date Reviewed: 02/21/2022 Reviewed by: Ernestine Yeager MA - Fully Assessed Reason for Visit: Patient Question [4233] Prescriptions as of 03/02/2022 - oxyCODONE IR (ROXICODONE) 5 mg immediate release tablet Take 1 tablet by mouth every 6 hours as needed for pain. - tiZANidine (ZANAFLEX) 4 mg tablet Take 1 tablet by mouth at bedtime as needed. - Nicotine 21-14-7 mg/24 hr ptds Apply 1 Patch as directed once daily for 14 days. - Ascorbic Acid 500 mg cpER Take 1 capsule by mouth once daily. - pregabalin (LYRICA) 75 mg capsule Take 75 mg by mouth twice daily. - albuterol sulfate 90 mcg/actuation breath activated powder inhaler Inhale 2 Puffs as instructed every 6 hours as needed for wheezing/shortness of breath. - fluticasone propionate (FLOVENT HFA) 50 mcg/actuation inhaler Inhale 2 Puffs as instructed as needed. - celecoxib (CELEBREX) 200 mg capsule Take 200 mg by mouth once daily. Problem List As Of Date 03/02/2022 Noted Resolved Umbilical hernia without obstruction or gangren*11/08/2021 Ventral hernia, recurrent [K43.2] 02/08/2022 Encounter Status:Closed by RIBEIROJuly on 03/02/22 [facility] CNCOon 02-21-2022 CNCO Letter Text [facility] CNOVon 02-21-2022 CNOV Office Visit (AGGENS 1) ISAK HARVEY ([id number]) 1970 F Date Time Provider Department 02/21/22 1:45 PM STANFORD CALLEJAS1 During your visit today, we recorded the following information about you: Pulse Blood pressure Weight Height 92/minute 114/78 75.8 kg 1.626 m Stanford Callejas MD 03/14/2022 10:04 AM Signed Patient referred by: No referring provider defined for this encounter. Patient presents with: Post Op Follow Up: Mrs. Harvey is here today for a s/p incisional hernia. HPI: This is a post operative visit. 51-year-old female here for follow-up from a robotic hernia repair. She still having pain in the epigastric region. She has no nausea or vomiting. She denies fevers or chills. She has no diarrhea or constipation. She would like a refill for pain medication. PAST MEDICAL HISTORY Diagnosis Date Arthritis Back pain Cervical cancer (HCC) Fatigue Lab test positive for detection of COVID-19 virus 02/2021 Restless legs syndrome Scoliosis Tubal Ventral hernia PAST SURGICAL HISTORY Procedure Laterality Date OVARIAN CYSTECTOMY PAST SURGICAL HISTORY OF Left 2012 tumor side TOTAL ABDOM HYSTERECTOMY N/A TOTAL KNEE REPLACEMENT Left 2002 FAMILY HISTORY Problem Relation Age of Onset Osteoporosis Mother Hypertension Mother Diabetes Father other (CVA) Father Ovarian cancer Sister Social History Tobacco Use Smoking status: Former Packs/day: 0.50 Years: 20.00 Pack years: 10.00 Types: Cigarettes Quit date: 01/03/2022 Years since quittin.1 Smokeless tobacco: Never Substance Use Topics Alcohol use: Never Drug use: Never Current Outpatient Medications Medication Sig tiZANidine (ZANAFLEX) 4 mg tablet Take 1 tablet by mouth at bedtime as needed. Nicotine 21-14-7 mg/24 hr ptds Apply 1 Patch as directed once daily for 14 days. (Patient taking differently: Apply 1 Patch as directed as needed.) Ascorbic Acid 500 mg cpER Take 1 capsule by mouth once daily. pregabalin (LYRICA) 75 mg capsule Take 75 mg by mouth twice daily. albuterol sulfate 90 mcg/actuation breath activated powder inhaler Inhale 2 Puffs as instructed every 6 hours as needed for wheezing/shortness of breath. fluticasone propionate (FLOVENT HFA) 50 mcg/actuation inhaler Inhale 2 Puffs as instructed as needed. celecoxib (CELEBREX) 200 mg capsule Take 200 mg by mouth once daily. oxyCODONE IR (ROXICODONE) 5 mg immediate release tablet Take 1 tablet by mouth every 6 hours as needed for pain. No current facility-administered medications for this visit. ALLERGIES Allergen Reactions Tramadol Unknown REVIEW OF SYSTEMS: GENERAL: No weight loss, malaise or fevers GI: Negative for nausea , vomiting, diarrhea, constipation, and signs of jaundice Positive for abdominal pain epigastrium PHYSICAL EXAM: BP 114/78 Pulse 92 Ht 5' 4 (1.63m) Wt 167 lb (75.8kg) SpO2 95% BMI 28.65 kg/(m2). GENERAL APPEARANCE: Well appearing, alert, in no acute distress, well-hydrated, well nourished.. ABDOMEN: Abdomen is soft. Incisions are healed. There are no signs of infection. No signs of recurrence NEURO: Alert, oriented x3, no asterixis, speech clear and articulate, and SANCHEZ DATA: Diagnostic tests reviewed for today's visit: No new labs Greater than 50% of the direct patient contact time was spent in counseling or coordination of care. ASSESSMENT / PLAN 1. Umbilical hernia without obstruction or gangrene Doing well. I will give her a refill for pain medication. She will follow-up with us if she still has pain in several weeks. - oxyCODONE IR (ROXICODONE) 5 mg immediate release tablet; Take 1 tablet by mouth every 6 hours as needed for pain. Dispense: 20 tablet; Refill: 0 Stanford Callejas MD Allergies As of Date: 02/21/2022 Noted Allergy Reaction TRAMADOL 11/04/2021 16 - Unknown Date Reviewed: 02/21/2022 Reviewed by: Ernestine Yeager MA - Fully Assessed Reason for Visit: Post Op Follow Up [3947] Cmt: Mrs. Harvey is here today for a s/p incisional hernia. Visit Diagnosis:Umbilical hernia without obstruction or gangrene [K42.9] Order(s):oxyCODONE IR (ROXICODONE) 5 mg immediate release tabletTake 1 tablet by mouth every 6 hours as needed for pain.Disp: 20 tabletRfl: 0 Prescriptions as of 03/14/2022 - oxyCODONE IR (ROXICODONE) 5 mg immediate release tablet Take 1 tablet by mouth every 6 hours as needed for pain. - tiZANidine (ZANAFLEX) 4 mg tablet Take 1 tablet by mouth at bedtime as needed. - Nicotine 21-14-7 mg/24 hr ptds Apply 1 Patch as directed once daily for 14 days. - Ascorbic Acid 500 mg cpER Take 1 capsule by mouth once daily. - pregabalin (LYRICA) 75 mg capsule Take 75 mg by mouth twice daily. - albuterol sulfate 90 mcg/actuation breath activated powder inhaler Inhale 2 Puffs as instructed every 6 hours as needed for wheezing/shortness of breath. (more content not included)... Normal [facility] OPERATIVE NOon 02-21-2022 OPERATIVE NO HNO ID: [id number] Author: Stanford Callejas MD Service: General Surgery Author Type: Physician Type: Operative Report Filed: 02/22/2022 11:21 AM Note Text: [facility] - Operative Report ISAK HARVEY : 1970 AGE: 51. SEX: F PATIENT TYPE: A HOSP [facility] [place]: [facility] LOCATION: [facility] ATTENDING PHYSICIAN: Stanford Callejas MD [facility] NUMBER: [id number] DATE OF SURGERY/PROCEDURE: 02/08/2022 INCISION/PROCEDURE START TIME: 9:36 AM INCISION CLOSE/PROCEDURE END TIME: 1:08 PM PREOPERATIVE DIAGNOSIS: Symptomatic incisional hernia. POSTOPERATIVE DIAGNOSIS: Symptomatic incisional hernia. SURGEON: Stanford Callejas MD BUSINESS DEVELOPMENT REPRESENTATIVE: Physician Shipping Processor: Catarino Haas PA-C SURGERY/PROCEDURE: 1. Laparoscopic lysis of adhesions greater than 30 minutes. 2. Laparoscopic ventral hernia repair with mesh in robotic assistance. ANESTHESIA: General endotracheal. ESTIMATED BLOOD LOSS: Minimal. INDICATIONS FOR PROCEDURE: This is a 51-year-old female with a symptomatic incisional hernia. She comes in need for operative repair. Risks and benefits of the procedure including, but not exclusive to bleeding, infection, possibility of recurrence, and mesh infection were discussed with her and she elected to undergo the procedure. DESCRIPTION OF PROCEDURE: After informed consent was obtained, the patient was brought to the operating room and placed on the operative table in a supine position. After induction of general anesthetic and preoperative checklist was completed, the abdomen was prepped and draped in sterile fashion. A 5 mm incision was made in the left upper quadrant. Using a 5 mm Optiview trocar, direct entry was obtained into the abdominal cavity. We then performed a diagnostic laparoscopy. We saw evidence of 2 hernias along the midline and then placed 3 robotic trocars on the left side of the abdomen. The robot was then docked into place. We took down the adhesions from the abdominal wall with a combination of sharp and blunt dissection. After lysis of adhesions greater than 30 minutes, we were able to fully free the anterior abdominal wall. We identified 2 hernia defects with a small fascial bridge. We connected the fascial bridge and took down the hernia sac with electrocautery. After fully removing the hernia sac, we then were able to primarily close the defect with a running 0 V-Loc suture. This came together without undue tension. We then measured the defect approximately 9 cm in size. Secondary to this, a lightweight polypropylene mesh was selected to ensure 5 cm overlap on all sides. The mesh was inserted into the abdominal cavity. It was brought out with single transfascial suture. We then sutured the mesh to the anterior abdominal wall with a running 0 V-Loc suture. The mesh was finally flat without any tension or kinking. We then turned our attention to closure. We closed the port site at the 12 mm trocar site under direct visualization with the Candelario-Gill device and then the ports were removed. The robot was then undocked, closed the skin with a running 4-0 Monocryl stitch. At the end of the case, all sponge and needle counts were correct. The patient was awakened and transferred to PACU in stable condition. I present and scrubbed for the entire procedure. SPECIMEN: None. DRAINS: 0. WOUND CLASS: 1, clean. Stanford Callejas MD NSA:[id number] /[id number] Normal [facility] Basic metabolic 2000 panelon 02-09-2022 Anion gap [Moles/Vol] 10 mmol/L Normal 9-18 [facility] Comment on above: Order Comment: Speci men Type: BLOOD SPECIMENOrdering Facility: [facility] Address: [address] [address] Performed By: #### 2 4321-2 ####[facility] LABORATORYCLIA [id number] [place] [address] [place] Calcium [Mass/Vol] 9.1 mg/dL Normal 8.5-10.2 [facility] Comment on above: Order Comment: Speci men Type: BLOOD SPECIMENOrdering Facility: [facility] Address: [address] [place] [address] Performed By: #### 2 4321-2 ####[facility]SELAERCLIA [id number] [address] [facility] Chloride [Moles/Vol] 102 mmol/L Normal 97-105 [facility] Comment on above: Order Comment: Speci men Type: BLOOD SPECIMENOrdering Facility: [facility] Address: [address] [place] [address] Performed By: #### 2 4321-2 ####[facility] LABORATORYCLIA [id number] [address] CO2 [Moles/Vol] 26 mmol/L Normal 22-30 [facility] Comment on above: Order Comment: Speci men Type: BLOOD SPECIMENOrdering Facility: [facility] Address: [address] [place] [address] Performed By: #### 2 4321-2 ####[facility] LABORATORYCLIA [id number] [address] Creatinine [Mass/Vol] 0.59 mg/dL Normal 0.58-0.96 [facility] Comment on above: Order Comment: Speci men Type: BLOOD SPECIMENOrdering Facility: [facility] Address: [address] [place] [address] Performed By: #### 2 4321-2 ####[facility] LABORATORYCLIA [id number] [address] ESTIMATED GLOMERULAR FILTRATION RATE 108 mL/min/1.73m??? Normal >=60 [facility] Comment on above: Order Comment: Speci men Type: BLOOD SPECIMENOrdering Facility: [facility] Address: [address] [place] [address] Result Comment: Shilpa mated Glomerular Filtration Rate (eGFR) is calculated using the 2020 CKD-EPI creatinine equation. This equation utilizes serum creatinine, sex, and age as parameters. The creatinine assay has traceable calibration to isotope dilution-mass spectrometry. Refer to KDIGO guidelines for clinical interpretation. In patients with unstable renal function, e.g. those with acute kidney injury, the eGFR may not accurately reflect actual GFR. Performed By: #### 2 4321-2 ####[facility] LABORATORYCLIA [id number] [place] [address] [place] Glucose [Mass/Vol] 129 mg/dL High 74-99 [facility] Comment on above: Order Comment: Valery dockery Type: BLOOD SPECIMENOrdering Facility: [facility] Address: [address] [place] [address] Result Comment: The [place] Diabetes Association (ADA) provides guidance for cutoff values for fasting glucose and random glucose. The ADA defines fasting as no caloric intake for at least 8 hours. Fasting plasma glucose results between 100 to 125 mg/dL indicate increased risk for diabetes (prediabetes). Fasting plasma glucose results greater than or equal to 126 mg/dL meet the criteria for diagnosis of diabetes. In the absence of unequivocal hyperglycemia, results should be confirmed by repeat testing. In a patient with classic symptoms of hyperglycemia or hyperglycemic crisis, random plasma glucose results greater than or equal to 200 mg/dL meet the criteria for diagnosis of diabetes. Reference: Standards of Medical Care in Diabetes 2016, [place] [employer]. Diabetes Care. 2016.39(Suppl 1). Performed By: #### 2 4321-2 ####[facility] LABORATORYCLIA [id number] [place] [address] [place] Potassium [Moles/Vol] 4.2 mmol/L Normal 3.7-5.1 [facility] Comment on above: Order Comment: Valery dockery Type: BLOOD SPECIMENOrdering Facility: [facility] Address: [address] [place] [address] Performed By: #### 2 4321-2 ####[facility] LABORATORYCLIA [id number] [place] [address] [place] Sodium [Moles/Vol] 138 mmol/L Normal 136-144 [facility] Comment on above: Order Comment: Valery sarkis Type: BLOOD SPECIMENOrdering Facility: [facility] Address: [address] [place] [address] Performed By: #### 2 4321-2 ####[facility] LABORATORYCLIA [id number] [place] [address] [place] Urea nitrogen [Mass/Vol] 10 mg/dL Normal 7-21 [facility] Comment on above: Order Comment: Speci men Type: BLOOD SPECIMENOrdering Facility: [facility] Address: [address] [place] [address] Performed By: #### 2 4321-2 ####[facility]ORATORYCLIA [id number] [address] STATES OF [facility] CBC panel Auto (Bld)on 02-09 Erythrocyte distribution width (RBC) [Ratio] 12.8 % Normal 11.5-15.0 [facility] Comment on above: Order Comment: Speci men Type: BLOOD SPECIMEN [facility]: [facility] Address: [address] [place] [address] Performed By: #### 5 8410-2 #### [facility] CLIA [id number] [address] [place] [address] Hematocrit (Bld) [Volume fraction] 36.9 % Normal 36.0-46.0 [facility] Comment on above: Order Comment: Speci men Type: BLOOD SPECIMEN [facility] Address: [address] [place] [address] Performed By: #### 5 8410-2 #### [facility] CLIA [id number] [address] [place] [address] Hemoglobin (Bld) [Mass/Vol] 12.1 g/dL Normal 11.5-15.5 [facility] Comment on above: Order Comment: Speci men Type: BLOOD SPECIMEN [facility]: [facility] Address: [address] [address] Performed By: #### 5 8410-2 #### [facility] CLIA [id number] [address] [place] [address] [place] MCH (RBC) [Entitic mass] 31.0 pg Normal 26.0-34.0 [facility] Comment on above: Order Comment: Speci men Type: BLOOD SPECIMEN [facility] Address: [address] [place] [address] Performed By: #### 5 8410-2 #### [facility] CLIA [id number] [address] MCHC (RBC) [Mass/Vol] 32.8 g/dL Normal 30.5-36.0 [facility] Comment on above: Order Comment: Speci men Type: BLOOD SPECIMEN [facility] Address: [address] [place] [address] Performed By: #### 5 8410-2 #### [facility] CLIA [id number] [address] MCV (RBC) [Entitic vol] 94.6 fL Normal 80.0-100.0 [facility] Comment on above: Order Comment: Speci men Type: BLOOD SPECIMEN [facility] Address: [address] [place] [address] Performed By: #### 5 8410-2 #### [facility] CLIA [id number] [address] Nucleated RBC (Bld) [#/Vol] 10*3/uL Normal <0.01 [facility] Comment on above: Order Comment: Speci men Type: BLOOD SPECIMEN [facility] Address: [address] [place] [address] Performed By: #### 5 8410-2 #### [facility] CLIA [id number] [address] Platelet mean volume (Bld) [Entitic vol] 9.3 fL Normal 9.0-12.7 [facility] Comment on above: Order Comment: Speci men Type: BLOOD SPECIMEN [facility] Address: [address] [place] [address] Performed By: #### 5 8410-2 #### [facility] CLIA [id number] [address] OF [place] Platelets (Bld) [#/Vol] 267 10*3/uL Normal 150-400 [facility] Comment on above: Order Comment: Speci men Type: BLOOD SPECIMEN [facility] Address: [address] [address] Performed By: #### 5 8410-2 #### [facility] CLIA [id number] [address] RBC (Bld) [#/Vol] 3.90 10*6/uL Normal 3.90-5.20 [facility] Comment on above: Order Comment: Speci men Type: BLOOD SPECIMEN [facility] Address: [address] [address] Performed By: #### 5 8410-2 #### [facility] CLIA [id number] [address] WBC (Bld) [#/Vol] 10.47 10*3/uL Normal 3.70-11.00 [facility] Comment on above: Order Comment: Speci men Type: BLOOD SPECIMEN [facility] Address: [address] [place] [address] Performed By: #### 5 8410-2 #### [facility] CLIA [id number] [address] CNDSon 02-09-2022 [facility] HNO ID: [id number] Author: Jone Kapoor DO Service: General Surgery Author Type: Resident Type: Discharge Summary Filed: 02/09/2022 5:07 PM Note Text: Attestation signed by Stanford Callejas MD at 02/14/2022 2:09 PM I saw and evaluated the patient. Discussed with the resident and agree with resident's findings and plan as documented in the resident's note. February 14, 2022 Stanford Callejas MD 2:09 PM Plan of care discussed with: Provider, RN, Patient. DISCHARGE SUMMARY PATIENT NAME: Isak Harvey Code Status: Not on file Highest Readmission Risk Score: 10 The 30 day readmissions risk score is derived from an internally validated risk model which evaluates patient level characteristics, utilization history, medication orders and lab results up until the day of discharge. Patients with a score of 40 or above are considered highest risk for readmission. Specific patient level drivers will be listed at the bottom of the summary. Admission Information Admission Information ADMIT DATE: 02/08/2022 DISCHARGE DATE: 02/09/2022 MY DOCTORS AND MEDICAL TEAM: My Main Hospital Doctor: Stanford Callejas MD Primary Care Provider: Laina Marinelli MD My Medical Team Members: Treatment Team: Attending Provider: Stanford Callejas MD MY CONDITION AT DISCHARGE: Stable REASON I WAS IN THE HOSPITAL: Incisional hernia Repair SUMMARY OF WHAT HAPPENED WHILE I WAS IN THE HOSPITAL: Patient was admitted to the hospital following her surgery which she tolerated well. She was monitored on the regular nursing floor. She was monitored for pain control, oxygenation and ambulation all of which she achieved. She was seen by the general surgery team and discharged. OTHER PROBLEMS/DIAGNOSIS: Principal Problem: Ventral hernia, recurrent Resolved Problems: * No resolved hospital problems. * OPERATIONS PERFORMED WHILE IN THE HOSPITAL: - Robotic Incisional and inguinal Hernia Repair w/ Mesh IMPORTANT TEST/PROCEDURES: No procedures performed TEST RESULTS NOT AVAILABLE AT THIS TIME: No pending results Discharge Disposition Discharge Disposition: Home With Self Care Activity When You Leave the Hospital Lifting is restricted to: Nothing heavier than 10-15 lbs for 6 weeks. May use stairs No prolonged bedrest, longer than 8 hours in a 24 hour period No walking restrictions Other: Okay to shower. No baths or sitting in standing water for 3 weeks. Diet Instructions After general anesthetic, your stomach may be sensitive. Begin slowly by drinking water, then clear liquids, and then a light meal Drink 6 to 8 glasses of fluids per day Regular Resume your pre-hospital diet For Pain When You Leave the Hospital If you become constipated, you may use any kcgz-dwx-jpagfvi treatment such as Milk of Magnesia, Sennakot, Prune Juice, Suppositories, etc. in addition to the stool softener/fiber supplement No alcohol or driving while on pain medication Use acetaminophen (Tylenol) as recommended on the bottle Use the dispensed medication (see prescription) You should use an ubbx-foe-rmidhhv stool softener (Docusate sodium) and/or a fiber supplement (Metamucil, Fiber Con) every day while taking prescribed pain medication Wound/Surgical Site Care Apply ice packs as needed It is normal to have swelling, mild bruising, blood on the steri-strips, numbness and firmness around the incision Leave open to air Some bleeding from the wound/surgical site can be expected. If excessive, see a doctor at once Steri strips can get wet. Let them fall off or remove in: 7-10 days Wash your hands frequently, especially before touching your incision, after using restroom and before eating Call Your Doctor If There is an unusual odor from the wound area There is severe pain at the operative site You have a severe headache You have lightheadedness, fainting, or confusion You have persistent nausea/vomiting over 24 hours You have persistent or heavy bleeding You have redness, swelling, pus or drainage from the wound You have swollen glands or cold and clammy skin Your temperature is greater than 101F Follow Up Appointments Follow-Up Appointment When: In 2 weeks Patient/Parents to call for appointment?: Yes Stanford Callejas MD [phone] [address] PCP Requested Referral Additional Provider to Provider Information: Principal Problem: Ventral hernia, recurrent Resolved Problems: * No resolved hospital problems. * Treatment Team: Attending Provider: Stanford Callejas MD Transitions of Care Critical Issues: NEW BASELINE FOR PATIENT: lifting restrictions, abdominal binder LABS AND PROCEDURES PENDING AT DISCHARGE: No pending results. FOLLOW-UP APPOINTMENTS ALREADY SCHEDULED WITH A [facility] (more content not included)... Normal [facility] ANES POSTPROC EVALon 023 ANES POSTPROC EVAL HNO ID: [id number] Author: Jassi Almaraz MD Service: ? Author Type: Anesthesiologist Type: Anesthesia Postprocedure Evaluation Filed: 02/08/2022 1:36 PM Note Text: POST ANESTHESIA EVALUATION NOTE : 1970 Procedure Summary Date: 02/08/22 Room / Location: [place] OR OR Anesthesia Start: 903 Anesthesia Stop: 1325 Procedures: ROBOTIC LAPAROSCOPIC REPAIR HERNIA REDUCIBLE VENTRAL W/MESH; POSSIBLE BLOOD PRODUCTS XI ROBOTIC INGUINAL HERNIA REPAIR WITH MESH (Bilateral: Abdomen) Diagnosis: Ventral hernia without obstruction or gangrene (Ventral hernia without obstruction or gangrene [K43.9]) Surgeons: Stanford Callejas MD Responsible Provider: Jassi Almaraz MD Anesthesia Type: general ASA Status: 2 Anesthesia Type: general Airway Type: ETT Last Vitals Vitals Value Taken Time BP 133/86 02/08/22 1330 Temp 02/08/22 1336 Pulse 78 02/08/22 1335 Resp 18 02/08/22 1335 SpO2 94 % 02/08/22 1335 Vitals shown include unvalidated device data. Post Anesthesia Patient Status Patient Evaluation: PACU. Anticipated Disposition: phase 2 then home. Neurological Status: sleepy but arousable. Pulmonary Status: breathing comfortably on supplemental oxygen Airway Control: returned to baseline unsupported. Cardiovascular Status: stable. Pain Management: clinically adequate Postoperative Hydration: acceptable. Intraoperative Events: no significant anesthesia events Post Operative Nausea/Vomiting Status: no significant post operative nausea or vomiting Recommendation: continue current plan of care. Anesthesia Observations No Documentation SIGNATURE: Jassi Almaraz MD, MD PATIENT NAME: Isak Harvey DATE: February 08, 2022 TIME: 1:36 PM CSN: [id number] Normal [facility] ANES PRE-OPon 02-08-2022 ANES PRE-OP HNO ID: [id number] Author: Jassi Almaraz MD Service: ? Author Type: Anesthesiologist Type: Anesthesia Preprocedure Evaluation Filed: 02/08/2022 8:26 AM Note Text: ANESTHESIOLOGY DAY OF SURGERY NOTE : 1970 Procedure Information Date/Time: 02/08/22 0900 Procedure: ROBOTIC LAPAROSCOPIC REPAIR HERNIA REDUCIBLE VENTRAL W/MESH Location: [place] OR OR Surgeons: Stanford Callejas MD Estimated body mass index is 28.56 kg/m? as calculated from the following: Height as of 02/01/22: 162.6 cm (5' 4). Weight as of 02/01/22: 75.5 kg (166 lb 6.4 oz). Most recent hematocrit and potassium results: No results found for this basename: HCT,HEMATOCRIT,K,POTAS SIUM Relevant Problems No relevant active problems I - PHYSICAL EVALUATION AIRWAY Patient intubated: No. Tracheostomy tube not present Mallampati: I. TM distance: >3 FB. Neck ROM: full ROM without neurological symptoms. Mouth opening: adequate. Short neck: no. Thick neck: no Ruiz present: no DENTAL Dental findings: missing tooth/teeth. II - ANESTHESIA PLAN ASA Score: 2 Anesthetic Plan: general Airway type: ETT The patient is not a current smoker. NPO Status: adequate Beta Jeison Monitoring Plan Monitoring plan: standard ASA. Post Procedure Analgesic Plan Postoperative analgesic plan: multimodal analgesia. Informed Consent Anesthetic risks, benefits, alternatives, personnel and consent discussed: yes. Patient / Responsible Alliance Party agrees to proceed: yes Patient / Surrogate agrees to blood products: blood products not planned Vitals Value Taken Time BP 128/78 02/08/22 075 Pulse 65 02/08/22756 Resp 20 02/08/22756 Temp 36.4 ?C (97.5 ?F) 02/08/22 075 SpO2 97 % 02/08/22756 Facility-Administered Medications as of 02/08/2022 Medication Dose Route Frequency - [COMPLETED] enoxaparin 40 mg injection (LOVENOX) 40 mg SUBCUTANEOUS ONCE - lidocaine 10 mg/mL (1 %) 1-2 mg injection (XYLOCAINE) 0.1-0.2 mL INTRADERMAL PRN - lactated ringers iv infusion 5-30 mL/hr INTRAVENOUS CONTINUOUS - NaCl 0.9% iv flush bag 20 mL INTRAVENOUS PRN - ceFAZolin iv piggyback 2 g in D5W (iso-osmotic) 100 mL (ANCEF) 2 g INTRAVENOUS Pre-Op Once Outpatient Medications as of 02/08/2022 Medication Sig - HYDROcodone-Acetaminop hen (NORCO) 7.5-325 mg per tablet Take 1 tablet by mouth four times daily as needed. - tiZANidine (ZANAFLEX) 4 mg tablet Take 1 tablet by mouth at bedtime as needed. - Ascorbic Acid 500 mg cpER Take 1 capsule by mouth once daily. - pregabalin (LYRICA) 75 mg capsule Take 75 mg by mouth twice daily. - albuterol sulfate 90 mcg/actuation breath activated powder inhaler Inhale 2 Puffs as instructed every 6 hours as needed for wheezing/shortness of breath. - fluticasone propionate (FLOVENT HFA) 50 mcg/actuation inhaler Inhale 2 Puffs as instructed as needed. - celecoxib (CELEBREX) 200 mg capsule Take 200 mg by mouth once daily. - Nicotine 21-14-7 mg/24 hr ptds Apply 1 Patch as directed once daily for 14 days. (Patient taking differently: Apply 1 Patch as directed as needed.) - budesonide-formoterol (SYMBICORT) 80-4.5 mcg/actuation inhaler Inhale 2 Puffs as instructed twice daily. (Patient not taking: No sig reported) I have interviewed and examined the patient. I have reviewed the medical record and/or the pre-anesthesia evaluation, pertinent labs, and test results. This contains updated information obtained within 48 hours of Surgery/Procedure. SIGNATURE: Jassi Almaraz MD, MD PATIENT NAME: Isak Harvey DATE: February 08, 2022 TIME: 8:25 AM CSN: [id number] [facility] BRIEF OP NOTon 02-08-2022 BRIEF OP NOT HNO ID: [id number] Author: Jone Pavon DO Service: General Surgery Author Type: Resident Type: Brief Op Note Filed: 02/08/2022 1:34 PM Note Text: BRIEF OPERATIVE / PROCEDURE NOTE LOG ID: [id number] SURGERY/PROCEDURE DATE: 02/08/2022 INCISION/PROCEDURE START TIME: 9:36 AM INCISION CLOSE/PROCEDURE END TIME: 1:08 PM SURGEON(S)/PROCEDURALI ST(S) AND BUSINESS DEVELOPMENT REPRESENTATIVE(S): Surgeon(s) and Role: * Stanford Callejas MD - Primary * Jone Pavon DO - Resident - Assisting Physician Shipping Processor: Catarino Haas PA-C SURGERY/PROCEDURE(S): robot assisted ventral hernia repair with mesh, bilateral inguinal hernia repair with mesh ANESTHESIA: General FINDINGS: 2 cm ventral hernia with omentum, large R indirect hernia containing fat, small L indirect inguinal hernia ESTIMATED BLOOD LOSS: 30 mls SPECIMENS: hernia sack COMPLICATIONS: None PRE-OP/PRE-PROCEDURE DIAGNOSIS: ventral hernia, bilateral inguinal hernias POST-OP/POST-PROCEDURE DIAGNOSIS: Same as Preop SIGNATURE: Jone Pavon DO PATIENT NAME: Isak Harvey DATE: February 08, 2022 TIME: 1:32 PM Normal [facility] HISTORY PHYSICALon 2 HISTORY PHYSICAL HNO ID: [id number] Author: Reta Thompson APRN.SHASHANK Service: ? Author Type: Nurse Practitioner Type: HANDP Filed: 02/01/2022 12:56 PM Note Text: HISTORY AND PHYSICAL EXAMINATION SERVICE DATE: 02/01/2022 SERVICE TIME: 12:55 PM PRIMARY CARE PHYSICIAN: No primary care provider on file. REASON FOR VISIT: Isak Harvey is a 51 year old female who is scheduled for Procedure(s): ROBOTIC LAPAROSCOPIC REPAIR HERNIA REDUCIBLE VENTRAL W/MESH (N/A) at the request of Dr. Stanford Callejas for routine HANDP. My final recommendation will be communicated back to the requesting physician by way of shared medical record or letter. Subjective The patient has the following: ACTIVE PROBLEM LIST Umbilical Hernia Without Obstruction Or Gangrene COVID-19 Immunization Status Overdue - COVID-19 VACCINE (1) Overdue - never done No completion, postpone, frequency change, or communication history exists for this topic. CHIEF COMPLAINT: pre-op exam HPI: Isak is a 51 year old female who presents for presurgical testing. She states she has had a right inguinal hernia and abdominal hernia for a couple years. She endorses burning pain in her right groin. She denies problems with her bowel and bladder. She was referred to the surgeon, discussed options and is agreeable to surgical intervention. REVIEW OF SYSTEMS: General: No weight loss, malaise or fevers. Neurological: Negative for: headaches and seizures. Respiratory: + recently quit smoking- about 5 weeks ago Negative for: asthma, COPD, current cough, dyspnea, tobacco use and obstructive sleep apnea. Cardiovascular: Negative for: anticoagulation therapy, arrhythmia, atrial fibrillation, CAD, chest pain, DVT/PE and hyperlipidemia. GI: See HPI. Negative for: dysphagia, nausea and vomiting. : Negative for: frequent urination, hematuria and urgency. Endocrine: Negative for: diabetes mellitus, hyperthyroidism, hypothyroidism and hyperparathyroidism. Hematology: Negative for: anemia, bruises/bleeds easily and chronic anti-coagulation/plate let meds. Oncology: + hx cervical cancer s/p hysterectomy Psych: Negative for: anxiety and depression. Musculoskeletal: Negative for joint pain or swelling, back pain or muscle pain. Positive for: back pain and joint pain. Skin: Negative for lesions, rash and itching. PAST MEDICAL HISTORY Diagnosis Date Arthritis Back pain Cervical cancer (HCC) Fatigue Lab test positive for detection of COVID-19 virus 02/2021 Restless legs syndrome Scoliosis Tubal Ventral hernia PAST SURGICAL HISTORY Procedure Laterality Date OVARIAN CYSTECTOMY PAST SURGICAL HISTORY OF Left 2012 tumor side TOTAL ABDOM HYSTERECTOMY N/A TOTAL KNEE REPLACEMENT Left 2001 FAMILY HISTORY Problem Relation Age of Onset Diabetes Father other (CVA) Father Ovarian cancer Sister Social History Tobacco Use Smoking status: Former Packs/day: 0.50 Years: 20.00 Pack years: 10.00 Types: Cigarettes Quit date: 01/03/2022 Years since quittin.0 Smokeless tobacco: Never Substance Use Topics Alcohol use: Never Drug use: Never Prior to Admission medications as of 02/01/22 1126 Medication Sig Last Dose Taking HYDROcodone-Acetaminop hen (NORCO) 7.5-325 mg per tablet Take 1 tablet by mouth four times daily as needed. Taking Yes tiZANidine (ZANAFLEX) 4 mg tablet Take 1 tablet by mouth at bedtime as needed. Taking Yes Ascorbic Acid 500 mg cpER Take 1 capsule by mouth once daily. Taking Yes pregabalin (LYRICA) 75 mg capsule Take 75 mg by mouth twice daily. Taking Yes albuterol sulfate 90 mcg/actuation breath activated powder inhaler Inhale 2 Puffs as instructed every 6 hours as needed for wheezing/shortness of breath. Taking Yes fluticasone propionate (FLOVENT HFA) 50 mcg/actuation inhaler Inhale 2 Puffs as instructed as needed. Taking Yes celecoxib (CELEBREX) 200 mg capsule Take 200 mg by mouth once daily. Taking Yes Nicotine 21-14-7 mg/24 hr ptds Apply 1 Patch as directed once daily for 14 days. Patient taking differently: Apply 1 Patch as directed as needed. budesonide-formoterol (SYMBICORT) 80-4.5 mcg/actuation inhaler Inhale 2 Puffs as instructed twice daily. Patient not taking: Reported on 01/31/2022 No medication comments found. ALLERGIES Allergen Reactions Tramadol Unknown Objective PHYSICAL EXAM: General: alert and oriented and healthy appearance. Pertinent negatives noted - not distressed. Skin: normal color, no rash or lesions. HEENT: EOM intact and pupils equal round. Cardiovascular: regular rate and rhythm, normal S1 and S2, no rub, murmurs, or gallop. Respiratory: normal breath sounds, no wheezes or crackles. No chest wall deformity or tenderness. Abdomen: bowel sounds present and soft. Pertinent negatives noted - not tender. Extremities: no deformity, no edema or tenderness, no joint swelling or clubbing. Neurological: no (more content not included)... Normal [facility] HbA1c (Bld)on 01-18-2022 Average glucose Estimated from glycated hemoglobin (Bld) [Mass/Vol] 105 mg/dL Normal [facility] Comment on above: Order Comment: Valery dockery Type: BLOOD SPECIMEN [facility] Address: [address] [place] [address] Result Comment: eAG: (Estimated average glucose) is a calculated value from HgbA1c and is maintenance representative of the average blood glucose level in the last 2-3 month period. Performed By: #### 5 5454-3 #### [facility] CLIA [id number] [address] [place] [address] [place] HbA1c (Bld) [Mass fraction] 5.3 % Normal 4.3-5.[address] [facility] Comment on above: Order Comment: Valery dockery Type: BLOOD SPECIMEN [facility] Address: [address] [place] [address] Result Comment: [place] Diabetes Association guidelines indicate that patients with HgbA1c in the range 5.7-6.4% are at increased risk for development of diabetes, and intervention by lifestyle modification may be beneficial. HgbA1c greater or equal to 6.5% is considered diagnostic of diabetes. Performed By: #### 5 5454-3 #### [facility] CLIA [id number] [address] [place] [address] [place] CNOVon 11-22-2021 CNOV Office Visit (AGGENS 1) ISAK HARVEY ([id number]) 1970 F Date Time Provider Department 11/22/21 10:00 AM [facility] During your visit today, we recorded the following information about you: Pulse Blood pressure Weight Height 97/minute 127/85 74.4 kg 1.626 m Stanford Callejas MD 11/22/2021 10:49 AM Signed Patient referred by: Surinder Hassan [address] [facility] [address] [facility] [address] HPI: This is a new patient consult from Dr. Hassan. 48-year-old female with symptomatic incisional hernia and inguinal hernia. Has been present for several months. Is getting worse. He does have bulge in the right groin. She states she had umbilical hernia repaired in the past. She currently smokes about a pack a day. She is not diabetic. . PAST MEDICAL HISTORY Diagnosis Date Arthritis Back pain Cervical cancer (HCC) Fatigue Scoliosis Tubal PAST SURGICAL HISTORY Procedure Laterality Date ANES OPEN/SURG ARTHROSCOPIC PROC KNEE JOINT NOS TOTAL ABDOM HYSTERECTOMY N/A TOTAL KNEE REPLACEMENT FAMILY HISTORY Problem Relation Age of Onset Diabetes Father other (CVA) Father Ovarian cancer Sister Current Outpatient Medications Medication Sig HYDROcodone-Acetaminop hen (NORCO) 7.5-325 mg per tablet Take 1 tablet by mouth four times daily as needed. tiZANidine (ZANAFLEX) 4 mg tablet Take 1 tablet by mouth at bedtime as needed. Ascorbic Acid 500 mg cpER Take 1 capsule by mouth once daily. pregabalin (LYRICA) 75 mg capsule Take 75 mg by mouth twice daily. albuterol sulfate 90 mcg/actuation breath activated powder inhaler Inhale 2 Puffs as instructed every 6 hours as needed for wheezing/shortness of breath. fluticasone propionate (FLOVENT HFA) 50 mcg/actuation inhaler Inhale 2 Puffs as instructed twice daily. celecoxib (CELEBREX) 200 mg capsule Take 200 mg by mouth once daily. budesonide-formoterol (SYMBICORT) 80-4.5 mcg/actuation inhaler Inhale 2 Puffs as instructed twice daily. lidocaine (LIDODERM) 5 % Apply 1 Patch as directed every 24 hours. Nicotine 21-14-7 mg/24 hr ptds Apply 1 Patch as directed once daily for 14 days. montelukast (SINGULAIR) 10 mg tablet Take 10 mg by mouth daily at bedtime. (Patient not taking: Reported on 11/22/2021) No current facility-administered medications for this visit. ALLERGIES Allergen Reactions Tramadol Unknown REVIEW OF SYSTEMS: GENERAL: No weight loss, malaise or fevers GI: Negative for nausea , vomiting, diarrhea, constipation, and signs of jaundice Positive for abdominal pain RLQ PHYSICAL EXAM: BP 127/85 Pulse 97 Ht 5' 4 (1.63m) Wt 164 lb (74.4kg) SpO2 98% BMI 28.14 kg/(m2). GENERAL APPEARANCE: Well appearing, alert, in no acute distress, well-hydrated, well nourished.. ABDOMEN: Abdomen is soft. There is a reducible umbilical hernia as well as a reducible inguinal hernia. There are no skin changes. NEURO: Alert, oriented x3, no asterixis, speech clear and articulate, and SANCHEZ HEART: regular rate and rhythm, without murmur LUNGS: clear to auscultation, without rales or wheeze, good air exchange DATA: Diagnostic tests reviewed for today's visit: Most recent labs Most recent imaging I spent a total of 60 minutes on the date of the service which included preparing to see the patient, [id number] patient care, completing clinical documentation, obtaining and/or reviewing separately obtained history, performing a medically appropriate examination, counseling and educating the patient/family/caregiv er, ordering medications, tests, or procedures, and communicating results to the patient/family/caregiv er. . Greater than 50% of the direct patient contact time was spent in counseling or coordination of care. Medical Decision Making: Medical Decision Making Level: 1 - N/A ASSESSMENT / PLAN: 1. Incisional hernia, without obstruction or gangrene I reviewed her CT scan. This shows evidence of an incisional hernia at the umbilicus as well as the inguinal hernia. I do believe she would be an excellent candidate for robotic repair of each. Risk and benefits of the operation including but access to bleeding infection and possibility of postoperative recurrence were discussed with her and she wished to move forward the operation. She will need to be off tobacco prior to surgery. I will give her nicotine patches to aid in this. Stanford Callejas MD Please Note: This office note has been created using [employer], a speech recognition software program, and may contain errors including punctuation, grammar, spelling, gender, and inappropriate words or phrases that pertain to the sytem. Stanford Callejas MD 11/22/2021 10:46 AM Signed Office will call with date and time for surgery Viktoria Baron MA 11/22/2021 3:42 PM Signed Addended by: VIKTORIA BARON on: 11/22/2021 03:42 PM Modules accepted: Orders Referring Pro (more content not included)... Normal [facility] Absolute lymphocyte counton 11-02-2021 Lymphocytes Auto (Unsp spec) [#/Vol] 1.81 10*3/uL 0.83-4.51 [facility] Work Phone: Basophil percentageon 2021 Basophils/100 WBC (Bld) 0.7 % 0-1 [facility] Work Phone: Bilirubin [Mass/Vol] 0.40 mg/dL 0.20-1.00 [facility] Work Phone: Comment on above: For patients on eltr ombopag therapy, use of Dimension Brooks TBIL is not recommended. Chloride [Moles/Vol] 104 mmol/L 98-107 [facility] Work Phone: Eosinophils/100 WBC (Bld) 0.9 % 0-5 [facility] Work Phone: Glucose [Mass/Vol] 106 mg/dL 74-106 [facility] Work Phone: Comment on above: Fasting Glucose resu lt from 100 to 125 mg/dL suggests IMPAIRED HOMEOSTASIS per A.D.A. criteria. Lactate [Moles/Vol] 1.0 mmol/L 0.4-2.0 [facility] Work Phone: Neutrophils (Bld) [#/Vol] 4.1 10*3/uL 2.0-7.7 [facility] Work Phone: [phone] Neutrophils/100 WBC (Bld) 59.2 % 47-70 [facility] Work Phone: Potassium [Moles/Vol] 4.3 mmol/L 3.5-5.[address] [facility] Work Phone: Protein [Mass/Vol] 8.0 g/dL 6.4-8.2 [facility] Work Phone: [phone] Sodium [Moles/Vol] 138 mmol/L 136-145 [facility] Work Phone: WBC (Bld) [#/Vol] 6.9 10*3/uL 4.4-11.0 [facility] Work Phone: [phone] Blood erythrocytes count (nu mber/volume)on 11-02-2021 RBC (Bld) [#/Vol] 4.31 10*6/uL 4.2-5.4 [facility] Work Phone: Blood hemoglobin measurement (mass/volume)on 11-02-2021 Hemoglobin (Bld) [Mass/Vol] 13.9 g/dL 12.0-15.0 [facility] Work Phone: [phone] Blood lymphocytes/100 leukoc yteson 11-02-2021 Lymphocytes/100 WBC (Bld) 26.3 % 19-41 [facility] Work Phone: [phone] Blood monocytes/100 leukocyt eson 11-02-2021 Monocytes/100 WBC (Bld) 12.6 % 0-10 [facility] Work Phone: [phone] Blood platelet mean volumeon 11-02-2021 Platelet mean volume (Bld) [Entitic vol] 9.1 fL 6.2-12.0 [facility] Work Phone: Determination of erythrocyte mean corpuscular volume (MCV)on 11-02-2021 MCV (RBC) [Entitic vol] 96.8 fL 81-99 [facility] Work Phone: Hematocrit Auto (Bld) [Volum e fraction]on 11-02-2021 Hematocrit (Bld) [Volume fraction] 41.7 % 37-47 [facility] Work Phone: [phone] Laboratory - Chemistry and C hemistry - challengeon 11-02-2021 ALP [Catalytic activity/Vol] 82 U/L 45-117 [facility] Work Phone: [phone] ALT [Catalytic activity/Vol] 17 U/L 13-56 [facility] Work Phone: [phone] CO2 [Moles/Vol] 27.0 mmol/L 21.0-32.0 [facility] Work Phone: [phone] Globulin (S) [Mass/Vol] 4.3 g/dL 2.2-4.2 [facility] Work Phone: [phone] Urea nitrogen/Creatinine [Mass ratio] 14.0 mg/mg 10-20 [facility] Work Phone: [phone] Laboratory - Hematology and Cell countson 11-02-2021 Erythrocyte distribution width (RBC) [Entitic vol] 46.0 fL 35.1-43.9 [facility] Work Phone: [phone] Erythrocyte distribution width (RBC) [Ratio] 12.8 % 11.6-14.6 [facility] Work Phone: [phone] Immature granulocytes/100 WBC (Bld) 0.300 % 0.0-0.9 [facility] Work Phone: [phone] Comment on above: IG% - Immature Granu locytes (promyelocytes, myelocytes and metamyelocytes) > 1% indicates that a LEFT SHIFT is Present. MCH (RBC) [Entitic mass] 32.3 pg 27.0-32.0 [facility] Work Phone: [phone] Nucleated RBC/100 WBC (Bld) [Ratio] 0 % 0-5 [facility] Work Phone: [phone] MCHC Auto (RBC) [Mass/Vol]on 11-02-2021 MCHC (RBC) [Mass/Vol] 33.3 g/dL 32-36 [facility] Work Phone: No Panel Informationon 11-02 Estimated Creatinine Clearance Calc 87.78 ml/min [facility] Work Phone: Estimated GFR (MDRD) Amer 124 mL/min >60 [facility] Work Phone: Comment on above: GFR Calc Estimated GFR (MDRD) Non-Af Amer 102 mL/min >60 [facility] Work Phone: Comment on above: Non- GFR Calc Platelets bldon 11-02-2021 Platelets (Bld) [#/Vol] 297 10*3/uL 150-450 [facility] Work Phone: Serum or plasma albumin michael urement (mass/volume)on 11-02-2021 Albumin [Mass/Vol] 3.7 g/dL 3.2-5.0 [facility] Work Phone: Serum or plasma albumin/glob ulin mass ratioon 11-02-2021 Albumin/Globulin [Mass ratio] 0.9 {ratio} 0.9-2.4 [facility] Work Phone: Serum or plasma calcium michael urement (mass/volume)on 11-02-2021 Calcium [Mass/Vol] 9.2 mg/dL 8.5-10.1 [facility] Work Phone: Serum or plasma creatinine m easurement (mass/volume)on 11-02-2021 Creatinine [Mass/Vol] 0.64 mg/dL 0.55-1.[address] [facility] Work Phone: Comment on above: The validity of the calculated GFR & GFRAA in patients over 70 years has not been determined. Clinical correlation is essential. Serum or plasma urea nitroge n measurement (mass/volume)on 11-02-2021 Urea nitrogen [Mass/Vol] 9 mg/dL 7-18 [facility] Work Phone: Thin prep Papanicolaou smear with manual screeningon 11-02-2021 Thin prep Papanicolaou smear with manual screening 13 U/L 15-37 [facility] Work Phone: Thin prep Papanicolaou smear with manual screening 7 5-15 [facility] Work Phone: Office Visiton 11-01-2016 Documentation of current medications (procedure) Done Invalid Interpretation Code [facility] [employer] Work Phone: Office Visit: staple removal on 10-25-2016 Dietary management education, guidance, and counseling (procedure) yes Invalid Interpretation Code [facility] [employer] Work Phone: Documentation of current medications (procedure) Done Invalid Interpretation Code [facility] [employer] Work Phone: Fall risk assessment No Invalid Interpretation Code [facility] [employer] Work Phone: Smoking cessation education (procedure) yes Invalid Interpretation Code [facility] [employer] Work Phone: Tobacco smoking status NHIS Never Invalid Interpretation Code [facility] [employer] Work Phone: Tobacco use [facility] Current every day smoker Invalid Interpretation Code [facility] [employer] Work Phone: Office Visit: Post Op wound vac careon 10-19-2016 Dietary management education, guidance, and counseling (procedure) yes Invalid Interpretation Code [facility] [employer] Work Phone: Documentation of current medications (procedure) Done Invalid Interpretation Code [facility] [employer] Work Phone: Fall risk assessment No Invalid Interpretation Code [facility] [employer] Work Phone: Smoking cessation education (procedure) yes Invalid Interpretation Code [facility] [employer] Work Phone: Tobacco smoking status NHIS Never Invalid Interpretation Code [facility] [employer] Work Phone: Tobacco use [facility] Current every day smoker Invalid Interpretation Code [facility] [employer] Work Phone: Office Visit: Post Op Leg Wo undon 10-17-2016 Dietary management education, guidance, and counseling (procedure) yes Invalid Interpretation Code [facility] [employer] Work Phone: Documentation of current medications (procedure) Done Invalid Interpretation Code [facility] [employer] Work Phone: Fall risk assessment No [facility] [employer] Work Phone: Protein mass conc Done [facility] [employer] Work Phone: Protein mass conc yes [facility] [employer] Work Phone: Smoking cessation education (procedure) yes Invalid Interpretation Code [facility] [employer] Work Phone: Tobacco smoking status NHIS Never [facility] [employer] Work Phone: Tobacco smoking status NHIS Current every day smoker [facility] [employer] Work Phone: Tobacco use [facility] Current every day smoker Invalid Interpretation Code [facility] [employer] Work Phone: Office Visit: wojan lucero LLEon 10-10-2016 Protein mass conc Done [facility] [employer] Work Phone: Protein mass conc yes [facility] [employer] Work Phone: Tobacco smoking status NHIS Never [facility] [employer] Work Phone: Tobacco smoking status NHIS Current every day smoker [facility] [employer] Work Phone: Office Visit: gregorio MONTOYA wo undon 10-05-2016 Documentation of current medications (procedure) Done Invalid Interpretation Code [facility] [employer] Work Phone: Protein mass conc yes [facility] [employer] Work Phone: Protein mass conc Done [facility] [employer] Work Phone: Smoking cessation education (procedure) yes Invalid Interpretation Code [facility] [employer] Work Phone: Tobacco smoking status NHIS Current every day smoker [facility] [employer] Work Phone: Tobacco use [facility] Current every day smoker Invalid Interpretation Code [facility] [employer] Work Phone: Office Visit: New Pt. 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 Laina Marinelli MD Work Phone: [facility] 07-04-2024 10:03-0400 Body mass index (BMI) [Ratio] 31.7 kg/m2 Dr. Laina Marinelli MD Work Phone: [facility] 07-04-2024 10:03-0400 Body temperature 97.2 [degF] Dr. Laina Marinelli MD Work Phone: [facility] 07-04-2024 10:03-0400 Body weight 83.[address] Laina Marinelli MD Work Phone: [facility] 07-04-2024 10:03-0400 Diastolic blood pressure 86 mm[Hg] Dr. Laina Marinelli MD Work Phone: [facility] 07-04-2024 10:03-0400 Heart rate 76 /min Dr. Laina Marinelli MD Work Phone: [facility] 07-04-2024 10:03-0400 Respiratory rate 16 /min Dr. Laina Marinelli MD Work Phone: [facility] 07-04-2024 10:03-0400 SaO2% (BldA) [Mass fraction] 97 % Dr. Laina Marinelli MD Work Phone: [facility] 07-04-2024 10:03-0400 Systolic blood pressure 138 mm[Hg] Dr. Laina Marinelli MD Work Phone: [facility] 05-30-2024 09:44-0400 Body mass index (BMI) [Ratio] 31.7 kg/m2 Dr. Laina Marinelli MD Work Phone: [facility] 05-30-2024 09:44-0400 Body temperature 98.6 [degF] Dr. Laina Marinelli MD Work Phone: [facility] 05-30-2024 09:44-0400 Body weight 83.[address] Laina Marinelli MD Work Phone: [facility] 05-30-2024 09:44-0400 Diastolic blood pressure 72 mm[Hg] Dr. Laina Marinelli MD Work Phone: [facility] 05-30-2024 09:44-0400 Heart rate 71 /min Dr. Laina Marinelli MD Work Phone: [facility] 05-30-2024 09:44-0400 Respiratory rate 16 /min Dr. Laina Marinelli MD Work Phone: [facility] 05-30-2024 09:44-0400 SaO2% (BldA) [Mass fraction] 97 % Dr. Laina Marinelli MD Work Phone: [facility] 05-30-2024 09:44-0400 Systolic blood pressure 120 mm[Hg] Dr. Laina Marinelli MD Work Phone: [facility] 04-18-2024 12:39-0400 Body mass index (BMI) [Ratio] 29.3 kg/m2 Dr. Laina Marinelli MD Work Phone: [facility] 04-18-2024 12:39-0400 Body temperature 98.2 [degF] Dr. Laina Marinelli MD Work Phone: [facility] 04-18-2024 12:39-0400 Body weight 77.[address] Laina Marinelli MD Work Phone: [facility] 04-18-2024 12:39-0400 Diastolic blood pressure 80 mm[Hg] Dr. Laina Marinelli MD Work Phone: [facility] 04-18-2024 12:39-0400 Heart rate 89 /min Dr. Laina Marinelli MD Work Phone: [facility] 04-18-2024 12:39-0400 Respiratory rate 18 /min Dr. Laina Marinelli MD Work Phone: [facility] 04-18-2024 12:39-0400 SaO2% (BldA) [Mass fraction] 94 % Dr. Laina Marinelli MD Work Phone: [facility] 04-18-2024 12:39-0400 Systolic blood pressure 142 mm[Hg] Dr. Laina Marinelli MD Work Phone: [facility] 03-07-2024 12:32-0500 Body mass index (BMI) [Ratio] 27.8 kg/m2 Dr. Laina Marinelli MD Work Phone: [facility] 03-07-2024 12:32-0500 Body temperature 99.1 [degF] Dr. Laina Marinelli MD Work Phone: [facility] 03-07-2024 12:32-0500 Body weight 73.[address] Laina Marinelli MD Work Phone: [facility] 03-07-2024 12:32-0500 Diastolic blood pressure 78 mm[Hg] Dr. Laina Marinelli MD Work Phone: [facility] 03-07-2024 12:32-0500 Heart rate 71 /min Dr. Laina Marinelli MD Work Phone: [facility] 03-07-2024 12:32-0500 Respiratory rate 16 /min Dr. Laina Marinelli MD Work Phone: [facility] 03-07-2024 12:32-0500 SaO2% (BldA) [Mass fraction] 99 % Dr. Laina Marinelli MD Work Phone: [facility] 03-07-2024 12:32-0500 Systolic blood pressure 118 mm[Hg] Dr. Laina Marinelli MD Work Phone: [facility] 04-27-2023 13:23-0400 Body temperature 99.1 [degF] Dr. Laina Marinelli Work Phone: [facility] 04-27-2023 13:23-0400 Diastolic blood pressure 80 mm[Hg] Dr. Laina Marinelli Work Phone: [facility] 04-27-2023 13:23-0400 Heart rate 90 /min Dr. Laina Marinelli Work Phone: [facility] 04-27-2023 13:23-0400 Respiratory rate 16 /min Dr. Laina Marinelli Work Phone: [facility] 04-27-2023 13:23-0400 SaO2% (BldA) [Mass fraction] 95 % Dr. Laina Marinelli Work Phone: [facility] 04-27-2023 13:23-0400 Systolic blood pressure 117 mm[Hg] Dr. Laina Marinelli Work Phone: [facility] 04-27-2023 06:39-0400 Body height 162.[address] Laina Marinelli Work Phone: [facility] 04-27-2023 06:39-0400 Body mass index (BMI) [Ratio] 28 kg/m2 Dr. Laina Marinelli Work Phone: [facility] 04-27-2023 06:39-0400 Body weight [address] Laina Marinelli Work Phone: [facility] 04-03-2023 14:45-0500 Body mass index (BMI) [Ratio] 28.3 kg/m2 Dr. Laina Marinelli Work Phone: [facility] 04-03-2023 14:45-0500 Body temperature 99.1 [degF] Dr. Laina Marinelli Work Phone: [facility] 04-03-2023 14:45-0500 Body weight 74.[address] Laina Marinelli Work Phone: [facility] 04-03-2023 14:45-0500 Diastolic blood pressure 80 mm[Hg] Dr. Laina Marinelli Work Phone: [facility] 04-03-2023 14:45-0500 Heart rate 81 /min Dr. Laina Marinelli Work Phone: [facility] 04-03-2023 14:45-0500 Respiratory rate 16 /min Dr. Laina Marinelli Work Phone: [facility] 04-03-2023 14:45-0500 SaO2% (BldA) [Mass fraction] 99 % Dr. Laina Marinelli Work Phone: [facility] 04-03-2023 14:45-0500 Systolic blood pressure 122 mm[Hg] Dr. Laina Marinelli Work Phone: [facility] 10-19-2022 17:03-0400 Body height 162.[address] Laina Marinelli Work Phone: [facility] 10-19-2022 17:03-0400 Body mass index (BMI) [Ratio] 29.7 kg/m2 Dr. Laina Marinelli Work Phone: [facility] 10-19-2022 17:03-0400 Body temperature 97.3 [degF] Dr. Laina Marinelli Work Phone: [facility] 10-19-2022 17:03-0400 Body weight 78.[address] Laina Marinelli Work Phone: [facility] 10-19-2022 17:03-0400 Diastolic blood pressure 78 mm[Hg] Dr. Laina Marinelli Work Phone: [facility] 10-19-2022 17:03-0400 Heart rate 86 /min Dr. Laina Marinelli Work Phone: [facility] 10-19-2022 17:03-0400 Respiratory rate 18 /min Dr. Laina Marinelli Work Phone: [facility] 10-19-2022 17:03-0400 SaO2% (BldA) [Mass fraction] 98 % Dr. Laina Marinelli Work Phone: [facility] 10-19-2022 17:03-0400 Systolic blood pressure 138 mm[Hg] Dr. Laina Marinelli Work Phone: [facility] 10-16-2022 12:25-0400 Diastolic blood pressure 82 mm[Hg] [facility] 10-16-2022 12:25-0400 Heart rate 75 /min [facility] 10-16-2022 12:25-0400 Respiratory rate 18 /min [facility] 10-16-2022 12:25-0400 SaO2% (BldA) [Mass fraction] 98 % [facility] 10-16-2022 12:25-0400 Systolic blood pressure 135 mm[Hg] [facility] 10-16-2022 09:39-0400 Body mass index (BMI) [Ratio] 28.4 kg/m2 [facility] 10-16-2022 09:39-0400 Body weight 75.2 kg [facility] 10-16-2022 09:20-0400 Body height 162.56 cm [facility] 10-16-2022 09:20-0400 Body temperature 96.2 [degF] [facility] 03-15-2022 09:24-0500 Body height 162.6 cm Catarino Haas PA-C Work Phone: [facility] 03-15-2022 09:24-0500 Body weight 74.84 kg Catarino Haas PA-C Work Phone: [facility] 03-15-2022 09:24-0500 Diastolic blood pressure 93 mm[Hg] Catarino Haas PA-C Work Phone: [facility] 03-15-2022 09:24-0500 Heart rate 83 /min Catarino Haas PA-C Work Phone: [facility] 03-15-2022 09:24-0500 SaO2% (BldA) [Mass fraction] 100 % Catarino Haas PA-C Work Phone: [facility] 03-15-2022 09:24-0500 Systolic blood pressure 135 mm[Hg] Catarino Haas PA-C Work Phone: [facility] 02-21-2022 13:58-0500 Body height 162.6 cm Stanford Callejas MD Work Phone: [facility] 02-21-2022 13:58-0500 Body weight 75.75 kg Stanford Callejas MD Work Phone: [facility] 02-21-2022 13:58-0500 Diastolic blood pressure 78 mm[Hg] Stanford Callejas MD Work Phone: [facility] 02-21-2022 13:58-0500 Heart rate 92 /min Stanford Callejas MD Work Phone: [facility] 02-21-2022 13:58-0500 SaO2% (BldA) [Mass fraction] 95 % Stanford Callejas MD Work Phone: [facility] 02-21-2022 13:58-0500 Systolic blood pressure 114 mm[Hg] Stanford Callejas MD Work Phone: [facility] 02-01-2022 11:31-0500 Body height 162.6 cm Pst 1 [facility] 02-01-2022 11:31-0500 Body temperature 99 [degF] Pst 1 [facility] 02-01-2022 11:31-0500 Body weight 75.48 kg Pst 1 [facility] 02-01-2022 11:31-0500 Diastolic blood pressure 84 mm[Hg] Pst 1 [facility] 02-01-2022 11:31-0500 Heart rate 87 /min Pst 1 [facility] 02-01-2022 11:31-0500 Respiratory rate 18 /min Pst 1 [facility] 02-01-2022 11:31-0500 SaO2% (BldA) [Mass fraction] 98 % Pst 1 [facility] 02-01-2022 11:31-0500 Systolic blood pressure 141 mm[Hg] Pst 1 [facility] 11-02-2021 12:05-0400 Diastolic blood pressure 88 mm[Hg] [facility] Work Phone: 11-02-2021 12:05-0400 Heart rate 77 /min [facility] Work Phone: 11-02-2021 12:05-0400 Respiratory rate 16 /min [facility] Work Phone: 11-02-2021 12:05-0400 SaO2% (BldA) [Mass fraction] 97 % [facility] Work Phone: 11-02-2021 12:05-0400 Systolic blood pressure 140 mm[Hg] [facility] Work Phone: 11-02-2021 09:28-0400 Body height 162.56 cm [facility] Work Phone: 11-02-2021 09:28-0400 Body mass index (BMI) [Ratio] 28.6 kg/m2 [facility] Work Phone: 11-02-2021 09:28-0400 Body temperature 98.3 [degF] [facility] Work Phone: 11-02-2021 09:28-0400 Body weight 75.74 kg [facility] Work Phone: 10-10-2016 14:21-0400 BMI (Body Mass Index) 38.31 kg/m2 Shannon Hector PA-C [facility] Work Phone: 10-10-2016 14:21-0400 Body Temperature 98.5 [degF] Shannon Hector PA-C [facility] Work Phone: 10-10-2016 14:21-0400 BP Diastolic 82 mm[Hg] Shannon Hector PA-C [facility] Work Phone: 10-10-2016 14:21-0400 BP Systolic 128 mm[Hg] Shannon Hector PA-C [facility] Work Phone: 10-10-2016 14:21-0400 Height 157.48 cm Shannon Hector PA-C [facility] Work Phone: 10-10-2016 14:21-0400 Pulse (Heart Rate) 75 /min Shannon Hector PA-C [facility] Work Phone: 10-10-2016 14:21-0400 Weight 95.03 kg Shannon Hector PA-C [facility] Work Phone: 10-04-2016 15:35-0400 BMI (Body Mass Index) 38.07 kg/m2 Anthony Maier MD [facility] Work Phone: 10-04-2016 15:35-0400 Body Temperature 98.5 [degF] Anthony Maier MD [facility] Work Phone: 10-04-2016 15:35-0400 BP Diastolic 88 mm[Hg] Anthony Maier MD [facility] Work Phone: 10-04-2016 15:35-0400 BP Systolic 128 mm[Hg] Anthony Maier MD [facility] Work Phone: 10-04-2016 15:35-0400 Height 157.48 cm Anthony Maier MD [facility] Work Phone: 10-04-2016 15:35-0400 Pulse (Heart Rate) 71 /min Anthony Maier MD [facility] Work Phone: 10-04-2016 15:35-0400 Weight 94.43 kg Anthony Maier MD [facility] Work Phone: 09-29-2016 12:51-0400 BMI (Body Mass Index) 35.66 kg/m2 Angela Salmeron DARIANA [facility] No w Clinic Work Phone: 09-29-2016 12:51-0400 Body Temperature 97.9 [degF] Angela Salmeron DARIANA [facility] Work Phone: 09-29-2016 12:51-0400 BP Diastolic 78 mm[Hg] Angela Salmeron LPN [facility] Work Phone: 09-29-2016 12:51-0400 BP Systolic 118 mm[Hg] Angela Salmeron LPN [facility] Work Phone: 09-29-2016 12:51-0400 Height 162.56 cm Angela Salmeron LPN [facility] Work Phone: 09-29-2016 12:51-0400 Pulse (Heart Rate) 85 /min Angela Salmeron LPN [facility] Work Phone: 09-29-2016 12:51-0400 Respiratory Rate 12 /min Angela Salmeron LPN [facility] Work Phone: 09-29-2016 12:51-0400 Weight 94.26 kg 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 Laina Marinelli MD Work Phone: -Radiology [facility] Start: 09-25-2024 End: 09-25-[address] Andrew Pino MD -Radiology [facility] Work Phone: Start: 09-25-2024 End: 09-25-2024 ambulatory Laina Marinelli Facility:[facility] Start: 07-04-2024 End: 07-04-2024 Patient encounter procedure Willard [facility] Work Phone: Start: 07-04-2024 End: 07-04-[address] Laina Marinelli MD Work Phone: [facility] Work Phone: Start: 06-11-2024 ambulatory Laina Marinelli Facili ty:[facility] Start: 05-30-2024 Encounter for genera l adult medical examination without abnormal findings Kaden Flower [facility] Start: 05-30-2024 End: 05-30-2024 Patient encounter procedure Willard [facility] Work Phone: Start: 05-30-2024 End: 05-30-2024 ambulatory Laina Lozanodolores Facility:[facility] Start: 05-27-2024 End: 05-27-[address] Kaden Flower [facility] -[facility] Work Phone: Start: 05-27-2024 End: 05-27-2024 ambulatory Kaden Flower Facility:[facility] Start: 04-18-[address] Dolores Marinelli MD Work Phone: [facility] Start: 04-18-2024 End: 04-18-2024 [facility] Start: 04-18-2024 End: 04-18-2024 ambulatory Laina Lozanodolores Facility:[facility] Start: 03-07-2024 End: 03-07-2024 [facility] Start: 03-07-2024 End: 03-07-2024 ambulatory Laina Marinelli Facility:[facility] Start: 02-20-2024 End: 02-20-2024 ambulatory PHY WO ID REFERRING Facility:[facility] Start: 02-20-2024 End: 02-20-2024 Patient encounter procedure GELA ARCE ID REFERRING [facility] Start: 01-11-2024 End: 01-11-2024 ambulatory Kaden Sandborn Facility:[facility] Start: 11-21-2023 End: 11-21-2023 ambulatory [facility] Facility:[facility] Start: 11-15-[address] Dolores Marinelli MD Work Phone: [facility] Start: 11-15-2023 End: 11-15-2023 ambulatory [facility] [place] Start: 11-15-2023 End: 11-15-2023 [facility] Start: 11-13-2023 End: 11-13-2023 ambulatory [facility] Facility:[facility] Start: 04-27-2023 End: 04-27-2023 Admission to same day surgery center Dr. Laina Marinelli Work Phone: [facility]-Surgical Day Care Start: 04-27-2023 End: 04-27-[address] Laina Marinelli Work Phone: [facility] Work Phone: Start: 04-25-2023 End: 04-25-[address] Laina Marinelli Work Phone: [facility] Work Phone: Start: 04-25-2023 End: 04-25-[address] Laina Marinelli Work Phone: [facility]-Laboratory Work Phone: Start: 04-03-[address] Dolores Marinelli Work Phone: [facility] Start: 04-03-2023 End: 04-03-2023 Encounter for other preprocedural examination Dr. Laina Marinelli Work Phone: [facility] Start: 04-03-2023 End: 04-03-[address] Laina Marinelli Work Phone: [facility] Internal Medicine Work Phone: Start: 03-12-2023 End: 03-12-[address] Laina Marinelli Work Phone: [facility]-Cardiovascula r Services Work Phone: Start: 01-22-2023 End: 01-22-[address] Laina Marinelli Work Phone: [facility] Work Phone: Start: 01-22-2023 End: 01-22-[address] Laina Marinelli Work Phone: [facility] Work Phone: Start: 10-19-2022 End: 10-19-[address] Laina Marinelli Work Phone: [facility] Internal Medicine Work Phone: Start: 10-16-2022 End: 10-16-2022 Emergency department patient visit [facility]-Emergency Department Work Phone: Start: 03-31-2022 End: 03-31-2022 ambulatory LAINA MARINELLI Facility:[facility] Start: 03-31-2022 ambulatory LAINA MARINELLI Faci lity:[facility] Start: 03-29-2022 End: 03-29-2022 Telemedicine consultation with patient Catarino Baudilio SCHAEFFER Work Phone: [facility] Start: 03-29-2022 End: 03-29-2022 ambulatory Catarino Haas PA-C Work Phone: [facility] SURGERY DEPARTMENT Comment on above: S/P hernia repair (P rimary Dx) Start: 03-15-2022 End: 03-15-2022 ambulatory CHUCKEWONGBE B YVES [facility] Start: 03-15-2022 End: 03-15-2022 Patient encounter procedure Catarino Haas PA-C Work Phone: [facility] DEPARTMENT Comment on above: S/P hernia repair (P rimary Dx); Umbilical hernia without obstruction or gangrene Start: 03-02-2022 Telephone encounter Margarita Ribeiro RN CL [facility] DEPARTMENT Comment on above: Patient Question Start: 02-21-2022 End: 02-21-2022 ambulatory LIZBETHBE B YVES [facility] Start: 02-21-2022 End: 02-21-2022 Patient encounter procedure Stanford Callejas MD Work Phone: [facility] DEPARTMENT Comment on above: Umbilical hernia wit hout obstruction or gangrene Start: 02-08-2022 End: 02-09-2022 ambulatory NOERINN ALI Facility:[facility] Start: 02-01-2022 End: 02-02-2022 ambulatory [facility]N [facility] Facility:[facility] Start: 02-01-2022 [facility] Start: 02-01-2022 End: 02-01-2022 Admission to [facility] [address] Start: 02-01-2022 End: 02-01-2022 [address]ulatory [address] 1 Pre Surgical Testing Comment on above: Pre-op exam [Z01.818 (ICD-10-CM)] (Primary Dx); Ventral hernia without obstruction or gangrene [K43.9 (ICD-10-CM)] Start: 02-01-2022 End: 02-01-2022 Preprocedural examination done Pst 1 Pre Surgical Testing Start: 01-18-2022 End: 01-18-2022 ambulatory NOERINN [facility] Facility:[facility] Start: 11-23-2021 Orders Only Stanford Callejas MD Work Phone: [facility] DEPARTMENT Comment on above: Ventral hernia witho ut obstruction or gangrene (Primary Dx) Start: 11-22-2021 End: 11-22-2021 ambulatory STANFORD CALLEJAS Facility:[facility] Start: 11-04-2021 Chart abstracting Jahairaerinn Britta Yoo Julius Work Phone: [facility] SURGERY DEPARTMENT Start: 11-02-2021 End: 11-02-2021 Emergency department patient visit [facility]-Emergency Department Procedures Date Procedure Procedure Detail Performing Clinician Start: 05-27-2024 Vitamin D, 25-hydrox y measurement Dr. Laina Marinelli MD Work Phone: Comment on above: Vitamin D StatusDefi ciency: <20 ng/mL (50nmol/L)Insufficiency: 20-30 ng/mL (50-75 nmol/L)Sufficiency: 30-100 ng/mL (75-250 nmol/L)Toxicity: >100 ng/mL (>250 nmol/L) Start: 04-27-2023 Fluoroscopic guidance Julius Marinelli Work Phone: Start: 04-27-[address] Laina Marinelli Work Phone: Start: 04-27-[address] Carlotta Marinelli Work Phone: Start: 01-22-2023 MRI of lower extremity Dr. Laina Marinelli Work Phone: Start: 10-16-2022 Plain chest X-ray Start: 11-02-2021 Computed tomography of abdomen and pelvis with intravenous contrast Start: 10-17-2016 End: 10-17-2016 Dietary management education, guidance, and counseling Shannon Hector PA-C Start: 10-10-2016 End: 10-10-2016 Dietary management education, guidance, and counseling Shannon Hector PA-C Start: 10-10-2016 End: 10-10-2016 Negative pressure wound therapy dme = 50 sq cm Shannon Hector PA-C Work Phone: Start: 10-10-2016 End: 10-10-2016 Neg press wound tx, < 50 cm Shannon Hector PA-C Work Phone: Plan of Treatment Date Care Activity Detail Author Start: 02-09-2025 DIABETES SCREEN DIABETES SCREEN [facility] Start: 01-18-2025 DIABETES SCREEN DIABETES SCREEN [facility] Start: 04-18-2024 Evaluation of diagno stic study results [facility] Start: 04-27-2023 Catheterization of vein [facility] Start: 04-27-2023 Elevation of foot of bed [facility] Start: 04-27-2023 Neurovascular assessment [facility] Start: 04-27-2023 Patient discharge [facility] Start: 04-27-2023 Procedure discontinued [facility] Start: 04-27-2023 Provision of mobilit y device [facility] Start: 04-27-2023 Vital signs measurements [facility] Start: 04-27-2023 [facility] Start: 04-27-2023 Radiography of foot Foot [address] [facility] Start: 04-27-2023 XR Foot 2 Views [facility] Start: 04-03-2023 Evaluation of diagno stic study results [facility] Start: 10-19-2022 Patient referral [facility] Work Phone: Start: 03-29-2022 End: 04-13-2023 Ct abdomen & pelvis w/contrast material CT ABD/PEL W IVCON Radiology Routine S/P hernia repair Expected: 03/29/2022, Expires: 04/13/2023 [facility] Work Phone: Comment on above: Expected: 03/29/2022 , Expires: 04/13/2023 Start: 02-05-2022 DEPRESSION ASSESSMENT DEPRESSION ASS [facility] Start: 10-06-2021 Influenza vaccination INFLUENZA (#1) [facility] Start: 02-05-2021 DEPRESSION ASSESSMENT DEPRESSION ASS [facility] Start: 2018 SHINGRIX VACCINE (1 of 2) ESTEVEZ GRIX VACCINE (1 of 2) [facility] Start: 11-30-2016 End: 11-30-2016 Appointment Appointment [facility] Work Phone: Start: 11-01-2016 End: 11-01-2016 Appointment Appointment [facility] Work Phone: Start: 10-26-2016 End: 10-26-2016 Appointment Appointment [facility] Work Phone: Start: 10-25-2016 End: 10-25-2016 Appointment Appointment [facility] Work Phone: Start: 10-23-2016 End: 10-23-2016 Appointment Appointment [facility] Work Phone: Start: 10-19-2016 End: 10-19-2016 Appointment Appointment [facility] Work Phone: Start: 10-16-2016 End: 10-16-2016 Appointment Appointment [facility] Work Phone: Start: 10-10-2016 End: 10-10-2016 Appointment Appointment [facility] Work Phone: Start: 10-05-2016 End: 10-05-2016 Appointment Appointment [facility] Work Phone: Start: 10-04-2016 End: 10-04-2016 Appointment Appointment [facility] Work Phone: Start: 10-04-2016 End: 10-04-2016 *CBC with Differential *CBC with Differential [facility] Work Phone: Start: 10-04-2016 End: 10-04-2016 BNP *Brain Natriuretic Peptide BNP [facility] Work Phone: Start: 10-04-2016 End: 10-04-2016 Follow Up Appt 1 month Follow Up Appt 1 month [facility] Work Phone: Start: 10-04-2016 End: 10-04-2016 Hemoglobin A1c/Hemoglobin.total mass fraction (Bld) *HgA1C [facility] Work Phone: Start: 10-04-2016 End: 10-11-2016 Surgery Referral Surgery Referral Anthony Maier, [address], [address], [place], [address] [facility] Work Phone: Start: 10-04-2016 End: 10-04-2016 *CBC with Differential *CBC with Differential [facility] Work Phone: Start: 10-04-2016 End: 10-04-2016 BNP *Brain Natriuretic Peptide BNP [facility] Work Phone: Start: 10-04-2016 End: 10-04-2016 Follow Up Appt 1 month Follow Up Appt 1 month [facility] Work Phone: Start: 10-04-2016 End: 10-04-2016 HbA1c *HgA1C [facility] Work Phone: Start: 10-04-2016 End: 10-11-2016 Surgery Referral Surgery Referral Anthony Fofanahector, [address], [address], [place], [address] [facility] Work Phone: Start: 09-29-2016 End: 09-29-2016 Appointment Appointment [facility] Work Phone: Start: 2013 COLOGUARD (FIT-DNA) COLOGUARD (FIT-D NA) [facility] Start: 2013 Colonoscopy COLONOSCOPY [facility] Start: 2013 COLORECTAL CANCER SCREENING COLORECTAL CANCER SCREENING [facility] Start: [address] COLONOGRAPHY [facility] Start: 2013 DIABETES SCREEN DIABETES SCREEN [facility] Start: 2013 FECAL OCCULT BLOOD FECAL OCCULT BLOO D [facility] Start: 2013 LIPID SCREEN LIPID SCREEN [facility] Start: [address] [facility] Start: 2008 Mammography MAMMOGRAM [facility] Start: 1998 HPV TESTING HPV TESTING [facility] Start: 1989 PAP TESTING PAP TESTING [facility] Start: 05-08-1987 Urine microalbumin profile DTAP,TDAP,TD (1 - Tdap) [facility] Start: 1986 HEPATITIS C SCREENING HEPATITIS C SC REENING [facility] Start: 1986 HIV SCREENING HIV SCREENING [facility] Start: 1968 COVID-19 VACCINE (#1) COVID-19 VACCI NE (#1) [facility] Start: 1968 HEPATITIS B (1 of 3 - 3-dose series) HEPATITIS B (1 of 3 - 3-dose series) [facility] H&P for surgery H&P FOR SURGERY Procedures Routine Ventral hernia without obstruction or gangrene Ordered: 11/23/2021 [facility] Work Phone: Comment on above: Ordered: 11/23/2021 Patient Education [facility] Work Phone: Patient referral [place] Work Phone: Radionuclide imaging of perfusion of myocardium under exercise stress [facility] T4 free measurement [facility] Thyroid stimulating hormone measurement [facility] XR Lumbar spine 2 or 3 Views [facility] Payers Date Payer Category Payer Unknown [id number] 2023 Medicaid [id number] 31 [id number] 2023 Self-pay [id number] 2021 Unknown [id number] 2021 Unknown [id number] 2016 Unknown [id number] 1968 Unknown [id number] 2.16.8 [id number] Unknown [id number] 2.16.8 [id number] Unknown [id number] 2.16.8 [id number] Unknown [id number] 2.16.8 [id number] Unknown [id number] 2.16.8 [id number] Unknown [id number] 2.16.8 [id number] Unknown [id number] 2.16.8 [id number] Unknown [id number] 2.16.8 [id number] Unknown [id number] 2.16.8 [id number] Unknown [id number] 2.16.8 [id number] Unknown [id number] 2.16.8 [id number] Unknown [id number] 2.16.8 [id number] Unknown [id number] 2.16.8 [id number] Unknown [id number] 2.16.8 [id number] Unknown [id number] 2.16.8 [id number] Social History Date Type Detail Facility Start: 11-02-2021 End: 04-18-2023 Tobacco smoking status [facility] Unknown if ever smoked [facility] Start: 12-01-2019 None [facility] Start: 06-11-2020 Cigarettes [facility] Start: 1970 Sex Assigned At Female [facility] Start: 1970 Sex Assigned At Not on file [facility] Start: 10-25-2021 End: 11-22-2021 Exposure to SARS-CoV-2 (event) Not sure [facility] Start: 01-31-2022 Tobacco smoking status NHIS Ex-smoker [facility] End: 01-03-2022 History of tobacco use Current smoker [facility] End: 01-03-2022 History of tobacco use Cigarette Smoker [facility] Start: 01-31-2022 Cigarettes smoked current (pack per day) - Reported 0.5 [facility] Start: 01-31-2022 Tobacco use and exposure Smokeless tobacco non-user [facility] Start: 02-01-2022 End: 03-15-2022 Alcohol intake Lifetime non-drinker (finding) [facility] Start: 02-09-2022 History SDOH Financial 3 [facility] Start: 02-09-2022 History SDOH Food Worry 1 [facility] Start: 02-09-2022 History SDOH Transport Med 2 [facility] Start: 04-18-2023 Tobacco smoking status NHIS Current some day smoker [facility] NEGATED: Highlighted row [facility] Medical Equipment Procedure Code Equipment Code Equipment Origin al Text Equipment Identifier Dates Fusion, joint Bone matrix impl ant, composite [id number] FDA Start: 04-27-2023 Fusion, joint ([id number]) ()[id number] FDA Start: 04-27-2023 Fusion, joint ([id number]) ()[id number] FDA Start: 04-27-2023 Fusion, joint ([id number]) ()[id number] FDA Start: 04-27-2023 Fusion, joint Orthopaedic bone screw (non-sliding) ()[id number] FDA Start: 04-27-2023 Fusion, joint Orthopaedic bone screw (non-sliding) ()[id number] FDA Start: 04-27-2023 Fusion, joint Orthopaedic bone screw (non-sliding) ()[id number] FDA Start: 04-27-2023 Fusion, joint Orthopaedic fixa tion plate, non-bioabsorbable ()[id number] FDA Start: 04-27-2023 Fusion, joint Orthopaedic fixa tion plate, non-bioabsorbable ()[id number] FDA Start: 04-27-2023 Fusion, joint Orthopaedic bone screw (non-sliding) ()[id number] FDA Start: 04-27-2023 Fusion, joint Orthopaedic bone screw (non-sliding) ()[id number] FDA Start: 04-27-2023 Fusion, joint Orthopaedic bone screw (non-sliding) ()[id number] FDA Start: 04-27-2023 Fusion, joint Orthopaedic bone screw (non-sliding) ()[id number] FDA Start: 04-27-2023 Fusion, joint ([id number]) [id number] FDA Start: 04-27-2023 Mesh Progrip Vita Pet [id number] Surgical Self Fixate Flat Sheet Hernia Sterile - [id number] Start: 02-08-2022 Goals Date Patient Goal Desired Activity /State Functional Status Date Assessment Result Facility 04-27-2023 Functional status Bathroom Privilege [facility] Work Phone: Mental Status Date Assessment Result Facility 04-27-2023 Cognitive function Level Of Cons ciousness Appropriate;Drowsy [facility] Work Phone: 04-27-2023 Cognitive function Voice/Name [facility] Work Phone: Clinical Notes 11-22-2021 to 07-04-2024 Note Date & Type Note Facility 07-04-2024 Evaluation note Diagnosis Onset Date Resolution Anxiety and depression chronic Ma y 2024 9:58am [facility] Work Phone: 1(194) 396-666401-31-2025 Evaluation note* Diagnosis Onset Date Resolution Status Admit Date Tobacco abuse acute February 12:30pm Anxiety and depression chronic Ja nuary 2024 12:30pm Chronic back pain chronic March 07, 2024 12:30pm Chest pain acute April 18 12:30pm Eustachian tube dysfunction acute April 18, 2024 12:30pm Anxiety and depression chronic [facility] 2024 12:30pm Anxiety and depression chronic Ap ril 2024 9:32am [facility] Work Phone: 1(142) 920-250603-22-2024 Procedure [facility] 03-31-2022 NoteHNO ID: [id number] Author: RT Evangelina(R) Service: ? Author Type: Lead Radiologic Technologist Type: Progress Notes Filed: 03/31/2022 3:22 PM Note Text: Radiology Service Progress Note DATE OF SERVICE: March 31, 2022 TIME: 3:21 PM PATIENT IDENTITY VERIFICATION COMPLETED USING TWO (2) STANDARD IDENTIFIERS: Name and Date of confirmed by patient verbally. FALL SCREENING: Has the patient had 2 falls in the last year or 1 fall with injury or currently using an Ambulatory Assistive Device (Walker, Cane, Wheelchair, Crutches, etc.)? No PATIENT GENDER DATA: Female. status: : No status: NO. PATIENT RELEVANT IMPLANT DATA REVIEWED: Yes ALLERGIES: Reviewed and unchanged CONTRAST ALLERGY: NO. EXAM: CT -CONTRAST INDUCED NEPHROPATHY RISK FACTORS: Not applicable CREATININE: Creatinine Date Value Ref Range Status 02/09/2022 0.59 0.58 - 0.96 mg/dL Final Estimated Glomerular Filtration Rate Date Value Ref Range Status 02/09/2022 108 >=60 mL/min/1.73m? Final Comment: Estimated Glomerular Filtration Rate (eGFR) is calculated using the 2020 CKD-EPI creatinine equation. This equation utilizes serum creatinine, sex, and age as parameters. The creatinine assay has traceable calibration to isotope dilution-mass spectrometry. Refer to KDIGO guidelines for clinical interpretation. In patients with unstable renal function, e.g. those with acute kidney injury, the eGFR may not accurately reflect actual GFR. P.O.C.T. RESULTS: POC done: Yes, See Lab Tab March 31, 2022 TREATMENT: N/A PERIPHERAL IV DATA: Ambulatory: A peripheral IV was started in the Left antecubital site with a Angio cath: 22 gauge. RADIOLOGY DEPARTMENT: CT; Exam(s) Completed: Abdomen/Pelvis SIGNATURE: RT Dede(R) PATIENT NAME: Isak Harvey DATE: March 31, 2022 TIME: 3:21 [facility]02-22-2023 NoteHNO ID: [id number] Author: Catarino Haas PA-C Service: ? Author Type: Physician Shipping Processor Type: Progress Notes Filed: 10/19/2022 2:55 PM Note Text: Catarino Haas PA-C Surgical Oncology [address] [facility], [address] [place], [place] [address] TELEPHONE VISIT NOTE SUBJECTIVE Isak Harvey is a 51 year old female on the phone today for a follow up visit. The patient is s/p ventral hernia repair on 02/08/2022. She was last evaluated in office two weeks ago at which time she was continuing to have abdominal pain following surgery. She states her pain has improved very slightly, but is still averaging around a 5/10. The pain is worse around her umbilicus area. She denies nausea, vomiting, changes in bowel movements, fevers/chills. The ROS, medical, surgical, family, and social history were reviewed by Catarino Haas PA-C. Plan S/p hernia repair Discussed with the patient her ongoing symptoms of abdominal pain following hernia repair. She is scheduled for a CT scan of the abdomen/pelvis in a few days and I advised she should proceed with scan. She feels as though the pain is still moderate in severity and is almost 2 months out from surgery. I advised her I will review scan once completed. If normal findings, should continue with pain management. If abnormal findings, will call with plan. All questions were answered to the patient's satisfaction and she is agreeable with the plan. Total time of telephone encounter: 10 minutes Catarino Haas PA-C 03/29/2022 2:38 [facility]02-22-2023 History of Present illness Narrative* Catarino Haas PA-C - 03/29/2022 2:38 PM EST Images from the original note were not included. Catarino Haas PA-C Surgical Oncology [address] [facility], [address] [place] [id number] TELEPHONE VISIT NOTE SUBJECTIVE Isak Harvey is a 51 year old female on the phone today for a follow up visit. The patient is s/p ventral hernia repair on 02/08/2022. She was last evaluated in office two weeks ago at which time she was continuing to have abdominal pain following surgery. She states her pain has improved very slightly, but is still averaging around a 5/10. The pain is worse around her umbilicus area. She denies nausea, vomiting, changes in bowel movements, fevers/chills. The ROS, medical, surgical, family, and social history were reviewed by Catarino Haas PA-C. Plan S/p hernia repair Discussed with the patient her ongoing symptoms of abdominal pain following hernia repair. She is scheduled for a CT scan of the abdomen/pelvis in a few days and I advised she should proceed with scan. She feels as though the pain is still moderate in severity and is almost 2 months out from surgery. I advised her I will review scan once completed. If normal findings, should continue with pain management. If abnormal findings, will call with plan. All questions were answered to the patient's satisfaction and she is agreeable with the plan. Total time of telephone encounter: 10 minutes Catarino Haas PA-C 03/29/2022 2:38 PM documented in [facility] encounterSum[facility]23 NoteHNO ID: [id number] Author: Catarino Haas PA-C Service: ? Author Type: Physician Shipping Processor Type: Progress Notes Filed: 10/16/2022 3:02 PM Note Text: Catarino Haas PA-C Hepatobiliary Surgery [address] [facility], [address] [place] [address] SUBJECTIVE Isak Harvey is a 51 year old female here for a post op visit. The patient is s/p ventral hernia repair by Dr. Callejas on 02/08/2022. She saw Dr. Callejas for an initial post op visit on 02/21/2022 at which time she was continuing to have pain in the epigastric region. She states she feels as though the pain has improved slightly since her last visit, but it is still moderate in severity. She denies constipation, diarrhea, nausea, vomiting, fever/chills. She is on chronic pain medications, but she states the oxycodone helps better. The ROS, medical, surgical, family, and social history were reviewed by Catarino Haas PA-C OBJECTIVE BP 135/93 Pulse 83 Ht 162.6 cm (5' 4) Wt 74.8 kg (165 lb) SpO2 100% BMI 28.32 kg/m? BMI 28.32 kg/(m2) Physical Exam: General: Patient seated in no acute distress Respiratory: Breathing comfortably on room air Cardiovascular: Regular rate and rhythm Abdomen: Soft, diffusely tender, non distended. Incisions dry intact without erythema, edema or discharge. No sign of hernia recurrence. Neurologic: She is alert and oriented to person, place, and time. Plan S/p hernia repair The patient is now 5 weeks s/p ventral hernia repair and continuing to have moderate abdominal pain. She is requesting a refill of medication, but per her pharmacist, she is on chronic pain medication, and cannot have any further pain medication at this time. I told her it is not unexpected to have prolonged pain and healing time following this surgery. I will order a CT scan to check for any complications, though I am not concerned about infection. Will review results of scan with patient once completed. Informed her she will need to follow up with pain management for pain medication recommendations. All questions were answered to the patient's satisfaction and she is agreeable with the plan. Catarino Haas PA-C 03/20/2022 12:54 PM I spent a total of 30 minutes on the date of the service which included preparing to see the patient, [id number] patient care, completing clinical documentation, obtaining and/or reviewing separately obtained history, performing a medically appropriate examination, counseling and educating the patient/family/caregiver, and ordering medications, tests, or procedures.[facility]02-08-2023 History of Present illness Narrative* Catarino Haas PA-C - 03/15/2022 9:15 AM EST Images from the original note were not included. Catarino Haas PA-C Hepatobiliary Surgery [address] [facility], [address] [place] [address] SUBJECTIVE Isak Harvey is a 51 year old female here for a post op visit. The patient is s/p ventral hernia repair by Dr. Callejas on 02/08/2022. She saw Dr. Callejas for an initial post op visit on 02/21/2022 at which time she was continuing to have pain in the epigastric region. She states she feels as though the pain has improved slightly since her last visit, but it is still moderate in severity. She denies constipation, diarrhea, nausea, vomiting, fever/chills. She is on chronic pain medications, but she states the oxycodone helps better. The ROS, medical, surgical, family, and social history were reviewed by Catarino Haas PA-C OBJECTIVE BP 135/93 Pulse 83 Ht 162.6 cm (5' 4) Wt 74.8 kg (165 lb) SpO2 100% BMI 28.32 kg/m BMI 28.32 kg/(m^2) Physical Exam: General: Patient seated in no acute distress Respiratory: Breathing comfortably on room air Cardiovascular: Regular rate and rhythm Abdomen: Soft, diffusely tender, non distended. Incisions dry intact without erythema, edema or discharge. No sign of hernia recurrence. Neurologic: She is alert and oriented to person, place, and time. Plan S/p hernia repair The patient is now 5 weeks s/p ventral hernia repair and continuing to have moderate abdominal pain. She is requesting a refill of medication, but per her pharmacist, she is on chronic pain medication, and cannot have any further pain medication at this time. I told her it is not unexpected to haveprolonged pain and healing time following this surgery. I will order a CT scan to check for any complications, though I am not concerned about infection. Will review results of scan with patient oncecompleted. Informed her she will need to follow up with pain management for pain medication recommendations. All questions were answered to the patient's satisfaction and she is agreeable with the plan. Catarino Haas PA-C 03/20/2022 12:54 PM documented in this encounterSumma Health02-07-2023 NoteHNO ID: [id number] Author: Stanford Callejas MD Service: ? Author Type: Physician Type: Progress Notes Filed: 03/14/2022 10:04 AM Note Text: Patient referred by: No referring provider defined for this encounter. Patient presents with: Post Op Follow Up: Mrs. Harvey is here today for a s/p incisional hernia. HPI: This is a post operative visit. 51-year-old female here for follow-up from a robotic hernia repair. She still having pain in the epigastric region. She has no nausea or vomiting. She denies fevers or chills. She has no diarrhea or constipation. She would like a refill for pain medication. PAST MEDICAL HISTORY Diagnosis Date Arthritis Back pain Cervical cancer (HCC) Fatigue Lab test positive for detection of COVID-19 virus 02/2021 Restless legs syndrome Scoliosis Tubal Ventral hernia PAST SURGICAL HISTORY Procedure Laterality Date OVARIAN CYSTECTOMY PAST SURGICAL HISTORY OF Left 2012 tumor side TOTAL ABDOM HYSTERECTOMY N/A TOTAL KNEE REPLACEMENT Left 2001 FAMILY HISTORY Problem Relation Age of Onset Osteoporosis Mother Hypertension Mother Diabetes Father other (CVA) Father Ovarian cancer Sister Social History Tobacco Use Smoking status: Former Packs/day: 0.50 Years: 20.00 Pack years: 10.00 Types: Cigarettes Quit date: 01/03/2022 Years since quittin.1 Smokeless tobacco: Never Substance Use Topics Alcohol use: Never Drug use: Never Current Outpatient Medications Medication Sig tiZANidine (ZANAFLEX) 4 mg tablet Take 1 tablet by mouth at bedtime as needed. Nicotine 21-14-7 mg/24 hr ptds Apply 1 Patch as directed once daily for 14 days. (Patient taking differently: Apply 1 Patch as directed as needed.) Ascorbic Acid 500 mg cpER Take 1 capsule by mouth once daily. pregabalin (LYRICA) 75 mg capsule Take 75 mg by mouth twice daily. albuterol sulfate 90 mcg/actuation breath activated powder inhaler Inhale 2 Puffs as instructed every 6 hours as needed for wheezing/shortness of breath. fluticasone propionate (FLOVENT HFA) 50 mcg/actuation inhaler Inhale 2 Puffs as instructed as needed. celecoxib (CELEBREX) 200 mg capsule Take 200 mg by mouth once daily. oxyCODONE IR (ROXICODONE) 5 mg immediate release tablet Take 1 tablet by mouth every 6 hours as needed for pain. No current facility-administered medications for this visit. ALLERGIES Allergen Reactions Tramadol Unknown REVIEW OF SYSTEMS: GENERAL: No weight loss, malaise or fevers GI: Negative for nausea , vomiting, diarrhea, constipation, and signs of jaundice Positive for abdominal pain epigastrium PHYSICAL EXAM: BP 114/78 Pulse 92 Ht 5' 4 (1.63m) Wt 167 lb (75.8kg) SpO2 95% BMI 28.65 kg/(m2). GENERAL APPEARANCE: Well appearing, alert, in no acute distress, well-hydrated, well nourished.. ABDOMEN: Abdomen is soft. Incisions are healed. There are no signs of infection. No signs of recurrence NEURO: Alert, oriented x3, no asterixis, speech clear and articulate, and SANCHEZ DATA: Diagnostic tests reviewed for today's visit: No new labs Greater than 50% of the direct patient contact time was spent in counseling or coordination of care. ASSESSMENT / PLAN 1. Umbilical hernia without obstruction or gangrene Doing well. I will give her a refill for pain medication. She will follow-up with us if she still has pain in several weeks. - oxyCODONE IR (ROXICODONE) 5 mg immediate release tablet; Take 1 tablet by mouth every 6 hours as needed for pain. Dispense: 20 tablet; Refill: 0 Stanford Callejas [facility]02-07-2023 History of Present illness Narrative* Stanford Callejas MD - 03/14/2022 10:00 AM EST Patient referred by: No referring provider defined for this encounter. Patient presents with: Post Op Follow Up: Mrs. Harvey is here today for a s/p incisional hernia. HPI: This is a post operative visit. 51-year-old female here for follow-up from a robotic hernia repair. She still having pain in the epigastric region. She has no nausea or vomiting. She denies fevers or chills. She has no diarrhea or constipation. She would like a refill for pain medication. PAST MEDICAL HISTORY Diagnosis Date Arthritis Back pain Cervical cancer (HCC) Fatigue Lab test positive for detection of COVID-19 virus 02/2021 Restless legs syndrome Scoliosis Tubal Ventral hernia PAST SURGICAL HISTORY Procedure Laterality Date OVARIAN CYSTECTOMY PAST SURGICAL HISTORY OF Left 2012 tumor side TOTAL ABDOM HYSTERECTOMY N/A 2000s TOTAL KNEE REPLACEMENT Left 2001 FAMILY HISTORY Problem Relation Age of Onset Osteoporosis Mother Hypertension Mother Diabetes Father other (CVA) Father Ovarian cancer Sister Social History Tobacco Use Smoking status: Former Packs/day: 0.50 Years: 20.00 Pack years: 10.00 Types: Cigarettes Quit date: 01/03/2022 Years since quittin.1 Smokeless tobacco: Never Substance Use Topics Alcohol use: Never Drug use: Never Current Outpatient Medications Medication Sig tiZANidine (ZANAFLEX) 4 mg tablet Take 1 tablet by mouth at bedtime as needed. Nicotine 21-14-7 mg/24 hr ptds Apply 1 Patch as directed once daily for 14 days. (Patient taking differently: Apply 1 Patch as directed as needed.) Ascorbic Acid 500 mg cpER Take 1 capsule by mouth once daily. pregabalin (LYRICA) 75 mg capsule Take 75 mg by mouth twice daily. albuterol sulfate 90 mcg/actuation breath activated powder inhaler Inhale 2 Puffs as instructed every 6 hours as needed for wheezing/shortness of breath. fluticasone propionate (FLOVENT HFA) 50 mcg/actuation inhaler Inhale 2 Puffs as instructed as needed. celecoxib (CELEBREX) 200 mg capsule Take 200 mg by mouth once daily. oxyCODONE IR (ROXICODONE) 5 mg immediate release tablet Take 1 tablet by mouth every 6 hours as needed for pain. No current facility-administered medications for this visit. ALLERGIES Allergen Reactions Tramadol Unknown REVIEW OF SYSTEMS: GENERAL: No weight loss, malaise or fevers GI: Negative for nausea , vomiting, diarrhea, constipation, and signs of jaundice Positive for abdominal pain epigastrium PHYSICAL EXAM: BP 114/78 Pulse 92 Ht 5' 4 (1.63m) Wt 167 lb (75.8kg) SpO2 95% BMI 28.65 kg/(m^2). GENERAL APPEARANCE: Well appearing, alert, in no acute distress, well-hydrated, well nourished.. ABDOMEN: Abdomen is soft. Incisions are healed. There are no signs of infection. No signs of recurrence NEURO: Alert, oriented x3, no asterixis, speech clear and articulate, and SANCHEZ DATA: Diagnostic tests reviewed for today's visit: No new labs Greater than 50% of the direct patient contact time was spent in counseling or coordination of care. ASSESSMENT / PLAN 1. Umbilical hernia without obstruction or gangrene Doing well. I will give her a refill for pain medication. She will follow-up with us if she still has pain in several weeks. - oxyCODONE IR (ROXICODONE) 5 mg immediate release tablet; Take 1 tablet by mouth every 6 hours as needed for pain. Dispense: 20 tablet; Refill: 0 Stanford Callejas MD documented in this encounterSumma Health01-26-2023 Miscellaneous Notes* Telephone Encounter - Margarita Ribeiro RN - 03/02/2022 9:53 AM EST Patient Phone Call: Question Patient called in concerned about discomfort and burning sensation after hernia surgery on 02.08.2022. Pt states last week she didn't feel this way. I asked the pt if she is doing more, activity barker, this week versus last week and a definitive answer was not received. I encouraged the patient to listen to her body and dial back her activity based on her body's response-increased pain. I also instructed the patient that she can use an ice pack to the area and an abdominal binder for extra supportto the area, which she states she was given. Pt conveyed an understanding and agreement to try the suggestions given and was encouraged to call with any further questions and/or concerns. documented in this encounterSumma Health01-05-2023 NoteHNO ID: [id number] Author: Catarino Phillips RN Service: Care Management Author Type: Registered Nurse Type: Care Mgt Initial Assessment Filed: 02/09/2022 11:49 AM Note Text: CARE MANAGEMENT: ASSESSMENT AND DISCHARGE PLAN SERVICE DATE: February 09, 2022 SERVICE TIME: 11:45 AM PRIMARY CARE PHYSICIAN: Laina Marinelli MD (Confirmed with patient) Primary Contact: Extended Emergency Contact Information Primary Emergency Contact: Ras Harvey Mobile Relation: Son Secondary Emergency Contact: Rosalinda Hravey Mobile Relation: Daughter ADMISSION STATUS: Extended Recovery Insurance Provider: ANGELICA HERR PPO OOS NEEDS PRIOR TO DISCHARGE Needs Prior to Discharge: Pharmacy Bedside Delivery POTENTIAL TRANSITION PLANS Home Based on clinical judgement, Care Management will address the following needs: No transitional/discharge planning needs at this time Patient's perception of need for this admission: Scheduled surgery ADVANCE DIRECTIVES Current Advance Directive: None Play Therapist Attempted to Assist with AD Completion: Yes Action: Education Provided MS/BEHAVIOR Baseline Mental Status Prior to this Illness what was the patient's Baseline Mental Status?: Alert AND Oriented Prior to this illness, has anyone described the patient having any of the following behaviors?: Not Applicable Relationship of the informant to the patient:: Self READMISSION Last Discharge Date: N/A Is this Within the Past 30 days? From what level of care did patient present?: Home Last discharge within 30 days: No PATIENT SCREEN Patient/[place]/[employer] Officer Stated Goals: To return home to life as it was Under the care of a PCP?: Yes, External Provider Provider Name: Laina Marinelli MD Last Known Visit: Per patient, A year and a half ago Does the patient have transportation upon discharge?: Yes Situation: Patient states that her signficiant other Jonnathan will provide transportation at discharge Use of any community resources?: No Does the patient have a stable and supportive living arrangement and home setting?: Yes Situation: Patient from home with her significant other Jonnathan prior to admission. Plan is for patient to return home at discharge. Patient reports that she has a good family support system in place. Are there any potential risks or gaps identified by risk/functional/fall,etc. scores in the EMR?: No Any potential risks related to substance abuse and/or behavioral health?: No Based on clinical judgement, Care Management will address the following needs: No transitional/discharge planning needs at this time CAREGIVER ASSESSMENT Caregiver is ready, willing and able to meet the patient's needs as recommended by the inter-professional team:: No Caregiver needed Patient's transition needs and plan for meeting these needs: Home with follow up care MEDICAL Medical Needs: None Health Issues Impacting Discharge Plan: Newly diagnosed Newly Diagnosed: s/p robotic ventral hernia repair with mesh and bilateral inguinal hernia repairs with mesh Medication Adherance I am convinced of the importance of my prescription medication: 0 - Agree Completely I worry that my prescription medication will do more harm than good to me : 0 - Disagree Completely I feel financially burdened by my [id number] expenses for my prescription medication:: 0 - Disagree Completely Risk Score: 0 Patient is categorized as: Low risk < 2 SOCIAL Living Arrangements: Home Lives With: Partner/Significant Other Financial Resources: Employed Supportive Patient Contact:: Yes Contact Resources: Family Is Patient Psychosocially Complex?: No Contact Resources: Family Health Literacy How often do you need to have someone help you when you read instructions, pamphlets, or other written material from your doctor or pharmacy? : 1 - Never How confident are you filling out medical forms by yourself?: 1 - Extremely If Patient scores > 3 on either question, the following interventions were put into place:: Patient did not score > 3 on either question. Food Insecurity: No Food Insecurity Worried About Running Out of Food in the Last Year: Never true Ran Out of Food in the Last Year: Never true Financial Resource Strain: Medium Risk Difficulty of Paying Living Expenses: Somewhat hard Transportation Needs: No Transportation Needs Lack of Transportation (Medical): No Lack of Transportation (Non-Medical): No Housing Stability: Low Risk Unable to Pay for Housing in the Last Year: No Number of Places Lived in the Last Year: 1 Unstable Housing in the Last Year: No BEHAVIORAL/COGNITIVE Psychosocial Psychosocial Needs: None FUNCTIONAL How do you manage to accomplish the following: Independent: Ambulation;Bathe/Shower;Dress;Meals/Meal Prep;Going to the bathroom;Medication Management;Transportation to appointments/community S (more content not included)...[facility]01-05-2023 NoteHNO ID: [id number] Author: Kimberly Damon MD Service: General Surgery Author Type: Resident Type: Progress Notes Filed: 02/09/2022 7:19 AM Note Text: Attestation signed by Stanford Callejas MD at 02/14/2022 3:18 PM TEACHING PROVIDER (Physician/PA/MARRIAGE AND FAMILY SOCIAL WORKER) NOTE OF PERSONAL INVOLVEMENT IN CARE: I have personally seen and examined the patient and performed the medical decision-making components. I have reviewed the Medical Student's documentation and verified the findings in the note as written. Any additions or changes are noted in bold/italics. February 14, 2022 Stanford Callejas MD 3:18 PM Plan of care discussed with: Provider, RN, Patient. Resident Supervision of Medical Student I personally saw and examined the patient. I reviewed the medical student's note. I agree with the medical student's assessment and plan unless otherwise noted below. - Patient having some pain this am, rating it at 7/10. On and off of NC with saturations in the low 90s/high 80s - Encourage Pulmonary hygiene. - Incision sites with steris c/d/I. - If pain is better controlled throughout the day, may be able to go home later today. - PRN pain/nausea control - DVT: LVX Signature: Kimberly Damon MD Date: 02/09/2022 Time: 7:13 AM MEDICAL STUDENT Elective General Surgery ([facility]) Progress Note This note was generated by a medical student working under the supervision of a resident and attending physician. When co-signed, the physical exam findings, assessment, and plan as written below are are considered accurate. SERVICE DATE: February 09, 2022 Elective General Surgery ([facility]) Service Pager: For questions or concerns Mon-Fri 6a-5p please page [phone]. After 5pm and on Weekends and Holidays, please page [phone] if in ICU or [phone] if on RNF. SUBJECTIVE: Isak Gonzales is a 51 year old female with a PMHx of recurrent ventral hernia s/p day 1 of robotic ventral hernia repair with mesh and bilateral inguinal hernia repairs with mesh. She was seen returning from bed from using the restroom. She stated she couldn't catch her breath. Said her O2 dropped down to 80% on RA shortly before entering the room. She says nothing like this has happened before. Overnight, her pain was moderately managed with PRN medication. She said she had no idea that it would hurt this much. She does say that the pills help and that she might take her morphine, but is trying to manage without it. She has been using the spirometer. She has an appetite and plans to order breakfast. She is tolerating liquids. Tolerating diet DIET REGULAR Nausea No Emesis No Flatus No Bowel movement No Pain Controlled No Ambulating Yes OBJECTIVE: Vitals: Temp (24hrs), Av.4 ?C (97.6 ?F), Min:36.1 ?C (97 ?F), Max:36.6 ?C (97.9 ?F) BP 113/76 Pulse 80 Temp 36.5 ?C (97.7 ?F) (Oral) Resp 16 Wt 80.2 kg (176 lb 12.9 oz) SpO2 93% BMI 30.35 kg/m? O2 Therapy: Nasal Cannula IANDO: Date 02/08/22699 - 02/09/22 0659 02/09/22699 - 02/10/22 0659 Shift 1542-7095 3657-8532 3431-4387 24 Hour Total 8459-2500 3478-8372 8563-7804 24 Hour Total INTAKE IV 1600 1600 Volume (mL) (ceFAZolin iv piggyback 2 g in D5W (iso-osmotic) 100 mL (ANCEF)) 100 100 Volume (mL) (lactated ringers iv infusion) 1000 1000 Volume (mL) (lactated ringers iv infusion) 500 500 Shift Total 1600 1600 OUTPUT Urine 155 155 OR Urine Output 155 155 Urine Incontinence/Not Saved 1 x 1 x Blood 25 25 Estimated Blood loss 25 25 Shift Total 180 180 Weight (kg) 80.2 80.2 80.2 80.2 80.2 80.2 MEDICATIONS Current Facility-Administered Medications Medication Dose Route Frequency pregabalin 75 mg cap(s) (LYRICA) 75 mg ORAL BID ipratropium-albuterol 3 mL nebulizer solution (DUONEB) 3 mL INHALATION q 6 H PRN tiZANidine 4 mg tab(s) (ZANAFLEX) 4 mg ORAL AT BEDTIME PRN enoxaparin 40 mg injection (LOVENOX) 40 mg SUBCUTANEOUS DAILY NaCl 0.9% iv flush bag 20 mL INTRAVENOUS PRN ondansetron 4 mg tab(s) (ZOFRAN) 4 mg ORAL q 6 H PRN Or ondansetron (PF) 4 mg injection (ZOFRAN) 4 mg INTRAVENOUS q 6 H PRN acetaminophen 1,000 mg tab(s) (TYLENOL) 1,000 mg ORAL QID oxyCODONE IR 5-10 mg tab(s) (ROXICODONE) 5-10 mg ORAL q 6 H PRN morphine 2 mg injection 2 mg INTRAVENOUS q 3 H PRN keTORolac 15 mg injection (TORADOL) 15 mg INTRAVENOUS q 6 H budesonide 0.25 mg/2 mL 0.25 mg (PULMICORT) 0.25 mg INHALATION BID Labs: Recent Labs 02/09/22 0127 NA 138 K 4.2 CHLOR 102 CO2 26 BUN 10 CREAT 0.59 GLUC 129* ANION 10 CA 9.1 WBC 10.47 HB 12.1 HCT 36.9 PLT 267 Exam: GENERAL: appears in pain, difficulty catching breath, overall doing as expected HEENT: normocephalic, atraumatic, EOMI NECK: trachea midline, no JVD LUNGS: Unlabored breathing, equal chest rise ame (more content not included)... [facility]01-05-2023 NoteHNO ID: [id number] Author: Shawna Love RN Service: Nursing Author Type: Registered Nurse Type: Nursing Progress Note Filed: 02/09/2022 12:27 AM Note Text: Report given to Ashleigh PORTER 52A.[facility]01-05-2023 NoteCOVID 19 RESULT: SARS-CoV-2 (Agent of COVID-19) Not Detected by RT-PCR or equivalent method. This test has been authorized by FDA under an Emergency Use Authorization (EUA). INFLUENZA A PCR: Negative for Influenza A by RT-PCR INFLUENZA B PCR: Negative for Influenza B by RT-PCR RSV PCR: Negative for Respiratory Syncytial Virus (RSV) by PCRRiverview Psychiatric CenterComment on above:Performed By: #### [id number] ####[facility] LABORATORYCLIA [id number] [place] [address] [place] [id number] NoteHNO ID: [id number] Author: Anusha Edge RN Service: Nursing Author Type: Registered Nurse Type: Nursing Progress Note Filed: 02/08/2022 1:40 PM Note Text: Dr Almaraz at [facility]01-04-2023 NoteHNO ID: [id number] Author: Consuelo Varner APRN.CRNA Service: Anesthesiology Author Type: Nurse Fuel Truck Driver Type: Anesthesia Procedure Notes Filed: 02/08/2022 10:02 AM Note Text: Attestation signed by Jassi Almaraz MD at 02/08/2022 12:00 PM agree ANESTHESIOLOGY PROCEDURE NOTE Airway General Information Procedure Start Time/Medication Administration: 02/08/2022 9:13 AM Patient location during procedure: OR Timeout Performed Pre-procedure: timeout performed Consent Obtained: Yes Patient identity confirmed: patient and arm band Staffing Anesthesiologist: Jassi Almaraz MD FAMILY PSYCHOLOGIST: Consuelo Varner APRN.FAMILY PSYCHOLOGIST Performed by: FAMILY PSYCHOLOGIST Indications and Patient Condition Indications for airway management: anesthesia Preoxygenated: yes anesthesia circuit Patient position: sniffing Method: asleep Final Airway Details Final airway type: endotracheal airway Final Endotracheal Airway: ETT Cuffed: yes Successful intubation technique: video laryngoscopy Devices used: intubating stylet and Tatum Endotracheal tube insertion site: oral Blade: Dustin Blade size: #3 ETT size (mm): 7.0 Measured from: lips Measurement (cm): 21 Placement verified by: chest auscultation and capnometry Cormack-Lehane Classification: grade I - full view of glottis Number of attempts at approach: 1 SIGNATURE: Consuelo Varner APRN.FAMILY PSYCHOLOGIST PATIENT NAME: Isak Harvey DATE: February 08, 2022 TIME: 10:00 AM CSN: [id number] History and physical note* Reta Thompson APRN.KITCHEN AND BATH DESIGNER - 02/01/2022 11:20 AM EST HISTORY AND PHYSICAL EXAMINATION SERVICE DATE: 02/01/2022 SERVICE TIME: 12:55 PM PRIMARY CARE PHYSICIAN: No primary care provider on file. REASON FOR VISIT: Isak Harvey is a 51 year old female who is scheduled for Procedure(s): ROBOTIC LAPAROSCOPIC REPAIR HERNIA REDUCIBLE VENTRAL W/MESH (N/A) at the request of Dr. Stanford Callejas for routine H&P. My final recommendation will be communicated back to the requesting physician by way of shared medical record or letter. Subjective The patient has the following: ACTIVE PROBLEM LIST Umbilical Hernia Without Obstruction Or Gangrene COVID-19 Immunization Status Overdue - COVID-19 VACCINE (1) Overdue - never done No completion, postpone, frequency change, or communication history exists for this topic. CHIEF COMPLAINT: pre-op exam HPI: Isak is a 51 year old female who presents for presurgical testing. She states she has had aright inguinal hernia and abdominal hernia for a couple years. She endorses burning pain in her right groin. She denies problems with her bowel and bladder. She was referred to the surgeon, discussedoptions and is agreeable to surgical intervention. REVIEW OF SYSTEMS: General: No weight loss, malaise or fevers. Neurological: Negative for: headaches and seizures. Respiratory: + recently quit smoking- about 5 weeks ago Negative for: asthma, COPD, current cough, dyspnea, tobacco use and obstructive sleep apnea. Cardiovascular: Negative for: anticoagulation therapy, arrhythmia, atrial fibrillation, CAD, chest pain, DVT/PE andhyperlipidemia. GI: See HPI. Negative for: dysphagia, nausea and vomiting. : Negative for: frequent urination, hematuria and urgency. Endocrine: Negative for: diabetes mellitus, hyperthyroidism, hypothyroidism and hyperparathyroidism. Hematology: Negative for: anemia, bruises/bleeds easily and chronic anti- coagulation/platelet meds. Oncology: + hx cervical cancer s/p hysterectomy Psych: Negative for: anxiety and depression. Musculoskeletal: Negative for joint pain or swelling, back pain or muscle pain. Positive for: back pain and joint pain. Skin: Negative for lesions, rash and itching. PAST MEDICAL HISTORY Diagnosis Date Arthritis Back pain Cervical cancer (HCC) Fatigue Lab test positive for detection of COVID-19 virus 02/2021 Restless legs syndrome Scoliosis Tubal Ventral hernia PAST SURGICAL HISTORY Procedure Laterality Date OVARIAN CYSTECTOMY PAST SURGICAL HISTORY OF Left 2012 tumor side TOTAL ABDOM HYSTERECTOMY N/A 2000s TOTAL KNEE REPLACEMENT Left 2002 FAMILY HISTORY Problem Relation Age of Onset Diabetes Father other (CVA) Father Ovarian cancer Sister Social History Tobacco Use Smoking status: Former Packs/day: 0.50 Years: 20.00 Pack years: 10.00 Types: Cigarettes Quit date: 01/03/2022 Years since quittin.0 Smokeless tobacco: Never Substance Use Topics Alcohol use: Never Drug use: Never Prior to Admission medications as of 02/01/22 1126 Medication Sig Last Dose Taking HYDROcodone-Acetaminophen (NORCO) 7.5-325 mg per tablet Take 1 tablet by mouth four times daily as needed. Taking Yes tiZANidine (ZANAFLEX) 4 mg tablet Take 1 tablet by mouth at bedtime as needed. Taking Yes Ascorbic Acid 500 mg cpER Take 1 capsule by mouth once daily. Taking Yes pregabalin (LYRICA) 75 mg capsule Take 75 mg by mouth twice daily. Taking Yes albuterol sulfate 90 mcg/actuation breath activated powder inhaler Inhale 2 Puffs as instructed every 6 hours as needed for wheezing/shortness of breath. Taking Yes fluticasone propionate (FLOVENT HFA) 50 mcg/actuation inhaler Inhale 2 Puffs as instructed as needed. Taking Yes celecoxib (CELEBREX) 200 mg capsule Take 200 mg by mouth once daily. Taking Yes Nicotine 21-14-7 mg/24 hr ptds Apply 1 Patch as directed once daily for 14 days. Patient taking differently: Apply 1 Patch as directed as needed. budesonide-formoterol (SYMBICORT) 80-4.5 mcg/actuation inhaler Inhale 2 Puffs as instructed twice daily. Patient not taking: Reported on 01/31/2022 No medication comments found. ALLERGIES Allergen Reactions Tramadol Unknown Objective PHYSICAL EXAM: General: alert and oriented and healthy appearance. Pertinent negatives noted - not distressed. Skin: normal color, no rash or lesions. HEENT: EOM intact and pupils equal round. Cardiovascular: regular rate and rhythm, normal S1 and S2, no rub, murmurs, or gallop. Respiratory: normal breath sounds, no wheezes or crackles. No chest wall deformity or tenderness. Abdomen: bowel sounds present and soft. Pertinent negatives noted - not tender. Extremities: no deformity, no edema or tenderness, no joint swelling or clubbing. Neurological: normal cognition and motor skills. Gait normal. No weakness or sensory deficit. PAIN ASSESSMENT: VITALS: BP 141/84 Pulse 87 Temp 99 Resp 18 Ht 5' 4 (1.63m) Wt 166 lb 6.4 oz (75.5kg) SpO2 98% BMI 28.55 kg/(m^2). Diagnostic tests reviewed for today's visit: Hemoglobin A1C (%) Date Value 01/18/2022 5.3 No results found for this or any previous visit (from the past 8760 hour(s)). No results found for this or any previous visit (from the past 16526 hour(s)). Assessment Soto Activity Status Index: METS: Climb a flight of stairs or walk up a hill (5.50 METs) DASI Score: 5.5 Patient denies any chest pain or undue shortness of breath with the above physical activity. ARISCAT Score: Age: 51-80 Preoperative SpO2: >=96% Respiratory infection in the last month: No Preoperative anemia: No Surgical incision: peripheral Duration of surgery: 2-3 hrs Emergency procedure: No ARISCAT Score: 19 ANESTHESIA FINDINGS: Intubation History: No history of difficult intubation Significant Anesthesia Considerations: none Airway History: No history of difficult airway I - PHYSICAL EVALUATION AIRWAY Patient intubated: No. Ruiz present: no DENTAL Dental findings: missing tooth/teeth. Dentures, upper: partial. II - ANESTHESIA PLAN Beta Jeison Monitoring Plan Post Procedure Analgesic Plan Prepared for Surgery: CONSULTS: Patient does not require consults for optimization at this time Planned Anesthetic: The Following Tests/Procedures Have Been Initiated: No orders of the defined types were placed in this encounter. Implantable Devices: total left knee replacement There is no known pertinent medical condition which may affect paulina-operative course Assessment/Plan PLAN Diagnosis: Procedure Diagnosis: Ventral hernia without obstruction or gangrene [K43.9] Planned Procedure: Procedure(s): ROBOTIC LAPAROSCOPIC REPAIR HERNIA REDUCIBLE VENTRAL W/MESH (N/A) The Following Tests/Procedures Have Been Initiated: No orders in epic per surgeon. HIBICLENS chlorhexidine gluconate wash given with patient instructions. Instructions Given to Patient: Instructions located in the after visit summary. Patient given verbal and written preop instructions and voices comprehension and compliance. SIGNATURE: Reta Thompson APRN.CNP PATIENT NAME: Isak Harvey DATE: February 01, 2022 TIME: 7:34 AM PAGER/CONTACT #: documented in this encounterSumma Health12-28-2022 Instructions* Patient Instructions* Reta Thompson APRN.CNP - 02/01/2022 7:33 AM EST PATIENT PREOPERATIVE INSTRUCTIONS Stanford Callejas MD has scheduled you for your procedure at this surgery center: [facility]: [phone], [address] [place], [place] [address] Please read below carefully for your personalized instructions. Arrive at main entrance of hospital. Follow the sign to the blue elevators, the surgery [facility] will be on the left hand side. Date of Surgery:02/08/2022 Time of surgery:9 am Arrival Time for Surgery: 7 am Please be aware that emergency situations arise, which may delay or change your surgical time. If this happens, we will notify you as soon as possible and regret any inconvenience. Dietary Restrictions: -Nothing to eat or drink after midnight except small sip of water with approved medications on AVS. Medications: AVS was given to patient and specific instructions for each medication reviewed. Please continue totake blood pressure medications including day of surgery. Any oral diabetic medications should be held day of surgery. If you are taking insulin please discuss with prescribing physician for pre op instructions. Blood Thinning Medications: - Stop NSAIDS (Ibuprofen, Advil, Aleve, Motrin, Celebrex, Mobic, naproxen, diclofenac, voltaren etc.) 7 days before surgery, as directed by your surgeon. - If you take any of the following blood thinners, please contact your surgeon and the physician who prescribes it for you in order to get perioperative instructions as soon as possible Blood thinners: Aspirin,Coumadin, Plavix, Eliquis, Pradaxa, Xarelto, Lovenox, Brilinta, Effient, Savaysa, etc. - Stop Vitamin E, fish oil, Ginko, Marmora's Wort, flax seed oil, multivitamins, CBD oil, marijuana and other over the counter herbals and dietary supplements 7 days before surgery. This would not apply to cancer patients who are prescribed Marinol or any other prescription form of marijuana or CBD. Please follow up with the provider that manages your diabetes on how to prepare you for surgery. If you are taking the following medications for Type 2 diabetes: Canagliflozin (INVOKANA), dapagliflozin (FARXIGA), and empagliflozin (JARDIANCE) should each be discontinued at least 3 days before scheduled surgery. Ertugliflozin (STEGLATRO) should be discontinued at least four days before scheduled surgery. Pain Medications: - You may take Tylenol (Acetaminophen) or any of your current prescribed pain medications that do not contain aspirin or NSAIDS as needed. Approved medications can be taken the morning of surgery with a sip of water. If you start any new medications after today's visit, please contact the surgeon's office. Important Reminders: - If you use CPAP/BIPAP, bring the machine with you to the surgery center. - If you are prescribed inhalers for breathing, continue using them AND bring them to the surgery center. - Candy, mints, gum and tobacco products are NOT permitted the morning of surgery. - Hearing aids, dentures and glasses may be worn the morning of surgery. - NO jewelry, body piercings, makeup, hairpins or contacts are to be worn the day of surgery. - NO lotion, creams, powders or deodorants on the skin the day of surgery - You will need to have someone else (Family or friend) drive you home once discharged from the hospital. You cannot take a cab or Uber. You are not allowed to drive yourself home after surgery. We recommend that a responsible person stays with you for the first 24 hours after surgery. -If you have a stimulator, implant or pump that requires a remote please bring the remote with you day of surgery. - testing Anesthesia requires testing on all females under the age of 55 without history of tubal ligation or hysterectomy. - If you are scheduled for a COVID vaccine please make sure it is atleast 72 hours before your scheduled surgery. Surgical scrub given day of PST. Please wash with soap either the night before or morning of surgery. Use directly on your skin or with a washcloth. No sponge or loofa. You can use it everywhere except your face. If you are a joint replacement please wash with soap on both the night before and morning of surgery. If you develop symptoms such as a fever, cold, or flu, or have other changes to your health within TWO DAYS of scheduled surgery or the morning of surgery, please contact the surgery center above. Please confirm with your surgeon's office if you need a COVID test prior to your procedure. Currently we are allowing two visitors to accompany you prior to surgery. When you go into surgery your visitors will be able to go the the surgery welcome center if they have a mask on. You are allowed to have one visitor with you back in pre-op. Personal Belongings: - Leave ALL valuables and money at home or with family members. - You will need a form of ID and insurance card to check in the morning of surgery. - You will have to wear a hospital gown during your stay but if you wish to bring undergarments forafter surgery you may. Our anesthesia department recommends reading Prepare for Surgery, Heal Faster: A Guide of [employer] by Damaris Hernández prior to surgery. Reta Thompson APRN.SHASHANK documented in this encounterSumma Health10-18-2022 NoteHNO ID: [id number] Author: Stanford Callejas MD Service: ? Author Type: Physician Type: Progress Notes Filed: 11/22/2021 10:49 AM Note Text: Patient referred by: Surinder aHssan [address] [facility] [address] [facility] [address] HPI: This is a new patient consult from Dr. Hassan. 48-year-old female with symptomatic incisional hernia and inguinal hernia. Has been present for several months. Is getting worse. He does have bulge in the right groin. She states she had umbilical hernia repaired in the past. She currently smokes about a pack a day. She is not diabetic. . PAST MEDICAL HISTORY Diagnosis Date Arthritis Back pain Cervical cancer (HCC) Fatigue Scoliosis Tubal PAST SURGICAL HISTORY Procedure Laterality Date ANES OPEN/SURG ARTHROSCOPIC PROC KNEE JOINT NOS TOTAL ABDOM HYSTERECTOMY N/A TOTAL KNEE REPLACEMENT FAMILY HISTORY Problem Relation Age of Onset Diabetes Father other (CVA) Father Ovarian cancer Sister Current Outpatient Medications Medication Sig HYDROcodone-Acetaminophen (NORCO) 7.5-325 mg per tablet Take 1 tablet by mouth four times daily as needed. tiZANidine (ZANAFLEX) 4 mg tablet Take 1 tablet by mouth at bedtime as needed. Ascorbic Acid 500 mg cpER Take 1 capsule by mouth once daily. pregabalin (LYRICA) 75 mg capsule Take 75 mg by mouth twice daily. albuterol sulfate 90 mcg/actuation breath activated powder inhaler Inhale 2 Puffs as instructed every 6 hours as needed for wheezing/shortness of breath. fluticasone propionate (FLOVENT HFA) 50 mcg/actuation inhaler Inhale 2 Puffs as instructed twice daily. celecoxib (CELEBREX) 200 mg capsule Take 200 mg by mouth once daily. budesonide-formoterol (SYMBICORT) 80-4.5 mcg/actuation inhaler Inhale 2 Puffs as instructed twice daily. lidocaine (LIDODERM) 5 % Apply 1 Patch as directed every 24 hours. Nicotine 21-14-7 mg/24 hr ptds Apply 1 Patch as directed once daily for 14 days. montelukast (SINGULAIR) 10 mg tablet Take 10 mg by mouth daily at bedtime. (Patient not taking: Reported on 11/22/2021) No current facility-administered medications for this visit. ALLERGIES Allergen Reactions Tramadol Unknown REVIEW OF SYSTEMS: GENERAL: No weight loss, malaise or fevers GI: Negative for nausea , vomiting, diarrhea, constipation, and signs of jaundice Positive for abdominal pain RLQ PHYSICAL EXAM: BP 127/85 Pulse 97 Ht 5' 4 (1.63m) Wt 164 lb (74.4kg) SpO2 98% BMI 28.14 kg/(m2). GENERAL APPEARANCE: Well appearing, alert, in no acute distress, well-hydrated, well nourished.. ABDOMEN: Abdomen is soft. There is a reducible umbilical hernia as well as a reducible inguinal hernia. There are no skin changes. NEURO: Alert, oriented x3, no asterixis, speech clear and articulate, and SANCHEZ HEART: regular rate and rhythm, without murmur LUNGS: clear to auscultation, without rales or wheeze, good air exchange DATA: Diagnostic tests reviewed for today's visit: Most recent labs Most recent imaging I spent a total of 60 minutes on the date of the service which included preparing to see the patient, [id number] patient care, completing clinical documentation, obtaining and/or reviewing separately obtained history, performing a medically appropriate examination, counseling and educating the patient/family/caregiver, ordering medications, tests, or procedures, and communicating results to the patient/family/caregiver. . Greater than 50% of the direct patient contact time was spent in counseling or coordination of care. Medical Decision Making: Medical Decision Making Level: 1 - N/A ASSESSMENT / PLAN: 1. Incisional hernia, without obstruction or gangrene I reviewed her CT scan. This shows evidence of an incisional hernia at the umbilicus as well as the inguinal hernia. I do believe she would be an excellent candidate for robotic repair of each. Risk and benefits of the operation including but access to bleeding infection and possibility of postoperative recurrence were discussed with her and she wished to move forward the operation. She will need to be off tobacco prior to surgery. I will give her nicotine patches to aid in this. Stanford Callejas MD Please Note: This office note has been created using [employer], a speech recognition software program, and may contain errors including punctuation, grammar, spelling, gender, and inappropriate words or phrases that pertain to the sytem.[facility] note No data available for this section [facility] Evaluation noteNo assessment information available [facility] Work Phone: Evaluation note* Diagnosis Ventral hernia without obstruction or gangrene- Primary Ventral hernia, unspecified, without mention of obstruction or gangrene Ventral hernia without obstruction or gangrene Ventral hernia, unspecified, without mention of obstruction or gangrene documented in this encounter [facility] note* Diagnosis Pre-op exam [Z01.818 (ICD-10-CM)]- Primary Preoperative examination, unspecified Ventral hernia without obstruction or gangrene [K43.9 (ICD-10-CM)] Ventral hernia, unspecified, without mention of obstruction or gangrene Ventral hernia without obstruction or gangrene Ventral hernia, unspecified, without mention of obstruction or gangrene documented in this encounter [facility] note* Diagnosis Umbilical hernia without obstruction or gangrene Umbilical hernia without mention of obstruction or gangrene documented in this encounter [facility] note* Diagnosis S/P hernia repair- Primary Other postprocedural status Umbilical hernia without obstruction or gangrene Umbilical hernia without mention of obstruction or gangrene documented in this encounter [facility] note* Diagnosis S/P hernia repair- Primary Other postprocedural status documented in this encounter [facility] note* Diagnosis Onset Date Resolution Status Muscular abdominal pain in left upper quadrant acute Screening for thyroid disorder acute Right foot pain chronic [facility] Work Phone: Evaluation note* Diagnosis Onset Date Resolution Status Pre-op evaluation acute Restless leg acute Right foot pain chronic Primary osteoarthritis, left ankle and foot acute Primary osteoarthritis, right ankle and foot acute [facility] Work Phone: Hospital Discharge instructions Additional Instructions Keep dressing clean dry and intact till follow-up in 1 week Maintain nonweightbearing assisted by crutches versus walker versus knee scooter to right lower extremity Use Lovenox as prescribed for DVT prophylaxis Ice behind knee 3 times a day for 15 minutes on operative limb Elevate right lower extremity above level of heart for edema management as well as pain control Take all other prescriptions as [facility] Work Phone: Hospital Discharge instructions No data available for this section [facility] Progress note No data available for this section [facility] Reason for referral (narrative)No reason for referral information availableDo[facility] Work Phone: Chief Complaint and Reason for Visit Chief Complaint abdominal pain Chief Complaint SOB Chief Complaint SOB [facility] FU PAIN IN RIGHT FOOT Reason for Visit Muscular abdominal p ain in left upper quadrant Screening for thyroid disorder Right foot pain Chief Complaint PAIN IN RIGHT FOOT Peripheral vascular disease, unspecified SURGICAL CLEARANCE E-ORDER Right midfoot fusion with excision Reason for Visit Pre-op evaluation Restless leg Right foot pain Primary osteoarthritis, left ankle and foot Primary osteoarthritis, right ankle and foot Chief Complaint Admit Date ACUTE -6 wk FU March 07, 2024 1 2:30pm 6 wk FU April 18, 2024 12: 30pm Other specified peripheral vascular dise ases May 27, 2024 11:25am PVD May 27, 2024 11: 31am 6 wk FU May 30, 2024 9:3 2am 1 M FU July 04, 2024 9:58a m Reason for Visit Admit Date Tobacco abuse March 07, 2024 1 2:30pm Anxiety and depression March 07 12:30pm Chronic back pain March 07, 2024 1 2:30pm Chest pain April 18, 2024 12: 30pm Eustachian tube dysfunction April 18, 2024 12:30pm Anxiety and depression April 18, 2024 12:30pm Anxiety and depression May 30, 2024 9:32am Chief Complaint Admit Date 1 M FU July 04, 2024 9:58a m TRAMA, /RIGHT FOOT September 25, 2024 4: 40pm Reason for Visit Admit Date Anxiety and depression July 04, 2024 9: 58am Family History No Family History Records Found Relationship Condition Age at Onset Recorded Date/T radha Not Specified Malignant neoplasm Unknown father Diabetes mellitus Unknown Cerebrovascular accident (CVA) Unknown sister Malignant neoplasm of ovary Unknown son Cardiac disease Unknown Advance Directives No Advanced Directives Records Found Advance Directive Response Recorded Date/ Time Advance Directives No May 12 8:09am Living Will No November 02, 2021 10:03am Power of Industrial Registered Nurse No October 10:03am Advance Directive Response Recorded Date/ Time Advance Directives No May 12 8:09am Living Will No October 16, 2022 9:41am Power of Industrial Registered Nurse No October 9:41am Advance Directive Response Recorded Date/ Time Advance Directives No May 12 7:09am Living Will No October 16, 2022 8:41am Power of Industrial Registered Nurse No October 8:41am Advance Directive Response Recorded Date/ Time Advance Directives No May 12 8:09am Living Will No April 18, 2023 2:34pm Power of Industrial Registered Nurse No April 17 2:34pm Advance Directive Response Recorded Date/ Time Living Will No April 18, 2023 2:34pm Do you have a Healthcare Power of Industrial Registered Nurse? No April 18, 2023 2:34pm Advance Directives No May 12 8:09am Advance Directive Response Recorded Date/ Time Advance Directives No May 12 8:09am Reason for Referral Specialty Diagnoses / Procedures Referred By Contac t Referred To Contact Diagnoses Umbilical hernia without obstruction or gangrene Stanford Callejas MD [address] [address] Referral ID Status Reason Start Date Expiration Date Visits Re quested Visits Authorized [id number] Closed 1 1 Specialty Diagnoses / Procedures Referred By Contalexis t Referred To Contact CT IMAGING Diagnoses S/P hernia repair Procedures CT ABD/PEL W IVCON CT ABD & PELVIS W/CONTRAST Catarino Haas PA-C [address] [place] [address] Ct Imaging Referral ID Status Reason Start Date Expiration Date Visits Requested Visits Authorized [id number] Authorized Auto-Generat ed Referral 03/16/2022 04/15/2022 1 1 Summary Purpose Additional Source Comments Goals (unrecognized section and content) Goals may be documented in a n alternate sectionGoals may be documented in an alternate sectionGoals may be documented in an alternate section No data available for this sectionGoals may be documented in an alternate sectionGoals may be documented in an alternate section Source Comments (unrecognize d section and content) In the event this informatio n is protected by the Federal Confidentiality of Alcohol and Drug Abuse Patient Records regulations: The Federal rules restrict any use of the information to criminally investigate or prosecute any alcohol or drug abuse patient.[facility] HealthIn the event this information is protected by the Federal Confidentiality of Alcohol and Drug Abuse Patient Records regulations: The Federal rules restrict any use of the information to criminally investigate or prosecute any alcohol or drug abuse patient.[facility] HealthIn the event this information is protected by the Federal Confidentiality of Alcohol and Drug Abuse Patient Records regulations: The Federal rules restrict any use of the information to criminally investigate or prosecute any alcohol or drug abuse patient.[facility] HealthIn the event this information is protected by the Federal Confidentiality of Alcohol and Drug Abuse Patient Records regulations: The Federal rules restrict any use of the information to criminally investigate or prosecute any alcohol or drug abuse patient.[facility] HealthIn the event this information is protected by the Federal Confidentiality of Alcohol and Drug Abuse Patient Records regulations: The Federal rules restrict any use of the information to criminally investigate or prosecute any alcohol or drug abuse patient.[facility] HealthIn the event this information is protected by the Federal Confidentiality of Alcohol and Drug Abuse Patient Records regulations: The Federal rules restrict any use of the information to criminally investigate or prosecute any alcohol or drug abuse patient.[facility] HealthIn the event this information is protected by the Federal Confidentiality of Alcohol and Drug Abuse Patient Records regulations: The Federal rules restrict any use of the information to criminally investigate or prosecute any alcohol or drug abuse patient.[facility] Reason for Visit (unrecogniz ed section and content) Reason Comments Patient Question Reason Comments Post Op Follow Up Mrs. Harvey is here to day for a s/p incisional hernia. Reason Comments Post-Op Visit Mrs. Harvey is here to day for her s/p hernia repair. Reason Comments Abdominal Pain Care Teams (unrecognized sec tion and content) Marketing And Communications Officer Relationship Specialty Start Date End Date Laina Marinelli MD [address] [place] [address] PCP - General Internal Medicine 02/08/22 Marketing And Communications Officer Relationship Specialty Start Date End Date Laina Marinelli MD [address] [place] [address] PCP - General Internal Medicine 02/08/22 Marketing And Communications Officer Relationship Specialty Start Date End Date Laina Marinelli MD [address] [place] [address] PCP - General Internal Medicine 02/08/22 Marketing And Communications Officer Relationship Specialty Start Date End Date Laina Marinelli MD [address] [place] [address] PCP - General Internal Medicine 02/08/22 Team Status: Active Member Role Status Dates No Primary Care Physician Family Provider Active Dr. Laina Marinelli MD Primary Care Provider Active Team Status: Inactive Member Role Status Dates Dr. Laina Marinelli MD Primary Care Provider Active Dr. Onesimo Gomez DO Emergency Provider Active Team Status: Inactive Member Role Status Dates Dr. Laina Marinelli MD Primary Care P rovider, Attending Provider, Referring Provider Active Team Status: Inactive Member Role Status Dates Dr. Laina Marinelli MD Primary Care Provider Active Dr. Kaden Flower DPM Attending Provider, Referring Provider Active Team Status: Inactive Member Role Status Dates Dr. Laina Marinelli MD Primary Care Provider Active Dr. Onesimo Gomez DO Attending Provider, Emergency P rovider Active Team Status: Inactive Member Role Status Dates Dr. Laina Marinelli MD Primary Care Provider, Refer ring Provider Active Ashleigh Ferullo , SEISMOLOGY TEACHER-C Attending Provider Active Team Status: Active Member Role Status Dates Dr. Laina Marinelli MD Primary Care Provider Active Ashleigh Jett NP-C Attending Provider, Referring Pro vider Active Team Status: Inactive Member Role Status Dates Dr. Laina Marinelli MD Primary Care Provider Active Ashleigh Jett SEISMOLOGY TEACHER-C Attending Provider, Referring Pro vider Active Team Status: Active Member Role Status Dates Dr. Laina Marinelli MD Primary Care Provider Active Team Status: Inactive Member Role Status Dates SHEILA Kitchen Attending Provider Active St art: March 07, 2024 End: March 07, 2024 Dr. Laina Marinelli MD Primary Care Provider Active Start: March 07, 2024 End: March 07, 2024 Dr. Laina Marinelli MD Referring Provider Active Start: March 07, 2024 End: March 07, 2024 Team Status: Inactive Member Role Status Dates Dr. Laina Marinelli MD Primary Care Provider Active Start: April 18, 2024 End: April 18, 2024 Dr. Laina Marinelli MD Referring Provider Active Start: April 18, 2024 End: April 18, 2024 SHEILA Kitchen Attending Provider Active St art: April 18, 2024 End: April 18, 2024 Team Status: Inactive Member Role Status Dates Dr. Laina Marinelli MD Primary Care Provider Active Start: May 27, 2024 End: May 27, 2024 Dr. Kaden Flower DPM Attending Provider Active Start: May 27, 2024 End: May 27, 2024 Dr. Kaden Flower DPM Referring Provider Active Start: May 27, 2024 End: May 27, 2024 SHEILA Kitchen Other Provider Active Start: May 27, 2024 End: May 27, 2024 Team Status: Active Member Role Status Dates Dr. Levi Garrett MD Attending Provider Active Start: May 27, 2024 Dr. Kaden Flower DPM Referring Provider Active Start: May 27, 2024 Team Status: Inactive Member Role Status Dates Dr. Laina Marinelli MD Primary Care Provider Active Start: May 30, 2024 End: May 30, 2024 Dr. Laina Marinelli MD Referring Provider Active Start: May 30, 2024 End: May 30, 2024 SHEILA Kitchen Attending Provider Active St art: May 30, 2024 End: May 30, 2024 Team Status: Inactive Member Role Status Dates Dr. Laina Marinelli MD Primary Care Provider Active Start: July 04, 2024 End: July 04, 2024 Dr. Laina Marinelli MD Referring Provider Active Start: July 04, 2024 End: July 04, 2024 SHEILA Kitchen Attending Provider Active St art: July 04, 2024 End: July 04, 2024 Team Status: Active Member Role/Relationship Status Dates Dr. Laina Marinelli MD Primary Care Provider Active Team Status: Inactive Member Role/Relationship Status Dates Dr. Laina Marinelli MD Primary Care Provider Active Start: July 04, 2024 End: July 04, 2024 Dr. Laina Marinelli MD Referring Provider Active Start: July 04, 2024 End: July 04, 2024 SHEILA Kitchen Attending Provider Active St art: July 04, 2024 End: July 04, 2024 Team Status: Inactive Member Role/Relationship Status Dates Dr. Laina Marinelli MD Primary Care Provider Active Start: September 25, 2024 End: September 25, 2024 Dr. Andrew Pino MD Attending Provider Active Start: September 25, 2024 End: September 25, 2024 Dr. Andrew Pino MD Referring Provider Active Start: September 25, 2024 End: September 25, 2024 Dr. Amado Meraz DPM Other Provider Active Start: September 25, 2024 End: September 25, 2024 INFORMATION SOURCE (unrecogn ized section and content) DATE CREATED AUTHOR 04/01/[address] [facility] DATE CREATED AUTHOR AUTHOR'S ORGANIZ ATION 10/21/2022 [facility] DATE CREATED AUTHOR AUTHOR'S ORGANIZ ATION 02/23/2024 [facility] DATE CREATED AUTHOR AUTHOR'S ORGANIZ ATION 10/11/2024 [facility] FOR RECORDS PERTAINING TO PATIENTS WHO ARE OR HAVE BEEN ENROLLED IN A CHEMICAL DEPENDENCY/SUBSTANCEABUSE PROGRAM, SOME INFORMATION MAY BE OMITTED. This clinical summary was aggregated from multiple sources. Caution should be exercised in using it in the provision of clinical care. This summary normalizes information from multiple sources, and as a consequence, information in this document may materially change the coding, format and clinical context of patient data. In addition, data may be omitted in some cases. CLINICAL DECISIONS SHOULD BE BASED ON THE PRIMARY CLINICAL RECORDS. [facility]. provides no warranty or guarantee of the accuracy or completeness of information in this document.
--- NOTE | 2024-11-30 13:11 | EX.ED.DYSGE1 ---
HPI History of Present Illness Chief Complaint: Rash Informant: patient Narrative Narrative: 54-year-old female presenting to the emergency room out of concern for shingles. Patient states that about a week ago she had a diffuse pruritus. There is no that went away and a few nights ago she began to have a burning pain across to her right chest and developed a rash. She states that she has chronic pain in her back and takes several medications for that including Lyrica pregabalin and hydrocodone. She states that that has not been helping her and she wanted to get this evaluated. She notes some of the rashes on the right breast as well as in the back. She notes a generalized fatigue sensation. [facility] Medical History Health care maintenance Chronic pain Anxiety and depression Loose, teeth Teeth missing MRSA infection Cancer Anxiety Chronic cough Smoker History of edema Muscular abdominal pain in left upper quadrant Right foot pain Screening for thyroid disorder Scoliosis History of abscess of skin and subcutaneous tissue Cervical cancer Tubal Back pain Knee pain Fatigue Arthritis Home Medications ?Medication ?Instructions ?Recorded ?Last Taken ?Type hydrocodone 7.5 mg-acetaminophen 1 tab PO 4X/DAY PRN pain 02/16/17 04/26/23 History 325 mg tablet ascorbic acid (vitamin C) 500 mg 500 mg PO DAILY 04/28/19 04/25/23 History capsule pregabalin 75 mg capsule 75 mg PO BID 05/06/19 04/25/23 History celecoxib 200 mg capsule 200 mg PO DAILY 06/11/20 04/25/23 History tizanidine 4 mg tablet 4 mg PO QHS PRN muscle spasticity 04/18/23 Unknown History acetaminophen 500 mg capsule 500 mg PO Q6H PRN pain #30 caps 04/27/23 Unknown Rx buspirone 7.5 mg tablet 7.5 mg PO BID #180 tabs 07/04/24 Unknown Rx duloxetine 20 mg capsule,delayed 20 mg PO BID #180 caps 07/04/24 Unknown Rx release (Cymbalta) acyclovir 800 mg tablet 800 mg PO 5X/DAY #35 TABLETS 11/30/24 Unknown Rx oxycodone-acetaminophen 5 mg-325 1 tab PO Q6H PRN PRN Pain 3 days 11/30/24 Unknown Rx mg tablet #12 TABLETS prednisone 20 mg tablet 60 mg (3 x 20 mg) PO DAILY #15 11/30/24 Unknown Rx TABLETS Allergy/AdvReac Type Severity Reaction Status Date / Time tramadol Allergy Other Verified 11/30/24 12:42 Family History Father Diabetes CVA (cerebral vascular accident) Sister Ovarian cancer Son , at 6 weeks - CHF Heart disease Other Cancer Surgical History Hx of hernia repair History of knee replacement History of arthroscopic knee surgery History of hysterectomy Social History Smoking Status: Current some day smoker tobacco type: cigarettes alcohol intake: current alcohol intake frequency: holidays/special occasions only substance use type: does not use what type of physical activity do you participate in: walking ROS ROS ED Constitutional Constitutional ED: Reports other Details: Generalized fatigue ; Denies chills, fever(s) or weight loss Eyes Eyes: Denies change in vision or diplopia ENT ENT ED: Denies ear pain, rhinorrhea or sore throat Cardiovascular Cardiovascular: Reports chest pain; Denies orthopnea, palpitations or racing heartbeat Respiratory/Chest Respiratory/Chest: Denies cough, dyspnea or orthopnea Gastrointestinal Gastrointestinal: Denies abdominal pain, diarrhea, nausea or vomiting Genitourinary Genitourinary ED: Denies dysuria, hematuria or urinary frequency Musculoskeletal Musculoskeletal: Reports back pain; Denies arthralgias or myalgias Integumentary Reports rash; Denies abscess Neurologic Neurologic: Denies headache(s) or weakness Psychiatric Psychiatric: Denies anxiety, depression, suicidal ideation or suicidal thoughts Endocrine Endocrinology: Denies polydipsia, polyphagia or polyuria Allergic/Immunologic Allergic/Immunologic ED: Denies mouth swelling, tongue swelling or urticaria EXAM Physical Exam Const Vital Signs: 11/30/24 12:42 Temperature 98.7 F Temperature Source Oral Pulse Rate 96 Respiratory Rate 16 Blood Pressure 143/93 H Blood Pressure Mean 109 Pulse Ox 98 Oxygen Delivery Method Room Air Positive well nourished and well developed General Appearance ED: well developed and NAD HEENT Reports normocephalic, head/scalp atraumatic and moist mucous membranes Eyes PERRL and EOMs intact bilaterally Neck no lymphadenopathy, supple and no JVD Resp normal respiratory effort and clear to auscultation bilaterally Cardio regular rate, regular rhythm and no murmurs GI normal to inspection, nondistended, normoactive bowel sounds and non-tender Palpation: soft Back/Spine no CVA tenderness and normal ROM Extremity normal to inspection General Extremety ED: Negative for edema General Extremity: Negative for edema Neuro oriented x3 and CN's II-XII intact bilaterally Sensorium / Orientation: alert Motor Exam: strength 5/5 throughout Psych mental status grossly normal Mood & Affect: Negative for depressed or tearful Skin no wounds Skin Narrative: There are discrete lesions that appear to be crusting over consistent with shingles involving the right breast and in the associated rib region on the posterior thorax. There is no signs of secondary infection. Some of the lesions are not crusted over yet. MDM MDM MDM Narrative Medical decision making narrative: Differential diagnosis includes shingles malignancy impetigo candidiasis cellulitis Based on the physical exam this is most likely herpes zoster. We talked about a variety of treatments for this. He is reasonable we prescribe acyclovir as well as some prednisone. I can write for some Percocet for pain if that may help her more than the [place]. She was advised that she should not take both together she notes understanding of this. I advised follow-up with primary care. We talked about being infectious to other people and to keep the lesions covered. History & Record Review Discussion w/independent historian: Patient Discharge Plan Triage Chief Complaint: Rash ED Provider: Kaden Lay Dx/Rx/DC Orders Clinical Impression: Shingles outbreak, Chest pain Instructions: ED Shingles (Herpes Zoster) Prescriptions: New acyclovir 800 mg tablet 800 mg PO 5X/DAY Qty: 35 0RF oxycodone-acetaminophen 5-325 mg tablet 1 tab PO Q6H PRN PRN (Reason: Pain) 3 Days Qty: 12 0RF prednisone 20 mg tablet 60 mg PO DAILY Qty: 15 0RF No Action ascorbic acid (vitamin C) 500 mg capsule 500 mg PO DAILY pregabalin 75 mg capsule 75 mg PO BID duloxetine [Cymbalta] 20 mg capsule,delayed release(DR/EC) 20 mg PO BID Qty: 180 1RF buspirone 7.5 mg tablet 7.5 mg PO BID Qty: 180 1RF hydrocodone-acetaminophen 1 TABLET tablet 1 tab PO 4X/DAY PRN (Reason: pain) Patient Comments: TAKE 1 TABLET BY MOUTH 4 TIMES A DAY celecoxib 200 mg capsule 200 mg PO DAILY tizanidine 4 mg tablet 4 mg PO QHS PRN (Reason: muscle spasticity) acetaminophen 500 mg capsule 500 mg PO Q6H PRN (Reason: pain) Qty: 30 0RF Primary Care Provider: Gerardo Marienlli Referrals: Gerardo Marinelli MD [Primary Care Provider, Internal Medicine] - 3-5 Days Print Language: Citizen [place] Disposition Disposition: Home, Self Care
[2024-11-30 13:19] VITALS: BP 141/86; PULSE 91; RESP 16; TEMP 36.8; O2SAT 99
== END 2024-11-30 13:20 | disposition home or self-care (01) ==
PROVIDERS: Emergency Provider Emergency Medicine; PCP Internal Medicine; Visit Provider Emergency Medicine
DX: B02.9 Zoster without complications (principal); R07.9 Chest pain, unspecified; M54.9 Dorsalgia, unspecified; G89.29 Other chronic pain; F17.210 Nicotine dependence, cigarettes, uncomplicated
CPT/HCPCS: 99282

== ENCOUNTER → 2024-12-29 | Outpatient (CLI) | payer MEDICAID, SELFPAY | END | disposition home or self-care (01) | LOC: PSN 10:55 | PROVIDERS: PCP Internal Medicine; Referring Provider Internal Medicine; Visit Provider Internal Medicine | DX: R05.3 Chronic cough (principal) | CPT/HCPCS: 94060; 94726; 94729 ==

== ENCOUNTER 2025-01-19 14:31 | Outpatient (RCR) | payer MEDICAID, SELFPAY ==
--- NOTE | 2025-01-26 10:51 | HP.OTFCE_ITS ---
Task Lift Floor (Occasional 1-33% of Day): 15# Floor (Frequent 34-66% of Day): 8# Floor (Constant 67-100% of Day): NA Floor PDL: Sedentary-Light Knee (Occasional 1-33% of Day): 15# Knee (Frequent 34-66% of Day): 8# Knee (Constant 67-100% of Day): NA Knee PDL: Sedentary-Light Waist (Occasional 1-33% of Day): 15# Waist (Frequent 34-66% of Day): 8# Waist (Constant 67-100% of Day): NA Waist PDL: Sedentary-Light Shoulder (Occasional 1-33% of Day): 10# Shoulder (Frequent 34-66% of Day): NA Shoulder (Constant 67-100% of Day): NA Shoulder PDL: Sedentary Overhead (Occasional 1-33% of Day): NA Overhead (Frequent 34-66% of Day): NA Overhead (Constant 67-100% of Day): NA Overhead PDL: No Ability Work Activity/Posture Bending: Occasional Ability (1-33% of day) Squatting: Occasional Ability (1-33% of day) Comments: with external support Kneeling: Occasional Ability (1-33% of day) Comments: with external support Reaching out: Occasional Ability (1-33% of day) Reaching up: Occasional Ability (1-33% of day) Sitting: Frequent Ability (34-66% of day) Walking: Occasional Ability (1-33% of day) Standing: Occasional Ability (1-33% of day) Reference Reference: Duration Sedentary Sedentary Light Light Light Medium Medium Medium Heavy Very Heavy Heavy Occasional (0-33% of day) Frequent (34-66% of day) Constant (67-100% of day) 10 # Negligible Negligible 15 # 8 # Negligible 20 # 10# Negli. 35 # 18 # 7 # 50 # 25 # 10 # 75 # 100 # >100 # 38 # 50 # >50 # 15 # 20 # >20 # Patient Information Height: 1.63 m Weight:: 81.647 kg Hand Dominance: left Medical History Medical History Including Restrictions: pt states she was approved disability May of 2024. She is here as her work she paid into a alf disability by [employer] and she is here to get that covered. Pt states she feels Dr. Pino is wanting to know where her baseline is. Pt states she underwent a right foot sx in April 2022. [facility]. Pt is to have another foot sx in 2025. pt states she has been seen by Dr. Pino for the last 10 years where she is giving her back injections and pain mtg. Pt state the back injections use to work but last few times she has had injections they were not helpful. pt states she is not sure when she had her last back MRI or even spoke to a spine surgeon. pt states she has 1 back injection every 3 months. Pt states this does help but has noticed they do not last as long. Pt states her and her family will need to have a talk to see if she can see a captain waiter/waitress. pt is taking Lyrica inhalers pt is a smoker since she was 13 years old. Pt states she is only smoking 8-9 cirg. compared to smoking a pack a day. emphysema and COPD dx and will try to see a fire code inspector in the future Cymbalta for her anxiety busprone for anxiety [place] for pain mtg. pt states she does take a multi vitamin daily pt states she has not had a MRI in the last few years but feels her symptoms are getting worse and the pain injections for her back have not been helpful. Diagnoses Diagnoses: Left TKR hx about 12 years ago Hernia ( six) of them repair in 2021 Lumbar arthritis pt states multi joint OA Anxiety Symptoms Symptoms: Low back pain left hip pain Bilateral feet right knee pain weakness of legs and UB Pain Pain: pt states sitting she feels low back and hip pain at 6/10 and feels she needs to move after about 20 min. Pt states with daily tasks her pain level gets to 8/10. pt states she take medication to mtg. 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 Pt states she went on medical leave and was unable to return. Behavioral Behavioral: pt cooperative throughout session ADLS ADLS: pt states she lives with her Fiancé ( no date set) have been engaged for last 5 years. Pt states she lives in a two story home. Has 2 entry steps- no railing. pt moved bedroom to down stairs as stairs were getting more challenging. pt has tub shower combination ( no grab bars) pt states she can stand to shower. pt states she is IND with bathing and dressing. Pt states she does the cooking, dishes, and will do the grocery shopping. pt states she will work in the flower garden but colleen does the mowing. colleen does the laundry Physical Examination ROM: pt demo limited hip flexion pt demo with slight decrease in lumbar flexion and extension ( pt states she feels like something needs to pop) All other ROM is WFL Strength: [employer] peak force muscle testing shoulder flexion Right 12# left 9# shoulder extension right 21# left 22# biceps right 22.5# left 11# triceps right 15# left 12# Hip flexion right 27.5# left 12# Hamstring right 19# left 18# Quadriceps right 22# left 22.5# Right Wigs Salesperson Strength Average: 38.33 Right Wigs Salesperson Strength Percentile: 2% Left Wigs Salesperson Strength Average: 31.66 Left Wigs Salesperson Strength Percentile: 1% Right Lateral Pinch Average: 8.00 Right Lateral Pinch Percentile: 10% Left Lateral Pinch Average: 8.00 Left Lateral Pinch Percentile: 25% Right Tripod Pinch Average: 8.00 Right Tripod Pinch Percentile: 10% Left Tripod Pinch Average: 8.66 Left Tripod Pinch Percentile: 25% Sensation: denies Fine Motor: denies reports IND with pill manipulation, tying shoes Balance: functional reach 8" pt did not loss her balance during assessment. Non Material Handling Activities Bending: pt demo the ability to bend forward 3/3x, 10/10x with external support heart rate starting 76 heart rate following 81 reports pain pt can bend forward on occasional ability Squatting: pt demo the ability to squat 3/3x and 10/10 with external support pt struggle with ROM heart rate 68 pt can squat on occasional ability Kneeling: pt demo the ability to kneel in limited plane of motion 3/3x pt use of external support heart rate 88 pt can kneel on low occasional ability with use of external support Reaching out/up: pt demo the ability to reach out 3/3x, 10/10x and 10/10x rapidly pt completed while sitting- pt states burning in left arm around shoulder pt demo the ability to reach up over head in limited motion 3/3x 10/10x and 10x rapidly but no change in speed. pts rolled shoulders and neck forward posture limits pt reach of overhead pt looks down when she is reaching up pt reports pain of left shoulder 09/14 pain heart rate 70 pt can reach up/out on occasional ability Walking: pt demo the ability to ambulate a slow antalgic gait pattern with minimal hip flexion with decrease stride length. pt can walk on occasional ability Standing: pt demo the ability to stand for 4 min shifting weight. pt can stand on occasional ability Sitting: pt demo the ability to sit for 40 min with no expressed or apparent discomfort. pt can sit on frequent ability Climbing Stairs: unable Dynamic Occasional Lifting Capacity Floor Lift: pt demo the ability to lift 15# maximally with poor lift mechanics Knee Lift: pt demo the ability to lift 15# maximally with poor lift mechanics Waist Lift: pt demo the ability to lift 15# maximally with poor lift mechanics Shoulder Lift: pt demo the ability to lift 10# maximally with poor lift mechanics Overhead Lift: unable Carrying: pt demo poor ability to carry 15# for 30 feet.
--- NOTE | 2025-01-26 10:51 | HP.OTFCE.D ---
FCE D/C Summary Discharge text: ISAK García YANG was seen for a one time visit for an FCE on 01/19/25 and is discharged.
== END 2025-01-19 19:00 | disposition home or self-care (01) ==
LOC: OT 14:31
PROVIDERS: PCP Internal Medicine; Referring Provider Anesthesiology Pain Medicine; Visit Provider Anesthesiology Pain Medicine
DX: M96.1 Postlaminectomy syndrome, not elsewhere classified (principal)
CPT/HCPCS: 97750